=== PATIENT | male | born 1945 | race Caucasian/White ===

== ENCOUNTER 2016-06-23 | Outpatient (CLI) | payer MEDICARE, BC | END 2016-06-23 03:12 | disposition critical access hospital (66) | CPT/HCPCS: A0425; A0429 ==

== ENCOUNTER 2016-06-23 03:22 | Emergency (ER) | payer MEDICARE, BC ==
[2016-06-23] MEDS ORDERED: DEXAMETHASONE 10 MG/ML VIAL PO STA (04:08)
[2016-06-23] MEDS ORDERED: HYDROmorphone 1 MG/ML SYRINGE IM STA ×2 (04:08→04:58)
[2016-06-23] MEDS ORDERED: KETOROLAC 60 MG/2 ML VIAL IM STA (04:08)
[2016-06-23] MEDS ORDERED: ACYCLOVIR 200 MG CAPSULE PO STA (04:08)
[2016-06-23] MEDS ORDERED: ONDANSETRON ODT 4 MG TABLET TL STA (04:09)
[2016-06-23] MEDS ORDERED: ONDANSETRON ODT 4 MG TABLET ONE (04:17)
[2016-06-23] MEDS ORDERED: KETOROLAC 60 MG/2 ML VIAL ONE (04:17)
[2016-06-23] MEDS ORDERED: CHERRY SYRUP 10 ML UDC PO ONE (04:17)
[2016-06-23] MEDS ORDERED: ACYCLOVIR 200 MG CAPSULE PO ONE (04:17)
[2016-06-23] MEDS ORDERED: DEXAMETHASONE 10 MG/ML VIAL ONE (04:17)
[2016-06-23] MEDS ORDERED: HYDROmorphone 1 MG/ML SYRINGE ONE ×2 (04:17→05:01)
== END 2016-06-23 05:23 | disposition home or self-care (01) ==
DX: B02.9 Zoster without complications (principal); M54.5 Low back pain; R21 Rash and other nonspecific skin eruption; I10 Essential (primary) hypertension; E11.9 Type 2 diabetes mellitus without complications; Z79.84 Long term (current) use of oral hypoglycemic drugs
CPT/HCPCS: 96372; 99283; 99284; A9270; J1170; Q0162

== ENCOUNTER 2016-07-05 09:35 | Outpatient (CLI) | payer MEDICARE, BC | END 2016-07-05 09:36 | disposition home or self-care (01) | DX: E11.9 Type 2 diabetes mellitus without complications (principal); I10 Essential (primary) hypertension ==

== ENCOUNTER 2017-04-20 10:20 | Outpatient (CLI) | payer MEDICARE, BC ==
[2017-04-20 16:11] LABS: BASOPHILS # (AUTO) 0.1 10^3/uL (0.0-0.1); BASOPHILS % (AUTO) 0.9 %; EOSINOPHILS # (AUTO) 0.1 10^3/uL (0.0-0.7); HCT - HEMATOCRIT 46.9 % (42.0-52.0); HGB - HEMOGLOBIN 15.9 g/dL (14.0-18.0); LYMPHOCYTES # (AUTO) 1.6 10^3/uL (1.5-3.5); LYMPHOCYTES % (AUTO) 22.8 %; MEAN CORPUSCULAR HEMOGLOBIN 29.9 pg (27.0-31.0); MEAN CORPUSCULAR VOLUME 87.9 fL (80.0-94.0); MEAN PLATELET VOLUME 8.6 fL (7.4-11.4); MONOCYTES # (AUTO) 0.6 10^3/uL (0.0-1.0); MONOCYTES % (AUTO) 7.9 %; NEUTROPHILS # (AUTO) 4.7 10^3/uL (1.5-6.6); NEUTROPHILS % (AUTO) 66.4 %; NUCLEATED RED BLOOD CELLS AUTO 0.1 /100WBC; RED BLOOD COUNT 5.33 10^6/uL (4.70-6.10); RED CELL DISTRIBUTION WIDTH 13.3 % (12.0-15.0); UNCORRECTED WHITE BLOOD COUNT 7.1 x10^3/uL; WHITE BLOOD COUNT 7.1 x10^3/uL (4.8-10.8)
[2017-04-20 16:58] LABS: PSA FREE 0.352 ng/mL (0.16-2.81)
[2017-04-20 16:59] LABS: ALBUMIN/GLOBULIN RATIO 1.3 (1.0-2.2); BILIRUBIN,TOTAL 0.7 mg/dL (0.2-1.0); BUN - BLOOD UREA NITROGEN 17 mg/dL (6-20); CARBON DIOXIDE - CO2 25 mmol/L (21-32); CHLORIDE 104 mmol/L (101-111); CHOL/HDL RATIO 4.5 (<5.0); CHOLESTEROL 189 mg/dL; CREATININE 0.8 mg/dL (0.6-1.2); GFR - MDRD 95 (>89); GLUCOSE 283 mg/dL (70-100); HDL CHOLESTEROL 42 mg/dL; LDL/HDL RATIO 2.9 (<3.6); POTASSIUM 4.4 mmol/L (3.5-5.0); PSA TOTAL 1.164 ng/mL (0.000-2.000); SODIUM 137 mmol/L (135-145); TOTAL PROTEIN 7.2 g/dL (6.7-8.2); TRIGLYCERIDES 131 mg/dL; VLDL CHOLESTEROL 26 mg/dL
[2017-04-20 18:04] LABS: HEMOGLOBIN A1C 1.38 g/dL
== END 2017-04-20 10:21 | disposition home or self-care (01) ==
LOC: LAB.WCP 10:20
PROVIDERS: ATTEND Family Medicine
DX: I10 Essential (primary) hypertension (principal); E11.9 Type 2 diabetes mellitus without complications; Z12.5 Encounter for screening for malignant neoplasm of prostate
CPT/HCPCS: 36415; 80053; 80061; 83036; 84154; 85025

== ENCOUNTER 2017-07-31 08:00 | Outpatient (CLI) | payer MEDICARE, BC ==
[2017-07-31 20:01] LABS: HEMOGLOBIN A1C 1.11 g/dL; HEMOGLOBIN A1C % 8.5 % (4.6-6.2)
== END 2017-07-31 08:01 | disposition home or self-care (01) ==
LOC: LAB.WCP 08:00
PROVIDERS: ATTEND Family Medicine
DX: E11.9 Type 2 diabetes mellitus without complications (principal)
CPT/HCPCS: 36415; 83036

== ENCOUNTER 2017-09-03 07:49 | Observation (INO) | payer MEDICARE, BC ==
[2017-09-03] MEDS ORDERED: ONDANSETRON 4 MG/2 ML VIAL IVP STA (08:37)
[2017-09-03] MEDS ORDERED: KETOROLAC 60 MG/2 ML VIAL IVP STA (08:37)
--- NOTE | 2017-09-03 08:40 | ED Physician Documentation ---
PD HPI ABD PAIN - Stated complaint Stated Complaint: MALE /ABD PX VOMITING - Chief complaint Chief Complaint: Abd Pain - History obtained from History obtained from: Patient, Family - History of Present Illness Timing - onset: Enter time (629), Today Timing - duration: Hours Timing - details: Abrupt onset, Still present Quality: Sharp, Pain Location: All over / everywhere, RLQ Radiation: Chest Improved by: Laying still Worsened by: Moving, Position, Palpation Associated symptoms: Nausea, Vomiting, Loss of appetite. No: Fever Similar symptoms before: Has not had sx before Recently seen: Not recently seen - Additional information Additional information: 71-year-old male still employed as a [employer] as developed acute abdominal pain this morning. He indicates that he did not feel well last night after eating dinner but did not have pain at the time. When he awoke this morning he noted pain generally in his abdomen he does have some pain with tenderness in the right lower quadrant and his pain is worse with moving around. He is somewhat more comfortable laying still. Review of Systems Constitutional: denies: Fever Eyes: denies: Decreased vision Ears: denies: Ear pain Nose: denies: Congestion Throat: denies: Sore throat Cardiac: denies: Chest pain / pressure, Palpitations Respiratory: denies: Dyspnea, Cough GI: reports: Abdominal Pain, Nausea, Vomiting, Diarrhea : denies: Dysuria, Frequency Skin: denies: Rash Musculoskeletal: denies: Neck pain, Back pain, Extremity pain Neurologic: denies: Generalized weakness, Focal weakness, Numbness Psychiatric: denies: Depressed PD PAST MEDICAL HISTORY - Past Medical History Past Medical History: Yes Cardiovascular: Hypertension Endocrine/Autoimmune: Type 2 diabetes - Past Surgical History Past Surgical History: Yes - Present Medications Home Medications: Ambulatory Orders Medication Instructions Recorded Confirmed Losartan Potassium [Cozaar] 100 mg PO DAILY 09/03/17 09/03/17 Metoprolol Tartrate [Lopressor] 50 mg PO BID 09/03/17 09/03/17 Sertraline HCl [Zoloft] 100 mg PO DAILY 09/03/17 09/03/17 Tamsulosin [Flomax] 0.4 mg PO QPM 09/03/17 09/03/17 hydroCHLOROthiazide [Hydrodiuril] 25 mg PO DAILY 09/03/17 09/03/17 metFORMIN [Glucophage] 1,000 mg PO BIDWM 09/03/17 09/03/17 - Allergies Allergies/Adverse Reactions: Allergies Allergy/AdvReac Type Severity Reaction Status Date / Time oxycodone AdvReac Mild Hallucinati Verified 09/03/17 07:57 ons - Social History Does the pt smoke?: No Smoking Status: Never smoker Does the pt drink ETOH?: Yes Does the pt have substance abuse?: No - Immunizations Immunizations are current?: Yes - POLST Patient has POLST: No PD ED PE NORMAL - Vitals Vital signs reviewed: Yes (hypertensive) - General General: Alert and oriented X 3, Well developed/nourished, Other (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 ) - HEENT HEENT: Atraumatic, PERRL, EOMI - Neck Neck: Supple, no meningeal sign, No bony TTP - Cardiac Cardiac: RRR, No murmur - Respiratory Respiratory: No respiratory distress, Clear bilaterally - Abdomen Abdomen: Soft, Other (RLQ tenderness is reproducible and there is guarding. There is rebound tenderness referred to the RLQ) - Back Back: No CVA TTP, No spinal TTP - Derm Derm: Normal color, Warm and dry, No rash - Extremities Extremities: No deformity, No edema - Neuro Neuro: Alert and oriented X 3, No motor deficit, No sensory deficit, Normal speech Eye Opening: Spontaneous Motor: Obeys Commands Verbal: Oriented GCS Score: 15 - Psych Psych: Normal mood, Other (flat affect) Results - Vitals Vitals: Vital Signs - 24 hr 09/03/17 09/03/17 09/03/17 07:57 12:35 12:40 Temperature 36.5 C Heart Rate 84 Respiratory 20 Rate Blood Pressure 174/92 H O2 Saturation 99 98 99 09/03/17 09/03/17 09/03/17 12:50 12:56 13:00 Temperature Heart Rate Respiratory Rate Blood Pressure O2 Saturation 97 99 99 09/03/17 09/03/17 09/03/17 13:05 13:11 13:15 Temperature Heart Rate Respiratory Rate Blood Pressure O2 Saturation 92 93 92 09/03/17 09/03/17 09/03/17 13:20 13:25 13:30 Temperature Heart Rate Respiratory Rate Blood Pressure O2 Saturation 92 92 92 09/03/17 09/03/17 13:35 13:40 Temperature Heart Rate Respiratory Rate Blood Pressure O2 Saturation 93 95 Oxygen O2 Source Room air - Labs Labs: Laboratory Tests 09/03/17 09/03/17 09/03/17 08:15 08:45 08:45 WBC 13.9 H RBC 5.22 Hgb 15.4 Hct 44.9 MCV 86.1 MCH 29.6 MCHC 34.3 RDW 13.7 Plt Count 167 MPV 8.5 Neut # 11.8 H Lymph # 1.0 L [place] # 1.0 Eos # 0.1 Baso # 0.1 Absolute Nucleated RBC 0.00 Nucleated RBC % 0.0 Sodium 133 L Potassium 3.8 Chloride 100 L Carbon Dioxide 26 Anion Gap 7.0 BUN 18 Creatinine 0.8 Estimated GFR (MDRD) 95 Glucose 238 H POC Whole Bld Glucose Calcium 8.8 Total Bilirubin 0.8 AST 15 ALT 14 Alkaline Phosphatase 80 Troponin I Total Protein 7.3 Albumin 4.1 Globulin 3.2 Albumin/Globulin Ratio 1.3 Lipase 16 L Urine Color YELLOW Urine Clarity CLEAR Urine pH 5.5 Ur Specific [place] 1.025 Urine Protein NEGATIVE Urine Glucose (UA) 500 H Urine Ketones NEGATIVE Urine Occult Blood NEGATIVE Urine Nitrite NEGATIVE Urine Bilirubin NEGATIVE Urine Urobilinogen 0.2 (NORMAL) Ur Leukocyte Esterase NEGATIVE Ur Microscopic Review NOT INDICATED Urine Culture Comments NOT INDICATED 09/03/17 09/03/17 09/03/17 08:45 11:38 13:14 WBC RBC Hgb Hct MCV MCH MCHC RDW Plt Count MPV Neut # Lymph # [place] # Eos # Baso # Absolute Nucleated RBC Nucleated RBC % Sodium Potassium Chloride Carbon Dioxide Anion Gap BUN Creatinine Estimated GFR (MDRD) Glucose POC Whole Bld Glucose 189 H 203 H Calcium Total Bilirubin AST ALT Alkaline Phosphatase Troponin I < 0.04 Total Protein Albumin Globulin Albumin/Globulin Ratio Lipase Urine Color Urine Clarity Urine pH Ur Specific [place] Urine Protein Urine Glucose (UA) Urine Ketones Urine Occult Blood Urine Nitrite Urine Bilirubin Urine Urobilinogen Ur Leukocyte Esterase Ur Microscopic Review Urine Culture Comments Procedures - Bedside sono Bedside sono by EMP: With use of bedside ultrasound the kidneys are imaged there is renal cyst present bilaterally a larger one on the left than the right both kidneys are sonographically nontender and without evidence of hydronephrosis. The bladder appears to have an average amount of urine in it and is not specifically tender. - IVC sono (time) o830 Bedside IVC sono: IVC measures (cm) (1.57), Euvolemia PD MEDICAL DECISION MAKING - ED course Complexity details: reviewed old records, reviewed results, re-evaluated patient , considered differential, d/w patient, d/w family ED course: 71-year-old male with acute onset of abdominal pain has right lower quadrant tenderness on exam concern is for appendicitis and CT of the abdomen pelvis with IV contrast is obtained.The CT confirms appendicitis and Dr. Mansoor Marie is consulted in the case and takes the patient to the operating room. Departure - Departure Disposition: ED Transfer to [facility] Clinical Impression: Appendicitis Qualifiers: Appendicitis type: acute appendicitis Acute appendicitis type: with localized peritonitis Qualified Code(s): K35.3 - Acute appendicitis with localized peritonitis Condition: Stable Discharge Date/Time: 09/03/17 11:21
[2017-09-03 08:57] LABS: BILIRUBIN,URINE NEGATIVE (NEGATIVE); GLUCOSE, URINE (UA) 500 mg/dL (NEGATIVE); KETONES,URINE (UA) NEGATIVE (NEGATIVE); LEUKOCYTE ESTERASE, URINE NEGATIVE (NEGATIVE); NITRITE,URINE NEGATIVE (NEGATIVE); OCCULT BLOOD,URINE NEGATIVE (NEGATIVE); PH,URINE 5.5 PH (5.0-7.5); PROTEIN,URINE NEGATIVE (NEGATIVE); UROBILINOGEN,URINE 0.2 (NORMAL) E.U./dL (NORMAL)
[2017-09-03 08:57] LABS: BASOPHILS # (AUTO) 0.1 10^3/uL (0.0-0.1); BASOPHILS % (AUTO) 0.5 %; EOSINOPHILS # (AUTO) 0.1 10^3/uL (0.0-0.7); EOSINOPHILS % (AUTO) 0.6 %; HGB - HEMOGLOBIN 15.4 g/dL (14.0-18.0); LYMPHOCYTES % (AUTO) 7.1 %; MEAN CORPUSCULAR HEMOGLOBIN 29.6 pg (27.0-31.0); MEAN CORPUSCULAR HGB CONC 34.3 g/dL (32.0-36.0); MEAN CORPUSCULAR VOLUME 86.1 fL (80.0-94.0); MEAN PLATELET VOLUME 8.5 fL (7.4-11.4); MONOCYTES % (AUTO) 7.2 %; NEUTROPHILS # (AUTO) 11.8 10^3/uL (1.5-6.6); NEUTROPHILS % (AUTO) 84.6 %; PLT - PLATELET COUNT 167 10^3/uL (130-450); RED BLOOD COUNT 5.22 10^6/uL (4.70-6.10); RED CELL DISTRIBUTION WIDTH 13.7 % (12.0-15.0); WHITE BLOOD COUNT 13.9 x10^3/uL (4.8-10.8)
[2017-09-03 08:59] LABS: CLARITY,URINE CLEAR (CLEAR)
[2017-09-03 09:09] LABS: ALBUMIN 4.1 g/dL (3.2-5.5); ALBUMIN/GLOBULIN RATIO 1.3 (1.0-2.2); BILIRUBIN,TOTAL 0.8 mg/dL (0.2-1.0); CALCIUM 8.8 mg/dL (8.5-10.3); CREATININE 0.8 mg/dL (0.6-1.2); TOTAL PROTEIN 7.3 g/dL (6.7-8.2)
[2017-09-03] MEDS ORDERED: IOPAMIDOL-300 100 ML VIAL ONE (09:20)
--- NOTE | 2017-09-03 09:51 | CT Report ---
EXAM: CT ABDOMEN AND PELVIS EXAM DATE: 09/03/2017 09:28 AM. CLINICAL HISTORY: RLQ and general abdominal pain. COMPARISONS: CT KUB 03/21/2016. TECHNIQUE: Routine helical CT imaging was performed through the abdomen and pelvis. IV contrast: ISOV UE 300 100mL. Enteric contrast: No. Reconstructions: Coronal and sagittal. In accordance with CT protocol optimization, one or more of the following dose reduction techniques w ere utilized for this exam: automated exposure control, adjustment of mA and/or KV based on patient s ize, or use of iterative reconstructive technique. FINDINGS: Lung Bases: Moderate esophageal hiatal hernia. Liver: Tiny discrete hypodensities in segment 4 and 2/3, nonspecific but possibly cysts. Gallbladder/bile Ducts: Unremarkable. Spleen: Normal. Pancreas: Normal. Adrenal Glands: Normal. Kidneys: No hydronephrosis. Similar large right lower pole nonobstructing calculus measuring up to ap proximately 22 x 10 mm with staghorn configuration. Grossly similar multiple bilateral renal cortical hypodensities, suggestive of cysts. Peritoneal Cavity/Bowel: Diverticulosis. Appendix is enlarged measuring up to 16 mm with mild periapp endiceal stranding. No organized fluid collection. No free air or free fluid. Pelvic Organs: Normal. The bladder and visualized pelvic organs are within normal limits. Vasculature: No aneurysms or other significant abnormality. Bones: Multilevel lumbar degeneration. No acute fracture or suspicious bony lesion. Other: None. IMPRESSION: 1. Findings are consistent with acute appendicitis. 2. Other findings as noted above. [facility] Referring Provider Line: [phone] SITE ID: [id number]
--- NOTE | 2017-09-03 09:51 | CT Preliminary Report ---
Exam: CT ABDOMEN/PELVIS W/ IMPRESSION: 1. Findings are consistent with acute appendicitis. 2. Other findings as noted above. [facility] SITE ID: [id number]
[2017-09-03] MEDS ORDERED: SODIUM CHLORIDE 0.9% 1,000 ML IV ONE (10:12)
[2017-09-03] MEDS ORDERED: PIPERACILLIN/TAZOBACTAM 3.375 GM in SODIUM CHLORIDE 0.9% MINIBAG 100 ML IV STA (10:13)
[2017-09-03] MEDS ORDERED: BUPIVACAINE 0.5%-EPI 1:200000 PF 10 ML VIAL ONE (10:40)
--- NOTE | 2017-09-03 11:11 | CONSULTATION NOTE ---
Referring Provider Name of Referring Provider:: Dr. Petit Consult Date: 09/03/17 Chief Complaint - Chief Complaint Chief Complaint: Abd Pain History of Present Illness - Admitted From Admitted From:: ED - History Obtained From Records Reviewed: yes History obtained from: pt Exam Limitations: none - History of Present Illness HPI Comment/Other: 71 yo male with 24 hour hx of RLQ pain associated with nausea and retching, which suddenly worsened at 0600 today prompting him to come to the ER for evaluation. Pain is constant steady, 7/10 severity, worse with movement, better with rest; no prior similar; no change in bowel habits which are chronically irregular per pt. Pt has hx ulcerative colitis with recent colonoscopy 2 yrs ago per pt. No melena, hematochezia; 20# wt loss/year, intentional per pt. Neg FH CRC. No fever/chills, others in household with similar sx or unusual oral intake. No acute urinary or respiratory sx. History - Past Medical History Cardiovascular: reports: Hypertension Endocrine/Autoimmune: reports: Type 2 diabetes GI: reports: Colon polyps, Ulcerative colitis : reports: Nocturia Psych: reports: Depression MRSA Hx?: No - Past Surgical History Ortho: reports: Other (right shoulder and left ankle surgery) - Family & Social History Family History Comment/Other: neg for CRC Living arrangement: At home Living Situation: With spouse/s.o. - Substance History Use: Uses substance without health or social issues: NONE Abuse: Recurrent use of substance despite neg consequences: NONE Dependence: Experiences withdrawal or developed tolerances: NONE - POLST Patient has POLST: No POLST Status: Full Code Meds/Allgy - Home Medications Home Medications: Ambulatory Orders Medication Instructions Recorded Confirmed "For Blood Pressure" 01/23/16 "For Urination" 01/23/16 Metformin HCl DAILY 03/21/16 Acyclovir 800 mg PO 5XD #35 tablet 06/23/16 Dexamethasone [Decadron] 4 mg PO DAILY #5 tablet 06/23/16 HYDROmorphone [Dilaudid] 2 mg PO Q4H PRN #20 tablet 06/23/16 Naproxen 375 mg PO BID #20 tablet 06/23/16 - Allergies Allergies/Adverse Reactions: Allergies Allergy/AdvReac Type Severity Reaction Status Date / Time oxycodone AdvReac Mild Hallucinati Verified 09/03/17 07:57 ons Review of Systems - Constitutional Constitutional: reports: Poor appetite, Weight loss (intentional with diet) - Cardiovascular Cariovascular: denies: Irregular heart rate, Palpitations, Chest pain - Respiratory Respiratory: denies: Cough, Sputum production, Wheezing, SOB at rest, SOB with exertion - Gastrointestinal Gastrointestinal: reports: Abdominal pain, Nausea, Poor appetite. denies: Change in bowel habits, Rectal bleeding, Black stools, Bloody stools, Vomiting, Coffee grounds emesis - Genitourinary Genitourinary: reports: Frequency, Nocturia - Musculoskeletal Musculoskeletal: reports: Back pain, Muscle aches - Neurological Neurological: reports: Dizziness - Psychiatric Psychiatric: reports: Depression - Hematologic/Lymphatic Hematologic/Lymphatic: denies: Blood clots, Bleeding tendencies, Recurrent infections - All Other Systems All Other Systems: reports: Reviewed and negative Exam - Vital Signs Vital Signs: Vital Signs x48h Temp Pulse Resp BP Pulse Ox 09/03/17 07:57 36.5 C 84 20 174/92 H 99 - Physical Exam General Appearance: positive: Moderate distress Eyes Bilateral: positive: Normal inspection, EOMI, Conjunctivae nml, No scleral icterus ENT: positive: Pharynx nml, Dry mucous membranes Neck: positive: Nml inspection Respiratory: positive: No respiratory distress, Breath sounds nml. negative: Wheezes, Rales, Rhonchi Cardiovascular: positive: Regular rate & rhythm, No murmur, No gallop. negative : Irregularly irregular, Extrasystoles, Tachycardia, Systolic murmur, Diastolic murmur, Gallop/S3, Gallop/S4 Abdomen: positive: No organomegaly, Nml bowel sounds, Tenderness (RLQ with peritoneal signs and +Rovsing's sign), Guarding, Rebound. negative: Hepatomegaly, Splenomegaly, Mass Back: positive: Nml inspection. negative: CVA tenderness (R), CVA tenderness (L ) Skin: positive: Color nml, No rash, Warm, Dry. negative: Cyanosis, Diaphoresis Extremities: positive: Non-tender, Full ROM, No pedal edema. negative: Calf tenderness Neurologic/Psychiatric: positive: Oriented x3, Mood/affect nml Conclusion/Plan - Diagnosis Diagnosis: Acute appendicitis - Plan Plan: Lap appy. PAR conf with pt and consent obtained. Will schedule for later today. - Lab Results Fish Bones: 09/03/17 08:45 09/03/17 08:45 - Diagnostic Imaging Results Diagnostic Imaging Results: positive: Prelim report reviewed, Final report reviewed, Read independently Diagnostic Imaging Results Comments: thickened appendix with periappendiceal fat stranding c/w acute uncomplicated appendicitis. - EKG Results EKG Interpreted Independently: No
[2017-09-03] MEDS ORDERED: LACTATED RINGERS 1,000 ML IV ONE (11:21)
[2017-09-03] MEDS ORDERED: DEXAMETHASONE 4 MG/ML VIAL IVP ONE (11:30)
[2017-09-03] MEDS ORDERED: fentaNYL 100 MCG/2 ML VIAL IVP ONE (11:30)
[2017-09-03] MEDS ORDERED: MIDAZOLAM 2 MG/2 ML VIAL IVP ONE (11:30)
[2017-09-03] MEDS ORDERED: SUCCINYLCHOLINE 200 MG/10 ML VIAL IVP ONE (11:30)
[2017-09-03] MEDS ORDERED: LIDOCAINE-MPF 2% 5 ML VIAL IM ONE (11:30)
[2017-09-03] MEDS ORDERED: ACETAMINOPHEN 1,000 MG/100 ML 100 ML IV ONE ×2 (11:30→12:50)
[2017-09-03] MEDS ORDERED: NEOSTIGMINE 1 MG/1 ML 10 ML MDV IVP ONE (11:30)
[2017-09-03] MEDS ORDERED: GLYCOPYRROLATE 1 MG/5 ML VIAL IVP ONE (11:30)
[2017-09-03] MEDS ORDERED: PROPOFOL 200 MG/20 ML VIAL IVP ONE (11:30)
[2017-09-03] MEDS ORDERED: PHENYLEPHRINE 50 MG/5 ML VIAL IV ONE (11:30)
[2017-09-03] MEDS ORDERED: ePHEDrine 50 MG/ML VIAL IVP ONE (11:30)
[2017-09-03] MEDS ORDERED: ROCURONIUM 50 MG/5 ML VIAL IVP ONE (11:30)
[2017-09-03] MEDS ORDERED: BUPIVACAINE 0.5%-EPI 1:200000 PF 30 ML VIAL SUBQ ONE (11:48)
--- NOTE | 2017-09-03 13:12 | OPERATIVE REPORT ---
DATE OF SERVICE: 09/03/2017 Physician: Shawn Marie MD DATE OF PROCEDURE: 09/03/2017 PREOPERATIVE DIAGNOSIS: Acute appendicitis. POSTOPERATIVE DIAGNOSIS: Acute appendicitis. PROCEDURE PERFORMED: Laparoscopic appendectomy. ANESTHESIA: General endotracheal. SURGEON: Shawn Marie MD ESTIMATED BLOOD LOSS: Minimal. DRAINS: None. COMPLICATIONS: None. FINDINGS: Laparoscopy revealed a markedly inflamed appendix with periappendiceal inflammation and exudate, but no gross gangrenous change or signs of perforation. There was no significant free fluid. The cecal base appeared to be uninflamed. The visualized portions of the terminal ileum, colon, and pelvis were otherwise within normal limits. INDICATIONS: The patient is a 71-year-old gentleman with a 24-hour history of right lower quadrant pain associated with localized peritoneal signs and elevated white count, and a CT scan showing findings consistent with acute nonperforated appendicitis. We saw him from acute appendicitis and advised him to undergo laparoscopic appendectomy for definitive treatment. TECHNIQUE: After informed consent, the patient was taken to the operating room and was placed under general endotracheal anesthesia. Preoperative preparation including administration of 3.375 grams of Zosyn intravenously immediately prior to the incision as well as application of sequential calf compression boots. His abdomen was clipped and prepared with ChloraPrep solution, draped in the usual sterile fashion. A transverse incision made along the inferior edge of the umbilicus and carried down through the layers of the abdominal wall until the peritoneum was identified and entered sharply. A 10 mm Coty cannula was inserted. Pneumoperitoneum was achieved with carbon dioxide. A 10 mm 30-degree [place] telescope was inserted. Laparoscopy was carried out. Findings noted above. Two additional 5 mm ports were placed in the lower midline and left lower quadrant. Instruments were passed. The appendix was mobilized. The mesoappendix was ligated and divided with the LigaSure device after the appendix had been fully mobilized. The Ethicon 45 mm linear stapling and cutting device with a vascular load was used to ligate and divide the appendix at its junction with the cecal base. This provided hemostasis as well as secure closure. The appendix was placed in organ retrieval bag, extracted and sent for pathologic evaluation. After hemostasis was assured , the right lower quadrant was irrigated with saline solution following which the instruments and cannulas were removed under direct vision. Pneumoperitoneum was allowed to escape and the incisions were closed in layers using continuous 0 Vicryl. We approximated the midline fascia at the umbilicus, followed by 4-0 Monocryl subcuticular skin closure at all the port sites. Approximately 20 mL of 0.5% Marcaine with epinephrine was infiltrated into the incisions to assist in postoperative analgesia. Dermabond was applied to the incisions. Anesthesia was terminated and the patient transferred to the recovery room in satisfactory condition. Sponge and needle counts were correct x2. No drains were used. cc: Danilo Muhammad M.D. TD: 09/03/2017 13:10 MTDD
[2017-09-03] MEDS ORDERED: ACETAMINOPHEN 1,000 MG/100 ML 100 ML IV PRN ×2 (14:39→18:00)
[2017-09-03] MEDS: LACTATED RINGERS 1,000 ML IV SCH (15:03)
[2017-09-03] MEDS ORDERED: IOPAMIDOL-300 100 ML VIAL IVP ONE (15:17)
[2017-09-03] MEDS ORDERED: SODIUM CHLORIDE FLUSH 0.9% 10 ML SYRINGE ONE (16:17)
[2017-09-03] MEDS: PIPERACILLIN/TAZOBACTAM 3.375 GM in SODIUM CHLORIDE 0.9% MINIBAG 100 ML IV SCH ×2 (16:24→23:04)
[2017-09-03] MEDS: KETOROLAC 15 MG/ML VIAL IVP PRN (16:25)
[2017-09-03] MEDS: SODIUM CHLORIDE FLUSH 0.9% 10 ML SYRINGE IVP SCH (16:41)
[2017-09-03] MEDS ORDERED: ONDANSETRON 4 MG/2 ML VIAL IVP PRN (17:00)
[2017-09-03] MEDS ORDERED: ENOXAPARIN 40 MG/0.4 ML SYRINGE SUBQ SCH (21:00)
[2017-09-03] MEDS ORDERED: metFORMIN 500 MG TABLET PO SCH (22:30)
[2017-09-04] MEDS: KETOROLAC 15 MG/ML VIAL IVP PRN (00:22)
[2017-09-04] MEDS: SODIUM CHLORIDE FLUSH 0.9% 10 ML SYRINGE IVP SCH ×2 (00:22→09:16)
[2017-09-04] MEDS: SODIUM CHLORIDE FLUSH 0.9% 10 ML SYRINGE IVP PRN ×2 (02:56→05:10)
[2017-09-04] MEDS: PIPERACILLIN/TAZOBACTAM 3.375 GM in SODIUM CHLORIDE 0.9% MINIBAG 100 ML IV SCH (05:10)
[2017-09-04 05:12] LABS: BASOPHILS % (AUTO) 0.5 %; EOSINOPHILS % (AUTO) 0.3 %; HGB - HEMOGLOBIN 12.6 g/dL (14.0-18.0); LYMPHOCYTES # (AUTO) 1.3 10^3/uL (1.5-3.5); LYMPHOCYTES % (AUTO) 15.4 %; MEAN CORPUSCULAR HEMOGLOBIN 29.5 pg (27.0-31.0); MEAN CORPUSCULAR HGB CONC 34.1 g/dL (32.0-36.0); MEAN CORPUSCULAR VOLUME 86.6 fL (80.0-94.0); MEAN PLATELET VOLUME 8.4 fL (7.4-11.4); MONOCYTES # (AUTO) 0.7 10^3/uL (0.0-1.0); MONOCYTES % (AUTO) 8.5 %; NEUTROPHILS # (AUTO) 6.6 10^3/uL (1.5-6.6); NEUTROPHILS % (AUTO) 75.3 %; PLT - PLATELET COUNT 149 10^3/uL (130-450); RED BLOOD COUNT 4.25 10^6/uL (4.70-6.10); RED CELL DISTRIBUTION WIDTH 14.1 % (12.0-15.0); WHITE BLOOD COUNT 8.7 x10^3/uL (4.8-10.8)
[2017-09-04 05:24] LABS: CALCIUM 7.9 mg/dL (8.5-10.3); CREATININE 0.9 mg/dL (0.6-1.2)
[2017-09-04] MEDS: LACTATED RINGERS 1,000 ML IV SCH (06:30)
[2017-09-04] MEDS ORDERED: metFORMIN 500 MG TABLET PO SCH (08:00)
--- NOTE | 2017-09-04 08:46 | PROVIDER PROGRESS NOTE ---
Subjective - General Admit Date: 09/03/17 Procedure Date: 09/03/17 Post Op Days: 1 Procedure Performed: Lap Appy - Review of Systems Wound/Incisions: positive: Healing well, No drainage General: positive: No symptoms HEENT: positive: No symptoms Pulmonary: positive: No symptoms Cardiovascular: positive: No symptoms Gastrointestinal: positive: Abdominal pain (expected incisional discomfort), Flatus. negative: Nausea, Vomiting, Difficulty swallowing Genitourinary: positive: Other (slight increase in usual hesitancy, but able to void well.) Musculoskeletal: positive: No symptoms Skin: positive: No symptoms Psychiatric: positive: No symptoms Objective - Patient Data Vital Signs: Vital Signs x48h Temp Pulse Resp BP Pulse Ox 09/04/17 08:16 37.0 C 66 18 133/68 H 93 09/04/17 05:05 36.6 C 67 18 129/68 93 Intake & Output: Intake and Output Totals x24h 09/02/17 09/03/17 09/04/17 23:59 23:59 23:59 Intake Total 900 2160 Balance 900 2160 - Lab Results Lab Results: 09/04/17 04:37 09/04/17 04:37 Other Lab Results: Lab Results x24hrs 09/04/17 09/04/17 09/04/17 Range/Units 07:28 04:37 04:37 WBC 8.7 (4.8-10.8) x10^3/uL RBC 4.25 L (4.70-6.10) 10^6/uL Hgb 12.6 L (14.0-18.0) g/dL Hct 36.9 L (42.0-52.0) % MCV 86.6 (80.0-94.0) fL MCH 29.5 (27.0-31.0) pg MCHC 34.1 (32.0-36.0) g/dL RDW 14.1 (12.0-15.0) % Plt Count 149 (130-450) 10^3/uL MPV 8.4 (7.4-11.4) fL Neut # 6.6 (1.5-6.6) 10^3/uL Lymph # 1.3 L (1.5-3.5) 10^3/uL [place] # 0.7 (0.0-1.0) 10^3/uL Eos # 0.0 (0.0-0.7) 10^3/uL Baso # 0.0 (0.0-0.1) 10^3/uL Absolute Nucleated RBC 0.01 x10^3/uL Nucleated RBC % 0.1 /100WBC Sodium 132 L (135-145) mmol/L Potassium 3.6 (3.5-5.0) mmol/L Chloride 100 L (101-111) mmol/L Carbon Dioxide 25 (21-32) mmol/L Anion Gap 7.0 (6-13) BUN 19 (6-20) mg/dL Creatinine 0.9 (0.6-1.2) mg/dL Estimated GFR (MDRD) 83 L (>89) Glucose 200 H (70-100) mg/dL POC Whole Bld Glucose 180 H (70 - 100) mg/dL Calcium 7.9 L (8.5-10.3) mg/dL 09/03/17 Range/Units 21:22 WBC (4.8-10.8) x10^3/uL RBC (4.70-6.10) 10^6/uL Hgb (14.0-18.0) g/dL Hct (42.0-52.0) % MCV (80.0-94.0) fL MCH (27.0-31.0) pg MCHC (32.0-36.0) g/dL RDW (12.0-15.0) % Plt Count (130-450) 10^3/uL MPV (7.4-11.4) fL Neut # (1.5-6.6) 10^3/uL Lymph # (1.5-3.5) 10^3/uL [place] # (0.0-1.0) 10^3/uL Eos # (0.0-0.7) 10^3/uL Baso # (0.0-0.1) 10^3/uL Absolute Nucleated RBC x10^3/uL Nucleated RBC % /100WBC Sodium (135-145) mmol/L Potassium (3.5-5.0) mmol/L Chloride (101-111) mmol/L Carbon Dioxide (21-32) mmol/L Anion Gap (6-13) BUN (6-20) mg/dL Creatinine (0.6-1.2) mg/dL Estimated GFR (MDRD) (>89) Glucose (70-100) mg/dL POC Whole Bld Glucose 303 H (70 - 100) mg/dL Calcium (8.5-10.3) mg/dL - Current Medications Current Medications: Current Medications Generic Name Dose Route Start Last Admin Trade Name Freq PRN Reason Stop Dose Admin Enoxaparin Sodium 40 mg 09/03/17 21:00 09/04/17 05:03 Lovenox SUBQ Not Given Q24H IRMA Lactated Ringer's 1,000 mls @ 100 mls/hr 09/03/17 15:00 09/04/17 07:34 Lr IV Infused .Q10H IRMA Infusion Piperacillin Sod/Tazobactam 100 mls @ 200 mls/hr 09/03/17 17:00 09/04/17 07: 34 Sod 3.375 gm/ Sodium Chloride IV Infused Q6H IRMA Infusion Acetaminophen 100 mls @ 400 mls/hr 09/03/17 18:00 09/04/17 03:30 Ofirmev IV Infused Q6HR PRN Infusion PAIN Ketorolac Tromethamine 15 mg 09/03/17 16:00 09/04/17 00:22 Toradol Inj IVP 09/08/17 15:59 15 mg Q6HR PRN Administration PAIN Sodium Chloride 10 ml 09/03/17 17:00 09/04/17 00:22 Normal Saline Flush 0.9% IVP 10 ml 0100,0900,1700 IRMA Administration Sodium Chloride 10 ml 09/03/17 16:19 09/04/17 05:10 Normal Saline Flush 0.9% IVP 10 ml PRN PRN Administration NEEDED PER PROVIDER ORDERS - Physical Exam Wound/Incisions: positive: Healing well General Appearance: positive: No acute distress Eyes Bilateral: positive: Normal inspection, Conjunctivae nml, No scleral icterus ENT: positive: Pharynx nml, No signs of dehydration Neck: positive: Nml inspection, No JVD Respiratory: positive: Breath sounds nml Cardiovascular: positive: Regular rate & rhythm, No murmur, No gallop Abdomen: positive: Nml bowel sounds, Tenderness (expected incisional and rlq tenderness, improved compared to preop). negative: Guarding, Rebound Skin: positive: Color nml, No rash, Warm, Dry. negative: Diaphoresis Extremities: positive: Non-tender, No pedal edema. negative: Calf tenderness Neurologic/Psychiatric: positive: Oriented x3 Impression/Plan - Problem List Problem List: Acute appendicitis- doing well POD 1. No evidence of sepsis; Plan d/c home; RTO 1 week; non narcotic analgesics. NIDDM- satisfactory blood glucose in periop period; will resume his usual meds and f/u with his PCP HTN- satisf B/P at present; will resume usual meds at d/c.
--- NOTE | 2017-09-04 08:57 | Discharge Plan ---
Discharge Plan Disposition: Home, Self Care Condition: Good Prescriptions: Acetaminophen 500 mg PO Q6HR PRN #30 tablet PRN Reason: Abdominal Pain Diet: Diabetic (resume your usual diabetic diet) Activity Restrictions: no work, or lifting more than 10 lbs for 1 week; ambulate daily as tolerated Shower Restrictions: No Driving Restrictions: Yes (no driving while using narcotics) Weight Bearing: Full Weight Instruction Topics: Appendectomy After, Appendectomy Laparoscopic Dc Additional Instructions or Follow Up instructions: You had your appendix removed for acute appendicitis. Follow up with Dr. Marie in his office next week. No Smoking: If you smoke, Please STOP! Call for help. Follow-up with: Anmol Muhammad MD [Primary Care Provider] - 1 Week (needs reassessment of diabetes control and meds, s/p appendectomy.)
--- NOTE | 2017-09-04 09:10 | DISCHARGE SUMMARY ---
"Discharge Summary Admit Date: 09/03/17 Discharge Date: 09/04/17 Discharging Provider: Shawn Marie MD Primary Care Provider: Dr. Muhammad Code Status: Attempt Resuscitation Condition at Discharge: Good Discharge Disposition: 01 Home, Self Care - DIAGNOSES Admission Diagnoses: Acute appendicitis Discharge Diagnoses with Status of Each Condition: Same, resolved. - HPI History of Present Illness: See H & P - CONSULTS | PROCEDURES Procedures: Lap Appy 09/03/17 - HOSPITAL COURSE Hospital Course: Pt underwent lap appy on day of admission, and was kept overnight for observation given his age, diabetes, and concern about possible evolving sepsis. He did well and on PO Day 1 he was afebrile, with stable vs, tolerating oral intake well, ambulating and voiding well, with nl WBC count and no evidence of sepsis His pain was well controlled with non narcotic analgesics His FBS was 200. Arrangements will be made for him to follow up with his PCP regarding his diabetes. - ALLERGIES Allergies/Adverse Reactions: Allergies Allergy/AdvReac Type Severity Reaction Status Date / Time oxycodone AdvReac Mild Hallucinati Verified 09/03/17 07:57 ons - MEDICATIONS Home Medications: Ambulatory Orders Medication Instructions Recorded Confirmed Losartan Potassium [Cozaar] 100 mg PO DAILY 09/03/17 09/03/17 Metoprolol Tartrate [Lopressor] 50 mg PO BID 09/03/17 09/03/17 Sertraline HCl [Zoloft] 100 mg PO DAILY 09/03/17 09/03/17 Tamsulosin [Flomax] 0.4 mg PO QPM 09/03/17 09/03/17 hydroCHLOROthiazide [Hydrodiuril] 25 mg PO DAILY 09/03/17 09/03/17 metFORMIN [Glucophage] 1,000 mg PO BIDWM 09/03/17 09/03/17 Acetaminophen 500 mg PO Q6HR PRN #30 tablet 09/04/17 - PHYSICAL EXAM AT DISCHARGE General Appearance: positive: No acute distress, Alert Eyes Bilateral: positive: Conjunctivae nml, No scleral icterus ENT: positive: Pharynx nml, No signs of dehydration Neck: positive: Nml inspection, No JVD Respiratory: positive: No respiratory distress, Breath sounds nml Cardiovascular: positive: Regular rate & rhythm, No murmur, No gallop Abdomen: positive: Tenderness (expected postop tenderness) Skin: positive: Color nml, No rash, Warm, Dry Extremities: positive: Nml appearance, No pedal edema. negative: Calf tenderness Neurologic/Psychiatric: positive: Oriented x3 - LABS Result Diagrams: 09/04/17 04:37 09/04/17 04:37 - DIAGNOSTIC IMAGING Diagnostic Imaging Results: Final report reviewed - FOLLOW UP Follow Up: [address] Marie 1-[address] Muhammad - TIME SPENT Time Spent in Discharge (Minutes): 30"
[2017-09-04 09:12] VITALS: BP 132/69
[2017-09-05] MEDS ORDERED: metFORMIN 500 MG TABLET PO SCH (17:00)
== END 2017-09-04 09:35 | disposition home or self-care (01) ==
LOC: ED 07:49 → SDS 10:30 → ED 11:21 → SDS 12:29 → OBS 14:20
PROVIDERS: ADMIT Internal Medicine Gastroenterology; ATTEND Internal Medicine Gastroenterology
PROC: 0DTJ4ZZ Resection of Appendix, Percutaneous Endoscopic Approach (ICD-10-PCS; principal; 2017-09-03 11:21)
DX: K35.80 Unspecified acute appendicitis (principal); E11.9 Type 2 diabetes mellitus without complications; I10 Essential (primary) hypertension; R35.1 Nocturia; F32.9 Major depressive disorder, single episode, unspecified; Z79.84 Long term (current) use of oral hypoglycemic drugs; Z79.899 Other long term (current) drug therapy; Z87.19 Personal history of other diseases of the digestive system; Z86.010 Personal history of colon polyps
CPT/HCPCS: 36415; 44970; 74177; 80048; 80053; 81003; 83690; 84484; 85025; 96365; 96375; 99283; 99284; A9270; G0378; J0131; J0330; J7120; Q9967; 81001; 87086; 88304

== ENCOUNTER 2017-11-07 17:28 | Observation (INO) | payer MEDICARE, BC ==
--- NOTE | 2017-11-07 18:10 | ED Physician Documentation ---
PD HPI FOCAL NEURO - Stated complaint Stated Complaint: CONFUSION/LT SIDE FACE PX - Chief complaint Chief Complaint: Neuro - History obtained from History obtained from: Patient, Family ( mostly) - History of Present Illness Timing - onset: Today (72-year-old gentleman with history of diabetes on oral medications, otherwise healthy without neurologic problems in the past. His left early this morning, he was last seen normal last night. She got home around 330 and found him sitting in his chair having trouble operating the remote control and very confused. He did not have any trouble walking. He was complaining of a left-sided headache which is new. Patient is a poor historian with obvious memory difficulties today.) Review of Systems Unable to obtain: Confused PD PAST MEDICAL HISTORY - Past Medical History Cardiovascular: Hypertension Endocrine/Autoimmune: Type 2 diabetes GI: Colon polyps, Ulcerative colitis : Nocturia Psych: Depression - Past Surgical History Past Surgical History: Yes Ortho: Other (right shoulder and left ankle surgery) - Present Medications Home Medications: Ambulatory Orders Medication Instructions Recorded Confirmed Losartan Potassium [Cozaar] 100 mg PO DAILY 09/03/17 09/03/17 Metoprolol Tartrate [Lopressor] 50 mg PO BID 09/03/17 11/07/17 Sertraline HCl [Zoloft] 100 mg PO DAILY 09/03/17 11/07/17 Tamsulosin [Flomax] 0.4 mg PO QPM 09/03/17 11/07/17 hydroCHLOROthiazide [Hydrodiuril] 25 mg PO DAILY 09/03/17 11/07/17 metFORMIN [Glucophage] 1,000 mg PO BIDWM 09/03/17 11/07/17 Acetaminophen 500 mg PO Q6HR PRN #30 tablet 09/04/17 11/07/17 - Allergies Allergies/Adverse Reactions: Allergies Allergy/AdvReac Type Severity Reaction Status Date / Time oxycodone AdvReac Mild Hallucinati Verified 09/03/17 07:57 ons - Social History Does the pt smoke?: No Smoking Status: Never smoker Does the pt drink ETOH?: Yes Does the pt have substance abuse?: No - Immunizations Immunizations are current?: Yes - POLST Patient has POLST: No POLST Status: Full Code PD ED PE NORMAL - Vitals Vital signs reviewed: Yes - General General: Other (He is alert, able to name the year but not the month or date. 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 Eye Opening: Spontaneous Motor: Obeys Commands Verbal: Confused (Oriented to person and place but not time) GCS Score: 14 NIHSS - Time Time: 18:00 - Level of Consciousness Level of consciousness: (0) Alert, Keenly responsive LOC Questions: (1) Answers one Q correctly LOC Commands: (0) Performs both correctly - Gaze Best Gaze: (0) Normal - Visual Visual: (0) No loss - Facial Palsy Facial Palsy: (0) Normal, symmetrical movement - Motor Arms (both separate) Motor Arm (right): (0) No drift Motor Arm (left): (0) No drift - Motor Legs (both separate) Motor Leg (right): (0) No drift Motor Leg (left): (0) No drift - Limb Ataxia Limb Ataxia: (2) Present in 2 limbs (Mild in both upper extremities) - Sensory Sensory: (0) Normal - Best Language Best Language: (0) No aphasia - Dysarthria Dysarthria: (0) Normal - Extinction and Inattention (formally neg Extinction and inattention: (0) No abnormality - Total Score/Results Total Score/Result: 3 Results - Vitals Vitals: Vital Signs - 24 hr 11/07/17 11/07/17 11/07/17 17:30 18:30 19:30 Temperature 36.5 C Heart Rate 86 68 66 Respiratory 18 18 18 Rate Blood Pressure 193/78 H 158/74 H 156/72 H O2 Saturation 99 98 98 Oxygen O2 Source Room air - Labs Labs: Laboratory Tests 11/07/17 11/07/17 11/07/17 18:16 18:16 18:16 WBC 6.8 RBC 5.34 Hgb 15.8 Hct 46.9 MCV 87.8 MCH 29.6 MCHC 33.8 RDW 14.0 Plt Count 206 MPV 8.1 Neut # (Auto) 4.8 Lymph # (Auto) 1.3 L Elliott # (Auto) 0.5 Eos # (Auto) 0.1 Baso # (Auto) 0.1 Absolute Nucleated RBC 0.00 Nucleated RBC % 0.1 Sodium 133 L Potassium 4.2 Chloride 99 L Carbon Dioxide 26 Anion Gap 8.0 BUN 22 H Creatinine 0.8 Estimated GFR (MDRD) 95 Glucose 250 H POC Whole Bld Glucose 263 H Calcium 9.4 Total Bilirubin 0.5 AST 19 ALT 14 Alkaline Phosphatase 91 Total Protein 7.5 Albumin 4.1 Globulin 3.4 Albumin/Globulin Ratio 1.2 Lipase 30 Ethyl Alcohol < 5.0 - Rads (name of study) CT Head Radiology: EMP read contemporaneously (Atrophy, old lacune, NAD) PD MEDICAL DECISION MAKING - ED course ED course: This is a 72-year-old gentleman who presents with an acute confusion with some nystagmus and other strokelike symptoms. Initial head CT is negative for acute stroke, he does have an evidence of an old lacunar which was discussed with the patient and the family. Given his ongoing neurologic symptoms I think he should be placed in observation for potential MRI and neuro checks and I will call the hospitalist after shift change. Spoke with Dr. Borges for observation at 7:55 PM. - Sepsis Event Vital Signs: Vital Signs - 24 hr 11/07/17 11/07/17 11/07/17 17:30 18:30 19:30 Temperature 36.5 C Heart Rate 86 68 66 Respiratory 18 18 18 Rate Blood Pressure 193/78 H 158/74 H 156/72 H O2 Saturation 99 98 98 Oxygen O2 Source Room air Departure - Departure Disposition: ED Place in Observation Clinical Impression: Stroke-like symptoms Condition: Stable
[2017-11-07 18:23] LABS: BASOPHILS # (AUTO) 0.1 10^3/uL (0.0-0.1); BASOPHILS % (AUTO) 1.1 %; EOSINOPHILS # (AUTO) 0.1 10^3/uL (0.0-0.7); EOSINOPHILS % (AUTO) 1.7 %; HGB - HEMOGLOBIN 15.8 g/dL (14.0-18.0); LYMPHOCYTES # (AUTO) 1.3 10^3/uL (1.5-3.5); LYMPHOCYTES % (AUTO) 18.5 %; MEAN CORPUSCULAR HEMOGLOBIN 29.6 pg (27.0-31.0); MEAN CORPUSCULAR HGB CONC 33.8 g/dL (32.0-36.0); MEAN CORPUSCULAR VOLUME 87.8 fL (80.0-94.0); MEAN PLATELET VOLUME 8.1 fL (7.4-11.4); MONOCYTES # (AUTO) 0.5 10^3/uL (0.0-1.0); MONOCYTES % (AUTO) 7.4 %; NEUTROPHILS # (AUTO) 4.8 10^3/uL (1.5-6.6); NEUTROPHILS % (AUTO) 71.3 %; PLT - PLATELET COUNT 206 10^3/uL (130-450); RED BLOOD COUNT 5.34 10^6/uL (4.70-6.10); WHITE BLOOD COUNT 6.8 x10^3/uL (4.8-10.8)
--- NOTE | 2017-11-07 18:24 | CT Report ---
Procedure Date: 11/07/2017 Accession Number: [id number] / [id number] Procedure: CT - Head W/O CPT Code: FULL RESULT: EXAM: CT HEAD EXAM DATE: 11/07/2017 05:51 PM. CLINICAL HISTORY: Headache. Nausea and vomiting. Hypertension. COMPARISON: None. TECHNIQUE: Multiaxial CT images were obtained from the foramen magnum to the vertex. Reformats: Coronal. IV contrast: None. In accordance with CT protocol optimization, one or more of the following dose reduction techniques were utilized for this exam: automated exposure control, adjustment of mA and/or KV based on patient size, or use of iterative reconstructive technique. FINDINGS: Parenchyma: No intraparenchymal hemorrhage. 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 No evidence of mass, midline shift, or CT findings of acute infarction. Mcneil-white differentiation is distinct. Mild chronic microangiopathic white matter changes are evident. Extraaxial Spaces: Normal for age. No subdural or epidural collections identified. Ventricles: The ventricles and cortical sulci are prominent, consistent with age-related tissue loss. Sinuses and orbits: Imaged paranasal sinuses, orbits, and mastoids show no significant abnormality. Bones: No evidence of fracture or calvarial defect. Other: None. IMPRESSION: Generalized age-related cortical atrophic changes and old deep right white matter lacunar infarct, without evidence of acute intracranial abnormality. RADIA
[2017-11-07 18:35] LABS: ALBUMIN 4.1 g/dL (3.2-5.5); ALBUMIN/GLOBULIN RATIO 1.2 (1.0-2.2); ALKALINE PHOSPHATASE 91 IU/L (42-121); ALT ALANINE AMINOTRANSFERASE 14 IU/L (10-60); AST ASPARTATE AMINOTRANSFERASE 19 IU/L (10-42); BILIRUBIN,TOTAL 0.5 mg/dL (0.2-1.0); BUN - BLOOD UREA NITROGEN 22 mg/dL (6-20); CALCIUM 9.4 mg/dL (8.5-10.3); CARBON DIOXIDE - CO2 26 mmol/L (21-32); CHLORIDE 99 mmol/L (101-111); CREATININE 0.8 mg/dL (0.6-1.2); GFR - MDRD 95 (>89); GLUCOSE 250 mg/dL (70-100); LIPASE 30 U/L (22-51); SODIUM 133 mmol/L (135-145); TOTAL PROTEIN 7.5 g/dL (6.7-8.2)
[2017-11-07] MEDS ORDERED: ONDANSETRON 4 MG/2 ML VIAL IVP PRN (20:00)
[2017-11-07] MEDS ORDERED: HYDROcod/ACETAM 5/325 MG TABLET PO PRN (20:00)
[2017-11-07] MEDS ORDERED: ONDANSETRON ODT 4 MG TABLET TL PRN (20:00)
[2017-11-07] MEDS ORDERED: ACETAMINOPHEN 325 MG TABLET PO PRN (20:00)
[2017-11-07] MEDS ORDERED: SODIUM CHLORIDE FLUSH 0.9% 10 ML SYRINGE IVP PRN (20:00)
--- NOTE | 2017-11-07 20:48 | HISTORY & PHYSICAL EXAMINATION ---
Chief Complaint - Chief Complaint Chief Complaint: confusion and disorientation History of Present Illness - Admitted From Admitted From:: ER/Home - History Obtained From Records Reviewed: [facility] and Cent[facility] History obtained from: Dr. Solano Exam Limitations: patient can't reember - History of Present Illness HPI Comment/Other: In reviewing his centricity chart, he has vague affect and is a poor historian with previous episodes of confusion, falls, leg pain, leg weakness and back pain. 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 This has been an ongoing prob since at least 2005 notes. This time, his came home today and he was watching TV. He didn't know what was going on, couldn't figure out how to use the remote, couldn't remember the events of the day. He tells me he has a headache, diffuse, and his eyes hurt, but they always hurt. No new blurrd vision but he can't focus. He feels his dizziness is the same as always. Couldn't remember if he ate or what he ate. No focal deficits. He denied fever, chills, sore throat. No neck stiffness. No one else is ill in his house. His colitis is stable. Seen in the ER and hypertensive, no focal exam findings x nystagmus. CT of head with old stroke but no new acute stroke. History - Past Medical History Cardiovascular: reports: Hypertension Respiratory: reports: Sleep apnea (witnessed during scopes with low sats) Neuro: reports: Peripheral neuropathy, Other (weak legs and loss of balance, carpal tunnel syndrome On NCV 09/18/07) Endocrine/Autoimmune: reports: Type 2 diabetes GI: reports: GERD, Colon polyps, Ulcerative colitis : reports: Benign prostate hypertrophy (with LUTS), Nocturia, Kidney stones Psych: reports: Depression (always a "depressant" since his teens and it comes and goes. Bad lately bc of age and lack of energy and hurts so much all over. ) , Anxiety Musculoskeletal: reports: Osteoarthritis Derm: reports: None MRSA Hx?: No Other Past Medical History: Low testosterone level. low Vitamin D - Past Surgical History General: reports: Colonoscopy (03/06/07, 08/07/08, 12/09/09, 07/31/14, 12/03/15 [facility] with Lanre De La Rosa MD, right and left colon bx w increased cellularity in lamina propria. Few crypt abscess seen.) Ortho: reports: Other (right shoulder and left ankle surgery) - Family & Social History Family History: Other family: Mental Illness Family History Comment/Other: Biological mother in her 70's unknown cause. Biological dad in his 70's, unknown cause. 2 siblings. neg for CRC Living arrangement: At home Living Situation: With spouse/s.o. Social History Notes: Works as [employer]. Economy down so hard finances right now. 2 adopted sons and one is schizophrenic. to first for 56 years.Hx of alcohol use in his teens and 20's where he drank a lot of whiskey but then he just petered out. Rare tobacco use in teens and then stopped. No recreational substance abuse. Born and raised in [place]. Came to the [place] to work 24 years ago but didn't move here until 14 years ago. Getting harder and harder to work bc of body and fatigue. worried. - Substance History Use: Uses substance without health or social issues: NONE Abuse: Recurrent use of substance despite neg consequences: NONE Dependence: Experiences withdrawal or developed tolerances: NONE - POLST Patient has POLST: No POLST Status: Limited Interventions (he's willing to have surgeries, abx, or blood transfusions but if has arrhythmia with or severe stoke with plegia , let him go) Meds/Allgy - Home Medications Home Medications: Ambulatory Orders Medication Instructions Recorded Confirmed Losartan Potassium [Cozaar] 100 mg PO DAILY 09/03/17 09/03/17 Metoprolol Tartrate [Lopressor] 50 mg PO BID 09/03/17 11/07/17 Sertraline HCl [Zoloft] 100 mg PO DAILY 09/03/17 11/07/17 Tamsulosin [Flomax] 0.4 mg PO QPM 09/03/17 11/07/17 hydroCHLOROthiazide [Hydrodiuril] 25 mg PO DAILY 09/03/17 11/07/17 metFORMIN [Glucophage] 1,000 mg PO BIDWM 09/03/17 11/07/17 Acetaminophen 500 mg PO Q6HR PRN #30 tablet 09/04/17 11/07/17 - Allergies Allergies/Adverse Reactions: Allergies Allergy/AdvReac Type Severity Reaction Status Date / Time oxycodone AdvReac Mild Hallucinati Verified 09/03/17 07:57 ons Review of Systems - Constitutional Constitutional: reports: Fatigue, Malaise, Weakness. denies: Fever, Chills, Poor appetite, Diaphoresis, Night sweats - Eyes Eyes: reports: Pain, Irritation, Blurred vision, Vision loss. denies: Amaurosis , Spots in vision, Field loss, Dipolpia - Ears, Nose & Throat Ears, Nose & Throat: reports: Hearing loss, Tinnitus, Vertigo, Dental decay. denies: Ear pain, Hearing aids, Nasal pain, Nasal discharge, Nasal obstruction, Nasal congestion, Postnasal drainage, Sore throat - Cardiovascular Cariovascular: reports: Palpitations (and shortness of breath resulted in Arias protocol stress test 03/02 and negative for ischemia but had exagerated hypertensive response to 200 systolic, ventricular bigeminy.), Lightheadedness, Syncope - Respiratory Respiratory: reports: Snoring, Apnea. denies: Cough, Sputum production, Wheezing, Stridor, Pleuritic pain - Gastrointestinal Gastrointestinal: reports: Abdominal pain (sometmes w a bad cramp), Diarrhea ( rarely and occasionally), Bloody stools (rarely and occasionally), Reflux/ heartburn. denies: Nausea, Vomiting, Coffee grounds emesis, Bloating, Poor appetite - Genitourinary Genitourinary: reports: Frequency, Urgency, Incontinence, Nocturia (3-5 times a night). denies: Flank pain - Musculoskeletal Musculoskeletal: reports: Back pain, Muscle aches, Stiffness, Limited range of motion - Integumentary Integumentary: reports: Rash (on scalp, has tried everything and it doesn'e help , red, scaling, flaking and sometimes in his garcia) - Neurological Neurological: reports: Dizziness (gets spells where he is going to pass out or vomit, worse with rolling over in bed. worsening w weak legs and sometimes when he bends over he keeps on going and falls bc of lack of balance since 03/2017), Memory problems (at times has been confused in PCP office, not remembering visits, calls. will be noncompliatn bc he can't remember his meds or start new Rx when asked.) - Psychiatric Psychiatric: reports: Anxiety (overewhelmed and can't sleep at times.) - Endocrine Endocrine: denies: Polyuria, Polydypsia, Polyphagia - Hematologic/Lymphatic Hematologic/Lymphatic: denies: Anemia, Bruising Exam - Vital Signs Reviewed Vital Signs: Yes - Physical Exam General Appearance: positive: No acute distress, Alert, Other (watching TV and fumbling w the remote, moderately overweight elderly white male with frowning fascies ( I always frown and look worried).) Eyes Bilateral: positive: PERRL ENT: positive: Pharynx nml, Other (most of his teetch are gone and no dentures) Neck: positive: No JVD, Other. negative: Stiff neck, Carotid bruit Respiratory: positive: Chest non-tender. negative: Wheezes, Rales, Rhonchi Cardiovascular: positive: Regular rate & rhythm. negative: Systolic murmur, Gallop/S4, Friction rub Peripheral Pulses: positive: 1+ Abdomen: positive: Non-tender, No organomegaly, Nml bowel sounds, No distention , Other (obese) Skin: positive: Warm, Dry, Skin rash (on scalp:flat red patches in hair line and scalp, nonflaking, nonblanching. some in garcia and nasolabial fold.) Extremities: positive: Non-tender, Full ROM, Nml appearance, No pedal edema, Other (under nails he has dirt) Neurologic/Psychiatric: positive: Oriented x3, Sensory loss (hands and feet numb ), Depressed mood/affect, Other (very vague historian which leads me to suspect memory is affected somewhat or apathy from depression). negative: CN's nml (2- 12) (he's deaf, no facial asymmetry, speech nml), Motor nml (finger to nose off , does have lateral and medial gaze nystagmus. plantar and dorseflexion intact) , Weakness Reflexes: Bicep (R): 1+, Bicep (L): 1+, Knee (R): 1+ (really minimal response), Knee (L): 1+ (minimal response), Ankle (R): 0, Ankle (L): 0 Conclusion/Plan - Problem List (1) Stroke-like symptoms Conclusion/Plan: acute confusion, nystagmus, superimposed on a hx of gait ataxia, falls, memory loss confusion has appeared and disappeared in the past as well. CT of head with old infarct. He does have increased risk from his uncontrolled DM, HTN Plan: OBV stay Atorvastatin tonight ASA tonight MRI head in am Angiogram head and neck in am ECHO in am. (2) Type 2 diabetes mellitus, uncontrolled, with neuropathy Conclusion/Plan: he's on metformin at home not adequate control for his risks. but his lack of motivation and vague affect would make it difficult to rx insulin with eulalia he would take it or he that he wouldn't accidentally He has also proven to lack ability to get himself to appts in that many missed ones in PCP office and he's has not followed thru to sleep study referral since 2009. Plan: amaryl to start check A1c. (3) Essential hypertension Conclusion/Plan: hypertensive in ER. he's either uncontrolled from noncomplaince or a side effect of possbile CVA. already on MAK. continue same. Aim for goal <130/80. Add Norvasc if necessary. 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 would benefit from MRI spine in the outpt setting - Lab Results Lab results reviewed: Yes Fish Bones: 11/07/17 18:16 11/07/17 18:16 - Diagnostic Imaging Results Diagnostic Imaging Results: positive: Final report reviewed Core Measures - Anticipated LOS I expect patient to be DC'd or transferred within 96 hours.: Yes - DVT/VTE - Prophylaxis VTE/DVT Device ordered at admit?: Yes
[2017-11-07] MEDS ORDERED: TAMSULOSIN 0.4 MG CAPSULE PO SCH (21:00)
[2017-11-07] MEDS ORDERED: ATORVASTATIN 40 MG TABLET PO SCH (21:00)
[2017-11-07] MEDS: METOPROLOL TARTRATE 50 MG TABLET PO SCH (21:11)
[2017-11-07] MEDS: ASPIRIN 325 MG TABLET PO SCH (21:11)
[2017-11-07 22:43] LABS: HB2 TOTAL 17.7 g/dL; HEMOGLOBIN A1C 1.45 g/dL; HEMOGLOBIN A1C % 9.6 % (4.6-6.2)
[2017-11-07] MEDS: SODIUM CHLORIDE FLUSH 0.9% 10 ML SYRINGE IVP SCH (23:53)
[2017-11-07] MEDS: GLIMEPIRIDE 2 MG TABLET PO SCH (23:53)
[2017-11-08] MEDS ORDERED: GADOBUTROL 10 MMOL/10 ML VIAL ONE (07:40)
[2017-11-08] MEDS: INSULIN ASPART 300 UNIT/3 ML PEN SUBQ SCH ×2 (07:53→12:37)
[2017-11-08] MEDS ORDERED: SERTRALINE 50 MG TABLET PO SCH (09:00)
[2017-11-08] MEDS ORDERED: POLYETHYLENE GLYCOL 3350 17 GM PACKET PO SCH (09:00)
[2017-11-08] MEDS: METOPROLOL TARTRATE 50 MG TABLET PO SCH (09:28)
[2017-11-08] MEDS: GLIMEPIRIDE 2 MG TABLET PO SCH (09:28)
[2017-11-08] MEDS: ASPIRIN 325 MG TABLET PO SCH (09:28)
[2017-11-08] MEDS: SODIUM CHLORIDE FLUSH 0.9% 10 ML SYRINGE IVP SCH (09:33)
--- NOTE | 2017-11-08 15:27 | Discharge Plan ---
Discharge Plan Disposition: 01 Home, Self Care Condition: Poor Diet: Diabetic Activity Restrictions: Activity as Tolerated Shower Restrictions: No (fall precaution) Weight Bearing: Full Weight Instruction Topics: Diabetes Healthy Meals, Diabetes Carbs Fats Protein, Diabetes Keep Feet Healthy, Blood Sugar Manage Exercise, Diabetes Type 2 Oral Meds, Diabetes Type 2 Coping, Diabetes Manager Books Complications Additional Instructions or Follow Up instructions: You may follow up your PCP in one week, may follow up neurologist as out-pt. We discussed with you for loss of your weight, exercise, reduce of your sugar input. Should your symptoms return or worsen, you may present ER or call 911 for help. [facility] Care: [facility] - Diabetes Ed No Smoking: If you smoke, Please STOP! Call for help. Follow-up with: Anmol Muhammad MD [Primary Care Provider] -
--- NOTE | 2017-11-08 15:38 | DISCHARGE SUMMARY ---
Discharge Summary Discharge Date: 11/08/17 Discharging Provider: POPE Primary Care Provider: Dr. Muhammad Condition at Discharge: Poor Discharge Disposition: 01 Home, Self Care Discharge Facility Name: home - DIAGNOSES Admission Diagnoses: (1) Stroke-like symptoms (2) Type 2 diabetes mellitus, uncontrolled, with neuropathy (3) Essential hypertension (4) Seborrhea capitis in adult (5) Leg weakness, bilateral Discharge Diagnoses with Status of Each Condition: (1) Stroke-like symptoms pt report when he bend anteriorly, he lost of her balance. it does not suggest pt has TIA. pt denies any focal neurological deficits. pt walked normally when I assessed pt. Radiologist called me pt did not have acute finding in his MRI and MRA of head. Pt refused and became phobia when scheduled to have MRA of neck. ECHO is unremarkable (2) Type 2 diabetes mellitus, uncontrolled, with neuropathy pt can not afford his insulin and asked alterative way to control his sugar level. I discussed with pt about his loss of weight, exercise, control his dietary sugar. Provide lots of DM2 education for pt. referral to dietitian and [facility] diabetes educations. continue to be managed by PCP (3) Essential hypertension stable, continue to be managed by PCP (4) Seborrhea capitis in adult stable. (5) Leg weakness, bilateral stable, provide education - HPI History of Present Illness: refer from DR. Borges's HPI for pt as the following: In reviewing his centricity chart, he has vague affect and is a poor historian with previous episodes of confusion, falls, leg pain, leg weakness and back pain. He is noncompliant with his meds at times and will forget what he is on or when to hand picker new Rx. This has been an ongoing prob since at least 2006 notes. This time, his came home today and he was watching TV. He didn't know what was going on, couldn't figure out how to use the remote, couldn't remember the events of the day. He tells me he has a headache, diffuse, and his eyes hurt, but they always hurt. No new blurrd vision but he can't focus. He feels his dizziness is the same as always. Couldn't remember if he ate or what he ate. No focal deficits. He denied fever, chills, sore throat. No neck stiffness. No one else is ill in his house. His colitis is stable. Seen in the ER and hypertensive, no focal exam findings x nystagmus. CT of head with old stroke but no new acute stroke. - ALLERGIES Allergies/Adverse Reactions: Allergies Allergy/AdvReac Type Severity Reaction Status Date / Time oxycodone AdvReac Mild Hallucinati Verified 09/03/17 07:57 ons - MEDICATIONS Home Medications: Ambulatory Orders Medication Instructions Recorded Confirmed Losartan Potassium [Cozaar] 100 mg PO DAILY 09/03/17 11/08/17 Metoprolol Tartrate [Lopressor] 50 mg PO BID 09/03/17 11/08/17 Sertraline HCl [Zoloft] 100 mg PO DAILY 09/03/17 11/08/17 Tamsulosin [Flomax] 0.4 mg PO QPM 09/03/17 11/08/17 hydroCHLOROthiazide [Hydrodiuril] 25 mg PO DAILY 09/03/17 11/08/17 metFORMIN [Glucophage] 1,000 mg PO BIDWM 09/03/17 11/08/17 Acetaminophen 500 mg PO Q6HR PRN #30 tablet 09/04/17 11/08/17 Balsalazide Disodium 1,500 mg PO DAILY 11/08/17 11/08/17 Cholecalciferol (Vitamin D3) 50,000 unit PO .QWEDSUN 11/08/17 11/08/17 [Vitamin D3] - PHYSICAL EXAM AT DISCHARGE General Appearance: positive: No acute distress, Alert. negative: Lethargic Eyes Bilateral: positive: Normal inspection, PERRL, No lid inflammation, Conjunctivae nml ENT: positive: ENT inspection nml, Pharynx nml, No signs of dehydration. negative: Purulent nasal drainage, Pharyngeal erythema, Oral lesions, Dry mucous membranes Neck: positive: Nml inspection, Thyroid nml, No JVD, Trachea midline. negative : Thyromegaly, Lymphadenopathy (R), Lymphadenopathy (L), Stiff neck, Carotid bruit, Swelling/bruising, Tracheal deviation Respiratory: positive: Chest non-tender, No respiratory distress, Breath sounds nml. negative: Wheezes, Rales, Rhonchi Cardiovascular: positive: Regular rate & rhythm, No murmur, No gallop. negative : Irregularly irregular, Extrasystoles, Tachycardia, Bradycardia, JVD present, Systolic murmur, Diastolic murmur Peripheral Pulses: positive: 2+ Abdomen: positive: Non-tender, No organomegaly, Nml bowel sounds, No distention. negative: Tenderness, Guarding, Rebound Back: positive: Nml inspection. negative: CVA tenderness (R), CVA tenderness (L ) Skin: positive: Color nml, No rash, Warm, Dry. negative: Cyanosis, Diaphoresis , Pallor Extremities: positive: Non-tender, Full ROM, Nml appearance. negative: Calf tenderness, Joint swelling, Malik's sign/cords Neurologic/Psychiatric: positive: Oriented x3, Motor nml, Sensation nml, Mood/ affect nml. negative: Weakness, Sensory loss, Facial droop, Slurred/abnml speech, Depressed mood/affect - LABS Result Diagrams: 11/07/17 18:16 11/07/17 18:16 - FOLLOW UP Follow Up: You may follow up your PCP in one week, may follow up neurologist as out-pt if you continue symptomatic. We discussed with you for loss of your weight, exercise, reduce of your sugar input. Should your symptoms return or worsen, you may present ER or call 911 for help. - TIME SPENT Time Spent in Discharge (Minutes): 45
[2017-11-08 16:36] VITALS: BP 137/74
--- NOTE | 2017-11-08 23:42 | MRI Report ---
Procedure Date: 11/08/2017 Accession Number: [id number] / [id number] Procedure: MRI - Brain W/O CPT Code: FULL RESULT: EXAMS: MRI BRAIN WITHOUT CONTRAST. MRA BRAIN WITHOUT CONTRAST. EXAM DATE: 11/08/2017 12:15 PM. CLINICAL HISTORY: 72-year-old male. Acute confusion and memory loss COMPARISON: CT head 11/07/2017. TECHNIQUE: MRI: Multiplanar, multisequence T1-weighted and fluid-sensitive MRI sequences of the brain were performed. Sequences optimized for routine evaluation. Other: None. Post-processing: None. IV Contrast: None. MRA: Multiplanar, multisequence T1-weighted and fluid-sensitive MRA sequences of the brain were performed. Other: None. Post-processing: Multiplanar 3D MIP reconstructions. IV Contrast: None. FINDINGS: The study is somewhat limited by patient motion. MRI: Brain Volume: Moderate diffuse cerebral volume loss with ex vacuo dilatation of the ventricles and sulci, likely slightly advanced for age. Parenchyma/Dura: Chronic lacunar infarct right basal ganglia. No parenchymal foci susceptibility artifact. No mass, acute infarct or hemorrhage. Extensive, semi-confluent T2/FLAIR hyperintense periventricular, deep, and subcortical white matter lesions within cerebral hemispheres bilaterally and within the reji centrally. Ventricles/Cisterns: No hydrocephalus. No abnormal extra-axial fluid collection or hemorrhage. Orbits: Symmetric and unremarkable. Sella Turcica: The pituitary gland, cavernous sinuses, suprasellar cistern and optic chiasm are unremarkable. IAC: Symmetric and unremarkable. Vasculature: Normal signal flow void is seen in the major arterial structures at the skull base. Sinuses: Moderate mucosal thickening right maxillary sinus. The remaining paranasal sinuses are clear. Bones: No focal pathologic appearing marrow signal changes. Other: None. MRA: RIGHT Internal Carotid (ICA): No aneurysm, stenosis or anomaly. Middle Cerebral (MCA): No aneurysm, stenosis or anomaly. Anterior Cerebral (MARGARITA): No aneurysm, stenosis or anomaly. Posterior Cerebral (LABOR EXPEDITER): No aneurysm, stenosis or anomaly. Posterior Communicating (P-COM): No aneurysm, stenosis or anomaly. Vertebral: No aneurysm, stenosis or anomaly in the visualized upper vertebral artery. LEFT Internal Carotid (ICA): No aneurysm, stenosis or anomaly. Middle Cerebral (MCA): No aneurysm, stenosis or anomaly. Anterior Cerebral (MARGARITA): No aneurysm, stenosis or anomaly. Posterior Cerebral (LABOR EXPEDITER): No aneurysm, stenosis or anomaly. Posterior Communicating (P-COM): No aneurysm, stenosis or anomaly. Vertebral: The left vertebral artery is not visualized except for the most distal V4 segment, which is nonspecific, may represent age indeterminate, including both chronic and acute, occlusion/dissection versus a diminutive artery and/or slow flow. MIDLINE Anterior Communicating (A-COM): No aneurysm, stenosis or anomaly. Basilar artery: No aneurysm, stenosis or anomaly. Other: None. IMPRESSION: 1. No MRI evidence of acute intracranial abnormality. Specifically, no evidence of acute or subacute infarct, acute intracranial hemorrhage, mass, midline shift, or hydrocephalus. 2. Moderate diffuse cerebral volume loss with ex vacuo dilatation of the ventricles and sulci, likely slightly advanced for age. 3. Chronic lacunar infarct right basal ganglia. 4. Extensive, semi-confluent T2/FLAIR hyperintense periventricular, deep, and subcortical white matter lesions within cerebral hemispheres bilaterally and within the reji centrally. While nonspecific, this is favored to represent sequela of chronic microangiopathy. 5. On the MRA, the left vertebral artery is not visualized except for the most distal V4 segment, which is nonspecific, may represent age indeterminate, including both chronic and acute, occlusion/dissection versus a diminutive artery and/or slow flow. As clinically indicated, further evaluated with ultrasound or CTA of the arteries of the neck may be of benefit. 6. Otherwise no MRA evidence of hemodynamically significant stenosis, dissection, occlusion, aneurysm, or vascular malformation within the intracranial arteries. The findings were discussed with Dr. Orozco at 1:54 PM on 11/08/2017. RADIA
== END 2017-11-08 16:05 | disposition home or self-care (01) ==
LOC: ED 17:28 → MS2 20:00
PROVIDERS: ADMIT Specialist; ATTEND Nurse Practitioner Gerontology
DX: R26.89 Other abnormalities of gait and mobility (principal); E11.40 Type 2 diabetes mellitus with diabetic neuropathy, unspecified; E11.65 Type 2 diabetes mellitus with hyperglycemia; I10 Essential (primary) hypertension; L21.0 Seborrhea capitis; R53.1 Weakness; F32.9 Major depressive disorder, single episode, unspecified; F41.9 Anxiety disorder, unspecified; E66.3 Overweight; Z68.33 Body mass index [BMI] 33.0-33.9, adult; R29.703 NIHSS score 3; R41.0 Disorientation, unspecified; H55.00 Unspecified nystagmus; R26.0 Ataxic gait; R41.3 Other amnesia; G47.30 Sleep apnea, unspecified; R35.1 Nocturia; M19.90 Unspecified osteoarthritis, unspecified site; N40.1 Benign prostatic hyperplasia with lower urinary tract symptoms; T38.3X6A Underdosing of insulin and oral hypoglycemic [antidiabetic] drugs, initial encounter; Z66 Do not resuscitate; Z91.19 Patient's noncompliance with other medical treatment and regimen; Z79.84 Long term (current) use of oral hypoglycemic drugs; Z86.73 Personal history of transient ischemic attack (TIA), and cerebral infarction without residual deficits; Z91.81 History of falling; Z87.891 Personal history of nicotine dependence
CPT/HCPCS: 36415; 70450; 70544; 70551; 80053; 83036; 83690; 85025; 93306; 99284; A9270; G0378; G0480; 80320

== ENCOUNTER 2018-02-05 08:00 | Outpatient (CLI) | payer MEDICARE, BC ==
[2018-02-05 19:04] LABS: HB2 TOTAL 17.3 g/dL; HEMOGLOBIN A1C 0.94 g/dL; HEMOGLOBIN A1C % 7.1 % (4.6-6.2)
[2018-02-05 19:32] LABS: BUN - BLOOD UREA NITROGEN 19 mg/dL (6-20); CALCIUM 9.4 mg/dL (8.5-10.3); CARBON DIOXIDE - CO2 26 mmol/L (21-32); CHLORIDE 105 mmol/L (101-111); CHOL/HDL RATIO 3.9 (<5.0); CHOLESTEROL 163 mg/dL; CREATININE 0.6 mg/dL (0.6-1.2); GFR - MDRD 132 (>89); GLUCOSE 196 mg/dL (70-100); HDL CHOLESTEROL 42 mg/dL; LDL CHOLESTEROL,CALCULATED 104 mg/dL; LDL/HDL RATIO 2.5 (<3.6); SODIUM 139 mmol/L (135-145); VLDL CHOLESTEROL 17 mg/dL
== END 2018-02-05 08:01 | disposition home or self-care (01) ==
LOC: LAB.WCP 08:00
PROVIDERS: ATTEND Family Medicine
DX: E11.9 Type 2 diabetes mellitus without complications (principal); I10 Essential (primary) hypertension; E55.9 Vitamin D deficiency, unspecified
CPT/HCPCS: 36415; 80048; 80061; 82043; 82306; 83036; 83721; 84443

== ENCOUNTER 2018-02-06 15:38 | Outpatient (CLI) | payer MEDICARE, BC ==
--- NOTE | 2018-02-07 11:06 | XRAY Report ---
Reason: HIP JOINT PAIN RIGHT Procedure Date: 02/06/2018 Accession Number: [id number] / [id number] Procedure: XR - Hip w/Pelvis 2-3V RT CPT Code: FULL RESULT: EXAM: RIGHT HIP AND PELVIS RADIOGRAPHY EXAM DATE: 02/06/2018 04:06 PM. HISTORY: HIP JOINT PAIN RIGHT. COMPARISONS: None. TECHNIQUE: 1 view of the pelvis and 1 view of the hip. Images filed under lumbar spine. FINDINGS: Bones: Thickening of the iliopectineal lines, raising possibility of Paget's disease. No fracture or bone lesion. Joints: Mild bilateral hip joint space narrowing with marginal lipping. Mild degenerative changes of the SI joints and pubic symphysis. More prominent degenerative changes in the lower lumbar spine, right worse than left. Soft Tissues: Unremarkable. IMPRESSION: 1. Mild lateral degenerative joint disease of the hips. 2. Possible Paget's disease. 3. Other degenerative changes as noted. RADIA
--- NOTE | 2018-02-07 14:41 | XRAY Report ---
Reason: LUMBAR RADICULOPATHY, HIP JOINT PAIN, RIGHT Procedure Date: 02/06/2018 Accession Number: [id number] / [id number] Procedure: XR - Lumbar Spine 2 View CPT Code: FULL RESULT: EXAM: LUMBOSACRAL SPINE RADIOGRAPHY EXAM DATE: 02/06/2018 04:06 PM. CLINICAL HISTORY: Lumbar radiculopathy. Hip joint pain, right. COMPARISONS: 05/03/2017. TECHNIQUE: 3 views. FINDINGS: Alignment: Stable dextroscoliosis. No spondylolisthesis. Bones: Five [id number] lumbar vertebral bodies are present. No fractures or bone lesions. Disks: Advanced multilevel degenerative disk disease and endplate spurring, worst along inner curve. Facets: Lower lumbar facet arthropathy. Sacroiliac Joints: Unremarkable. Soft Tissues: Normal. The visualized bowel gas pattern is normal. IMPRESSION: Persistent dextroscoliosis with multilevel degenerative disk disease. RADIA
== END 2018-02-06 15:39 | disposition home or self-care (01) ==
LOC: DI 15:38
PROVIDERS: ATTEND Family Medicine
DX: M51.37 Other intervertebral disc degeneration, lumbosacral region (principal); M41.87 Other forms of scoliosis, lumbosacral region; M16.0 Bilateral primary osteoarthritis of hip
CPT/HCPCS: 72100

== ENCOUNTER 2018-03-31 16:12 | Emergency (ER) | payer MEDICARE, BC ==
[2018-03-31 17:09] LABS: BASOPHILS # (AUTO) 0.1 10^3/uL (0.0-0.1); BASOPHILS % (AUTO) 0.5 %; EOSINOPHILS # (AUTO) 0.1 10^3/uL (0.0-0.7); HGB - HEMOGLOBIN 15.2 g/dL (14.0-18.0); LYMPHOCYTES # (AUTO) 1.5 10^3/uL (1.5-3.5); MEAN CORPUSCULAR HEMOGLOBIN 29.9 pg (27.0-31.0); MEAN CORPUSCULAR HGB CONC 34.3 g/dL (32.0-36.0); MEAN CORPUSCULAR VOLUME 87.2 fL (80.0-94.0); MEAN PLATELET VOLUME 7.8 fL (7.4-11.4); MONOCYTES # (AUTO) 1.2 10^3/uL (0.0-1.0); MONOCYTES % (AUTO) 11.8 %; NEUTROPHILS # (AUTO) 7.4 10^3/uL (1.5-6.6); NEUTROPHILS % (AUTO) 71.7 %; PLT - PLATELET COUNT 294 10^3/uL (130-450); RED BLOOD COUNT 5.06 10^6/uL (4.70-6.10); RED CELL DISTRIBUTION WIDTH 12.8 % (12.0-15.0); WHITE BLOOD COUNT 10.3 x10^3/uL (4.8-10.8)
[2018-03-31 17:25] LABS: BILIRUBIN,TOTAL 0.6 mg/dL (0.2-1.0); CREATININE 1.4 mg/dL (0.6-1.2); TOTAL PROTEIN 8.1 g/dL (6.7-8.2)
[2018-03-31 17:52] LABS: BILIRUBIN,URINE NEGATIVE (NEGATIVE); GLUCOSE, URINE (UA) 500 mg/dL (NEGATIVE); KETONES,URINE (UA) NEGATIVE (NEGATIVE); LEUKOCYTE ESTERASE, URINE NEGATIVE (NEGATIVE); NITRITE,URINE NEGATIVE (NEGATIVE); OCCULT BLOOD,URINE SMALL (NEGATIVE); PH,URINE 5.5 PH (5.0-7.5); PROTEIN,URINE NEGATIVE (NEGATIVE); UROBILINOGEN,URINE 0.2 (NORMAL) E.U./dL (NORMAL)
[2018-03-31 17:53] LABS: CLARITY,URINE CLEAR (CLEAR)
[2018-03-31] MEDS ORDERED: SODIUM CHLORIDE 0.9% 1,000 ML IV ONE (17:57)
--- NOTE | 2018-03-31 17:59 | ED Physician Documentation ---
PD HPI ABD PAIN - Stated complaint Stated Complaint: STOMACH PX/VOMITING - Chief complaint Chief Complaint: Abd Pain - History obtained from History obtained from: Patient, Family - History of Present Illness Timing - onset: Other (72-year-old gentleman with history of hypertension who had strokelike symptoms in October and MRI was done at the time and reviewed. He presents tonight with multiple complaints. 8 days ago he had an episode of altered mental status while driving. He was taken to [facility] and workup was negative. Since then he has had lower abdominal pain with severe constipation and decreased flatus, left ear ringing and pain in the left heel.) Review of Systems Ten Systems: 10 systems reviewed and negative Constitutional: denies: Fever, Chills Throat: denies: Dental pain / toothache, Sore throat Cardiac: denies: Chest pain / pressure, Palpitations Respiratory: denies: Dyspnea, Cough PD PAST MEDICAL HISTORY - Past Medical History Cardiovascular: Hypertension Respiratory: Sleep apnea (witnessed during scopes with low sats) Neuro: Peripheral neuropathy, Other (weak legs and loss of balance, carpal tunnel syndrome On NCV 09/18/07) Endocrine/Autoimmune: Type 2 diabetes GI: GERD, Colon polyps, Ulcerative colitis : Benign prostate hypertrophy (with LUTS), Nocturia, Kidney stones Psych: Depression (always a "depressant" since his teens and it comes and goes. Bad lately bc of age and lack of energy and hurts so much all over. ), Anxiety Musculoskeletal: Osteoarthritis Derm: None - Past Surgical History Past Surgical History: Yes General: Colonoscopy (03/06/07, 08/07/08, 12/09/09, 07/31/14, 12/03/15 [facility] with Lanre De La Rosa MD, right and left colon bx w increased cellularity in lamina propria. Few crypt abscess seen.) Ortho: Other (right shoulder and left ankle surgery) - Present Medications Home Medications: Ambulatory Orders Medication Instructions Recorded Confirmed RX: Losartan Potassium [Cozaar] 100 mg PO DAILY 09/03/17 11/08/17 RX: Metoprolol Tartrate [Lopressor] 50 mg PO BID 09/03/17 11/08/17 RX: Sertraline HCl [Zoloft] 100 mg PO DAILY 09/03/17 11/08/17 RX: Tamsulosin [Flomax] 0.4 mg PO QPM 09/03/17 11/08/17 RX: hydroCHLOROthiazide 25 mg PO DAILY 09/03/17 11/08/17 [Hydrodiuril] RX: metFORMIN [Glucophage] 1,000 mg PO BIDWM 09/03/17 11/08/17 RX: Acetaminophen 500 mg PO Q6HR PRN #30 tablet 09/04/17 11/08/17 RX: Balsalazide Disodium 1,500 mg PO DAILY 11/08/17 11/08/17 RX: Cholecalciferol (Vitamin D3) 50,000 unit PO .QWEDSUN 11/08/17 11/08/17 [Vitamin D3] Hydrocodone/Acetaminophen 1 - 2 each PO Q6H PRN #14 tablet 03/31/18 [Hydrocodon-Acetaminophen 5-325] RX: Amoxicillin 500 mg PO TID #30 capsule 03/31/18 - Allergies Allergies/Adverse Reactions: Allergies Allergy/AdvReac Type Severity Reaction Status Date / Time oxycodone AdvReac Mild Hallucinati Verified 09/03/17 07:57 ons - Social History Does the pt smoke?: No Smoking Status: Unknown if ever smoked Does the pt drink ETOH?: Yes Does the pt have substance abuse?: No - Immunizations Immunizations are current?: Yes - POLST Patient has POLST: No POLST Status: Limited Interventions (he's willing to have surgeries, abx, or blood transfusions but if has arrhythmia with or severe stoke with plegia, let him go) PD ED PE NORMAL - Vitals Vital signs reviewed: Yes - General General: Alert and oriented X 3, No acute distress - HEENT HEENT: PERRL, EOMI - Neck Neck: Supple, no meningeal sign, No bony TTP - Cardiac Cardiac: RRR, No murmur - Respiratory Respiratory: No respiratory distress, Clear bilaterally - Abdomen Abdomen: Other (Diminished and high-pitched bowel tones without significant tenderness.) - Back Back: No CVA TTP, No spinal TTP - Derm Derm: Normal color, Warm and dry, No rash - Extremities Extremities: No edema, No calf tenderness / cord, Other (Tenderness just to the left plantar fascia consistent with plantar fasciitis) - Neuro Neuro: Alert and oriented X 3, Normal speech, Other (NIHSS zero) Eye Opening: Spontaneous Motor: Obeys Commands Verbal: Oriented GCS Score: 15 - Psych Psych: Normal mood, Normal affect Results - Vitals Vitals: Vital Signs - 24 hr 03/31/18 03/31/18 03/31/18 16:25 18:16 20:17 Temperature 36.0 C L 36.6 C Heart Rate 80 82 78 Respiratory 16 18 15 Rate Blood Pressure 148/86 H 159/90 H 193/86 H O2 Saturation 99 99 95 03/31/18 21:31 Temperature Heart Rate 91 Respiratory 16 Rate Blood Pressure 170/102 H O2 Saturation 98 Oxygen O2 Source Room air - Labs Labs: Laboratory Tests 03/31/18 03/31/18 03/31/18 16:56 16:56 17:00 WBC 10.3 RBC 5.06 Hgb 15.2 Hct 44.1 MCV 87.2 MCH 29.9 MCHC 34.3 RDW 12.8 Plt Count 294 MPV 7.8 Neut # (Auto) 7.4 H Lymph # (Auto) 1.5 Mckean # (Auto) 1.2 H Eos # (Auto) 0.1 Baso # (Auto) 0.1 Absolute Nucleated RBC 0.02 Nucleated RBC % 0.2 Sodium 133 L Potassium 4.3 Chloride 95 L Carbon Dioxide 28 Anion Gap 10.0 BUN 23 H Creatinine 1.4 H Estimated GFR (MDRD) 50 L Glucose 192 H Calcium 9.0 Total Bilirubin 0.6 AST 13 ALT 10 Alkaline Phosphatase 68 Total Protein 8.1 Albumin 4.0 Globulin 4.1 Albumin/Globulin Ratio 1.0 Lipase 23 Urine Color YELLOW Urine Clarity CLEAR Urine pH 5.5 Ur Specific [place] 1.025 Urine Protein NEGATIVE Urine Glucose (UA) 500 H Urine Ketones NEGATIVE Urine Occult Blood SMALL H Urine Nitrite NEGATIVE Urine Bilirubin NEGATIVE Urine Urobilinogen 0.2 (NORMAL) Ur Leukocyte Esterase NEGATIVE Urine RBC 0-5 Urine WBC 0-3 Ur Squamous Epith Cells RARE Squamous Urine Crystals 26-50 Uric Acid Urine Bacteria None Seen Ur Microscopic Review INDICATED Urine Culture Comments NOT INDICATED PD MEDICAL DECISION MAKING - ED course ED course: 72-year-old gentleman presents with multiple complaints which I am not sure if they are connected or not initially. He has left ear pain and ringing with odd sounds there. Initially the canal was clogged with cerumen but after was flushed he had a clear otitis media there. Secondly he has been having bouts of confusion and what not lately but it is not a current problem I recommended neurology follow-up. His stroke scale and CT here are normal. He has left pelvic pain and found to have a large left ureteral stone on CT, given the size will need to follow-up with urology for definitive removal. Finally he seems to have plantar fasciitis on the left and advised on conservative care for that. Departure - Departure Disposition: 01 Home, Self Care Clinical Impression: Renal colic on left side, Stroke-like symptoms, Plantar fasciitis of left foot, Left otitis media Condition: Good Record reviewed to determine appropriate education?: Yes Instructions: Plantar Fasciitis Tx, ED Plantar Fasciitis, ED Stone Renal W Col ic Prescriptions: RX: Amoxicillin 500 mg PO TID #30 capsule Hydrocodone/Acetaminophen [Hydrocodon-Acetaminophen 5-325] 1 - 2 each PO Q6H PRN #14 tablet PRN Reason: pain Comments: FOR THE PLANTAR FASCIITIS DO STRETCHES SHOWN FOR THE EAR INFECTION TAKE ANTIBIOTICS UNTIL GONE 10 DAYS TOTAL. FOR THE KIDNEY STONE, IT IS QUITE LARGE, FOLLOWUP WITH UROLOGY, I RECOMMEND DR ISABEL THURSTON IN [facility], THE PHONE NUMBER IS [phone] CALL TOMORROW DISCUSS NEUROLOGY REFERRAL WITH DR PORTILLO, ESPECIALLY IF RESOLVING THE KIDNEY STONE DOES NOT IMPROVE NEUROLOGIC SYMPTOMS. Discharge Date/Time: 03/31/18 21:31
[2018-03-31 18:03] LABS: BACTERIA,URINE None Seen /HPF (None Seen); RBC,URINE 0-5 /HPF (0-5); SQUAMOUS EPITHELIAL CELL,UR RARE Squamous (<= Few)
[2018-03-31 18:04] LABS: CRYSTALS,URINE 26-50 Uric Acid /LPF
[2018-03-31] MEDS ORDERED: IOPAMIDOL-300 100 ML VIAL ONE (18:29)
[2018-03-31] MEDS ORDERED: IOPAMIDOL-300 100 ML VIAL IVP ONE (18:49)
--- NOTE | 2018-03-31 20:08 | CT Report ---
Reason: blurry vision headache Procedure Date: 03/31/2018 Accession Number: [id number] / [id number] Procedure: CT - Head W/O CPT Code: FULL RESULT: EXAM: CT HEAD EXAM DATE: 03/31/2018 07:12 PM. CLINICAL HISTORY: Blurry vision headache. COMPARISON: 11/07/2017. TECHNIQUE: Multiaxial CT images were obtained from the foramen magnum to the vertex. Reformats: Sagittal and coronal. IV contrast: None. In accordance with CT protocol optimization, one or more of the following dose reduction techniques were utilized for this exam: automated exposure control, adjustment of mA and/or KV based on patient size, or use of iterative reconstructive technique. FINDINGS: Parenchyma: No intraparenchymal hemorrhage. No evidence of mass, midline shift, or CT findings of acute infarct. There is an old right basal ganglia lacunar infarct, unchanged. Mild hypoattenuation in the cerebral white matter. Mcneil-white differentiation is distinct. Extraaxial Spaces: Normal for age. No subdural or epidural collections identified. Ventricles: Normal in size and position. Sinuses and Orbits: Imaged paranasal sinuses, orbits, and mastoids show no significant abnormality. Bones: No evidence of fracture or calvarial defect. Other: None. IMPRESSION: No acute intracranial abnormality. RADIA
--- NOTE | 2018-03-31 20:29 | CT Report ---
Reason: IV only, low abd pain Procedure Date: 03/31/2018 Accession Number: [id number] / [id number] Procedure: CT - Abdomen/Pelvis W/ CPT Code: FULL RESULT: EXAM: CT ABDOMEN AND PELVIS EXAM DATE: 03/31/2018 07:12 PM. CLINICAL HISTORY: Lower abdominal pain COMPARISONS: 09/03/2017 . TECHNIQUE: Routine helical CT imaging was performed through the abdomen and pelvis. IV contrast: ISOVUE 300 100mL. Enteric contrast: No. Reconstructions: Coronal and sagittal. In accordance with CT protocol optimization, one or more of the following dose reduction techniques were utilized for this exam: automated exposure control, adjustment of mA and/or KV based on patient size, or use of iterative reconstructive technique. FINDINGS: Lung Bases: Unremarkable. Liver: Normal. No masses. Gallbladder/Bile Ducts: Unremarkable. Spleen: Normal. Pancreas: Normal. Adrenal Glands: Normal. Kidneys: A nonobstructive right renal calculus measures 2.1 x 1.1 cm. A simple cyst in the right kidney measures 3.7 cm. A simple cyst in the left kidney measures 4.5 cm. Mild left hydronephrosis is due to a 5 x 10 x 7 mm stone in the left proximal ureter (4/50). Peritoneal Cavity/Bowel: A moderate hiatal hernia is present. Sigmoid diverticulosis is present. The appendix is not visualized. Pelvic Organs: Normal. The bladder and visualized pelvic organs are within normal limits. Vasculature: Arterial calcifications indicate atherosclerosis. Bones: Degenerative changes in the lower lumbar spine. A rightward lumbar scoliosis is seen. There is DISH of the thoracic spine. Other: None. IMPRESSION: 1. Mild left hydronephrosis due to a 10 mm stone in the proximal left ureter. 2. Nonobstructive right renal nephrolithiasis. 3. Moderate hiatal hernia. RADIA
[2018-03-31] MEDS ORDERED: ASPIRIN 325 MG TABLET PO STA (20:40)
[2018-03-31] MEDS ORDERED: AMOXICILLIN 250 MG CAPSULE PO STA (20:54)
[2018-03-31 21:32] VITALS: BP 170/102
== END 2018-03-31 21:31 | disposition home or self-care (01) ==
LOC: ED 16:12
DX: N13.2 Hydronephrosis with renal and ureteral calculous obstruction (principal); Z87.442 Personal history of urinary calculi; K44.9 Diaphragmatic hernia without obstruction or gangrene; M72.2 Plantar fascial fibromatosis; I10 Essential (primary) hypertension; E11.9 Type 2 diabetes mellitus without complications; Z79.84 Long term (current) use of oral hypoglycemic drugs; H66.92 Otitis media, unspecified, left ear
CPT/HCPCS: 36415; 69209; 70450; 74177; 80053; 81001; 83690; 85025; 96360; 96361; 99284; A9270; Q9967; 81003; 87086

== ENCOUNTER 2018-04-10 08:00 | Outpatient (CLI) | payer MEDICARE, BC ==
[2018-04-10 19:05] LABS: BILIRUBIN,URINE NEGATIVE (NEGATIVE); GLUCOSE, URINE (UA) >=1000 mg/dL (NEGATIVE); KETONES,URINE (UA) NEGATIVE (NEGATIVE); LEUKOCYTE ESTERASE, URINE NEGATIVE (NEGATIVE); NITRITE,URINE NEGATIVE (NEGATIVE); OCCULT BLOOD,URINE TRACE-INTA (NEGATIVE); PROTEIN,URINE NEGATIVE (NEGATIVE); UROBILINOGEN,URINE 0.2 (NORMAL) E.U./dL (NORMAL)
[2018-04-10 19:14] LABS: CALCIUM 9.3 mg/dL (8.5-10.3); CREATININE 1.2 mg/dL (0.6-1.2)
[2018-04-10 19:21] LABS: HB2 TOTAL 15.8 g/dL; HEMOGLOBIN A1C % 7.9 % (4.6-6.2)
[2018-04-10 19:29] LABS: BACTERIA,URINE Rare /HPF (None Seen); BASOPHILS # (AUTO) 0.1 10^3/uL (0.0-0.1); BASOPHILS % (AUTO) 0.7 %; CLARITY,URINE CLEAR (CLEAR); EOSINOPHILS # (AUTO) 0.1 10^3/uL (0.0-0.7); EOSINOPHILS % (AUTO) 0.6 %; HGB - HEMOGLOBIN 14.9 g/dL (14.0-18.0); LYMPHOCYTES # (AUTO) 1.2 10^3/uL (1.5-3.5); MEAN CORPUSCULAR HEMOGLOBIN 29.6 pg (27.0-31.0); MEAN CORPUSCULAR HGB CONC 33.5 g/dL (32.0-36.0); MEAN CORPUSCULAR VOLUME 88.4 fL (80.0-94.0); MEAN PLATELET VOLUME 7.7 fL (7.4-11.4); MONOCYTES % (AUTO) 9.6 %; MUCUS,URINE Few Strands; NEUTROPHILS # (AUTO) 7.8 10^3/uL (1.5-6.6); NEUTROPHILS % (AUTO) 77.1 %; PLT - PLATELET COUNT 332 10^3/uL (130-450); RBC,URINE 0-5 /HPF (0-5); RED BLOOD COUNT 5.04 10^6/uL (4.70-6.10); RED CELL DISTRIBUTION WIDTH 13.1 % (12.0-15.0); SQUAMOUS EPITHELIAL CELL,UR NONE SEEN (<= Few); WHITE BLOOD COUNT 10.2 x10^3/uL (4.8-10.8)
[2018-04-10 19:30] LABS: CRYSTALS,URINE 26-50 Uric Acid /LPF
== END 2018-04-10 23:59 | disposition home or self-care (01) ==
LOC: LAB.WCP 08:00
PROVIDERS: ATTEND Family Medicine
DX: E11.9 Type 2 diabetes mellitus without complications (principal); N20.0 Calculus of kidney
CPT/HCPCS: 36415; 80048; 81001; 82043; 83036; 85025; 87086

== ENCOUNTER 2018-04-24 12:27 | Outpatient (CLI) | payer MEDICARE, BC ==
[2018-04-24 19:17] LABS: BASOPHILS # (AUTO) 0.1 10^3/uL (0.0-0.1); EOSINOPHILS # (AUTO) 0.1 10^3/uL (0.0-0.7); EOSINOPHILS % (AUTO) 1.9 %; HGB - HEMOGLOBIN 13.7 g/dL (14.0-18.0); LYMPHOCYTES # (AUTO) 1.5 10^3/uL (1.5-3.5); LYMPHOCYTES % (AUTO) 20.2 %; MEAN CORPUSCULAR HEMOGLOBIN 29.5 pg (27.0-31.0); MEAN CORPUSCULAR VOLUME 86.8 fL (80.0-94.0); MEAN PLATELET VOLUME 7.7 fL (7.4-11.4); MONOCYTES # (AUTO) 0.7 10^3/uL (0.0-1.0); MONOCYTES % (AUTO) 10.2 %; NEUTROPHILS # (AUTO) 4.8 10^3/uL (1.5-6.6); NEUTROPHILS % (AUTO) 66.7 %; PLT - PLATELET COUNT 256 10^3/uL (130-450); RED BLOOD COUNT 4.65 10^6/uL (4.70-6.10); RED CELL DISTRIBUTION WIDTH 12.9 % (12.0-15.0); WHITE BLOOD COUNT 7.2 x10^3/uL (4.8-10.8)
[2018-04-24 19:27] LABS: ALBUMIN 3.9 g/dL (3.2-5.5); ALBUMIN/GLOBULIN RATIO 1.2 (1.0-2.2); BILIRUBIN,TOTAL 0.6 mg/dL (0.2-1.0); CALCIUM 8.9 mg/dL (8.5-10.3); CREATININE 1.1 mg/dL (0.6-1.2); TOTAL PROTEIN 7.2 g/dL (6.7-8.2)
== END 2018-04-24 23:59 | disposition home or self-care (01) ==
LOC: LAB.WCP 12:27
PROVIDERS: ATTEND Family Medicine
DX: N28.9 Disorder of kidney and ureter, unspecified (principal)
CPT/HCPCS: 36415; 80053; 85025

== ENCOUNTER 2018-04-30 08:00 | Outpatient (CLI) | payer MEDICARE, BC ==
[2018-04-30 19:51] LABS: BILIRUBIN,URINE NEGATIVE (NEGATIVE); GLUCOSE, URINE (UA) >=1000 mg/dL (NEGATIVE); KETONES,URINE (UA) NEGATIVE (NEGATIVE); LEUKOCYTE ESTERASE, URINE NEGATIVE (NEGATIVE); NITRITE,URINE NEGATIVE (NEGATIVE); OCCULT BLOOD,URINE MODERATE (NEGATIVE); PH,URINE 5.5 PH (5.0-7.5); PROTEIN,URINE NEGATIVE (NEGATIVE); UROBILINOGEN,URINE 0.2 (NORMAL) E.U./dL (NORMAL)
[2018-04-30 19:52] LABS: CLARITY,URINE CLEAR (CLEAR)
[2018-04-30 20:02] LABS: SQUAMOUS EPITHELIAL CELL,UR NONE SEEN (<= Few)
[2018-04-30 20:03] LABS: BACTERIA,URINE None Seen /HPF (None Seen); CRYSTALS,URINE 26-50 Uric Acid /LPF
== END 2018-04-30 23:59 | disposition home or self-care (01) ==
LOC: LAB.R 08:00
PROVIDERS: ATTEND Family Medicine
DX: N20.0 Calculus of kidney (principal)
CPT/HCPCS: 81001; 87086

== ENCOUNTER 2018-07-26 11:55 | Outpatient (CLI) | payer MEDICARE, BC ==
[2018-07-26 19:49] LABS: HB2 TOTAL 16.1 g/dL; HEMOGLOBIN A1C 1.09 g/dL; HEMOGLOBIN A1C % 8.3 % (4.6-6.2)
== END 2018-07-26 11:56 | disposition home or self-care (01) ==
LOC: LAB.WCP 11:55
PROVIDERS: ATTEND Family Medicine
DX: E11.9 Type 2 diabetes mellitus without complications (principal)
CPT/HCPCS: 36415; 83036

== ENCOUNTER 2019-01-29 13:32 | Observation (INO) | payer MEDICARE, BC ==
[2019-01-29 14:23] LABS: BASOPHILS # (AUTO) 0.1 10^3/uL (0.0-0.1); BASOPHILS % (AUTO) 0.7 %; EOSINOPHILS # (AUTO) 0.1 10^3/uL (0.0-0.7); EOSINOPHILS % (AUTO) 0.7 %; HGB - HEMOGLOBIN 15.5 g/dL (14.0-18.0); LYMPHOCYTES # (AUTO) 1.3 10^3/uL (1.5-3.5); LYMPHOCYTES % (AUTO) 17.6 %; MEAN CORPUSCULAR HEMOGLOBIN 30.4 pg (27.0-31.0); MEAN CORPUSCULAR HGB CONC 35.1 g/dL (32.0-36.0); MEAN CORPUSCULAR VOLUME 86.7 fL (80.0-94.0); MEAN PLATELET VOLUME 10.1 fL (7.4-11.4); MONOCYTES # (AUTO) 0.5 10^3/uL (0.0-1.0); MONOCYTES % (AUTO) 7.2 %; NEUTROPHILS # (AUTO) 5.4 10^3/uL (1.5-6.6); NEUTROPHILS % (AUTO) 73.1 %; PLT - PLATELET COUNT 219 10^3/uL (130-450); RED CELL DISTRIBUTION WIDTH 12.7 % (12.0-15.0); WHITE BLOOD COUNT 7.4 x10^3/uL (4.8-10.8)
[2019-01-29 14:45] LABS: ALBUMIN 3.9 g/dL (3.2-5.5); ALBUMIN/GLOBULIN RATIO 1.2 (1.0-2.2); CALCIUM 9.4 mg/dL (8.5-10.3); CREATININE 0.8 mg/dL (0.6-1.2); TOTAL PROTEIN 7.1 g/dL (6.7-8.2)
--- NOTE | 2019-01-29 15:37 | XRAY Report ---
Reason: pain Procedure Date: 01/29/2019 Accession Number: [id number] / [id number] Procedure: XR - Chest 2 View X-Ray CPT Code: 55096 FULL RESULT: EXAM: CHEST RADIOGRAPHY EXAM DATE: 01/29/2019 02:56 PM. CLINICAL HISTORY: Pain. COMPARISON: None. TECHNIQUE: 2 views. FINDINGS: Lungs/Pleura: No focal opacities evident. No pleural effusion. No pneumothorax. Decreased volumes. Mediastinum: Heart and mediastinal contours are unremarkable. Large hiatal hernia Other: DJD spine. Right clavicle postop changes IMPRESSION: No active cardiopulmonary disease RADIA
--- NOTE | 2019-01-29 15:38 | XRAY Report ---
Reason: pain Procedure Date: 01/29/2019 Accession Number: [id number] / [id number] Procedure: XR - Forearm RT CPT Code: FULL RESULT: EXAM: RIGHT FOREARM RADIOGRAPHY EXAM DATE: 01/29/2019 02:56 PM. CLINICAL HISTORY: Pain. COMPARISON: None. TECHNIQUE: 2 views. FINDINGS: Bones: Normal. No fractures or bone lesions. Joints: Normal. No effusions or subluxations in the visualized wrist or elbow joints. Soft Tissues: Normal. No soft tissue swelling. IMPRESSION: Normal forearm radiography. RADIA
--- NOTE | 2019-01-29 15:38 | XRAY Report ---
Reason: pain Procedure Date: 01/29/2019 Accession Number: [id number] / [id number] Procedure: XR - Shoulder 3 View RT CPT Code: FULL RESULT: EXAM: RIGHT SHOULDER RADIOGRAPHY EXAM DATE: 01/29/2019 02:56 PM. CLINICAL HISTORY: Pain. COMPARISON: None. TECHNIQUE: 3 views. FINDINGS: Bones: Osteopenia. No definite acute fracture or other bone lesion. Old clavicle fracture with small wire fixation fragments. Joints: Moderate to marked degenerative changes. Humeral head a little high in the glenoid fossa. Soft tissues: Clear visualized lung. IMPRESSION: Moderate to marked degenerative changes. Possible high riding shoulder compatible with underlying chronic rotator cuff tear. RADIA
--- NOTE | 2019-01-29 17:15 | ED Physician Documentation ---
PD HPI Fall - Stated complaint Stated Complaint: GLF - Chief complaint Chief Complaint: Trauma Hd/Nk - History obtained from History obtained from: Patient PD PAST MEDICAL HISTORY - Past Medical History Cardiovascular: Hypertension Respiratory: Sleep apnea Neuro: Peripheral neuropathy, Other Endocrine/Autoimmune: Type 2 diabetes GI: GERD, Colon polyps, Ulcerative colitis : Benign prostate hypertrophy, Nocturia, Kidney stones Psych: Depression, Anxiety Musculoskeletal: Osteoarthritis Derm: None - Past Surgical History Past Surgical History: Yes General: Colonoscopy Ortho: Other - Present Medications Home Medications: Ambulatory Orders Medication Instructions Recorded Confirmed Losartan Potassium [Cozaar] 100 mg PO DAILY 09/03/17 11/08/17 Metoprolol Tartrate [Lopressor] 50 mg PO BID 09/03/17 11/08/17 Sertraline HCl [Zoloft] 100 mg PO DAILY 09/03/17 11/08/17 Tamsulosin [Flomax] 0.4 mg PO QPM 09/03/17 11/08/17 hydroCHLOROthiazide [Hydrodiuril] 25 mg PO DAILY 09/03/17 11/08/17 metFORMIN [Glucophage] 1,000 mg PO BIDWM 09/03/17 11/08/17 Acetaminophen 500 mg PO Q6HR PRN #30 tablet 09/04/17 11/08/17 Balsalazide Disodium 1,500 mg PO DAILY 11/08/17 11/08/17 Cholecalciferol (Vitamin D3) 50,000 unit PO .QWEDSUN 11/08/17 11/08/17 [Vitamin D3] Amoxicillin 500 mg PO TID #30 capsule 03/31/18 Hydrocodone/Acetaminophen 1 - 2 each PO Q6H PRN #14 tablet 03/31/18 [Hydrocodon-Acetaminophen 5-325] - Allergies Allergies/Adverse Reactions: Allergies Allergy/AdvReac Type Severity Reaction Status Date / Time oxycodone AdvReac Mild Hallucinati Verified 01/29/19 13:43 ons - Social History Does the pt smoke?: No Smoking Status: Never smoker Does the pt drink ETOH?: Yes Does the pt have substance abuse?: No - Immunizations Immunizations are current?: Yes - POLST Patient has POLST: No POLST Status: Limited Interventions (he's willing to have surgeries, abx, or blood transfusions but if has arrhythmia with or severe stoke with plegia, let him go) Results - Vitals Vitals: Vital Signs - 24 hr 01/29/19 01/29/19 13:38 17:02 Temperature 36.5 C Heart Rate 64 70 Respiratory 17 20 Rate Blood Pressure 169/99 H 157/79 H O2 Saturation 100 99 Oxygen O2 Source Room air - Labs Labs: Laboratory Tests 01/29/19 01/29/19 01/29/19 14:16 14:16 16:48 WBC 7.4 RBC 5.10 Hgb 15.5 Hct 44.2 MCV 86.7 MCH 30.4 MCHC 35.1 RDW 12.7 Plt Count 219 MPV 10.1 Neut # (Auto) 5.4 Lymph # (Auto) 1.3 L [place] # (Auto) 0.5 Eos # (Auto) 0.1 Baso # (Auto) 0.1 Absolute Nucleated RBC 0.00 Nucleated RBC % 0.0 Sodium 137 Potassium 4.3 Chloride 100 L Carbon Dioxide 28 Anion Gap 9.0 BUN 13 Creatinine 0.8 Estimated GFR (MDRD) 94 Glucose 312 H POC Whole Bld Glucose 226 H Calcium 9.4 Total Bilirubin 1.0 AST 20 ALT 26 Alkaline Phosphatase 91 Troponin I High Sens Total Protein 7.1 Albumin 3.9 Globulin 3.2 Albumin/Globulin Ratio 1.2 Lipase 26 01/29/19 Unknown WBC RBC Hgb Hct MCV MCH MCHC RDW Plt Count MPV Neut # (Auto) Lymph # (Auto) [place] # (Auto) Eos # (Auto) Baso # (Auto) Absolute Nucleated RBC Nucleated RBC % Sodium Potassium Chloride Carbon Dioxide Anion Gap BUN Creatinine Estimated GFR (MDRD) Glucose POC Whole Bld Glucose Calcium Total Bilirubin AST ALT Alkaline Phosphatase Troponin I High Sens 4.1 Total Protein Albumin Globulin Albumin/Globulin Ratio Lipase
--- NOTE | 2019-01-29 18:56 | XRAY Report ---
Reason: Left chest tenderness after fall Procedure Date: 01/29/2019 Accession Number: [id number] / [id number] Procedure: XR - Ribs 2 View LT CPT Code: FULL RESULT: EXAM: LEFT RIB RADIOGRAPHY EXAM DATE: 01/29/2019 06:21 PM. CLINICAL HISTORY: Left chest tenderness after fall. COMPARISON: CHEST 2 VIEW 01/29/2019 2:56 PM ABDOMEN/PELVIS W/ 03/31/2018 6:50 PM. TECHNIQUE: 2 views. FINDINGS: Bones: Mildly displaced lateral left-sided rib fractures, likely of the left fifth through seventh ribs. Lungs: No focal opacities evident. No pneumothorax or pleural effusions. Mediastinum: Heart sounds within normal limits. Hiatal hernia. Other: None. IMPRESSION: 1. Mildly displaced lateral left-sided rib fractures, likely of the left fifth through seventh ribs. 2. No other fractures or malalignment identified. 3. Hiatal hernia. RADIA
[2019-01-29] MEDS ORDERED: METHOCARBAMOL 500 MG TABLET PO STA ×2 (19:07→23:17)
[2019-01-29] MEDS ORDERED: ACETAMINOPHEN 325 MG TABLET PO STA ×2 (19:08→23:17)
--- NOTE | 2019-01-29 23:18 | ED Physician Documentation ---
History of Present Illness - Stated complaint Stated Complaint: GLF - Chief complaint Chief Complaint: Trauma Hd/Nk - Additonal information Additional information: This is a 73-year-old male with a history of hypertension, diabetes, who pres ents after a fall. Patient was walking up some steps when he began to feel lightheaded, he thinks he fell backwards off of 3 steps which she thinks is 3 to 4 feet off the ground, impacting the back of his head. He did lose consciousness, he does not know how long he was out, and His fall was not witnessed. He impacted the right side of his chest as well as his head, is having pain over his ribs, with movement and when he takes a breath in. He does have a headache, but states that his rib pain is what is bothering him the most. He denies weakness, numbness. He did not have any chest pain or shortness of breath preceding the fall. Review of Systems Constitutional: denies: Fever Eyes: denies: Loss of vision Cardiac: reports: Chest pain / pressure Respiratory: denies: Hemoptysis GI: denies: Abdominal Pain : denies: Dysuria Skin: reports: Other (abrasion to scalp) Neurologic: reports: LOC Psychiatric: reports: Anxiety Immunocompromised: denies: Immunocompromised PD PAST MEDICAL HISTORY - Past Medical History Cardiovascular: Hypertension Respiratory: Sleep apnea Neuro: Peripheral neuropathy, Other Endocrine/Autoimmune: Type 2 diabetes GI: GERD, Colon polyps, Ulcerative colitis : Benign prostate hypertrophy, Nocturia, Kidney stones Psych: Depression, Anxiety Musculoskeletal: Osteoarthritis Derm: None - Past Surgical History Past Surgical History: Yes General: Colonoscopy Ortho: Other - Present Medications Home Medications: Ambulatory Orders Medication Instructions Recorded Confirmed Losartan Potassium [Cozaar] 100 mg PO DAILY 09/03/17 11/08/17 Metoprolol Tartrate [Lopressor] 50 mg PO BID 09/03/17 11/08/17 Sertraline HCl [Zoloft] 100 mg PO DAILY 09/03/17 11/08/17 Tamsulosin [Flomax] 0.4 mg PO QPM 09/03/17 11/08/17 hydroCHLOROthiazide [Hydrodiuril] 25 mg PO DAILY 09/03/17 11/08/17 metFORMIN [Glucophage] 1,000 mg PO BIDWM 09/03/17 11/08/17 Acetaminophen 500 mg PO Q6HR PRN #30 tablet 09/04/17 11/08/17 Balsalazide Disodium 1,500 mg PO DAILY 11/08/17 11/08/17 Cholecalciferol (Vitamin D3) 50,000 unit PO .QWEDSUN 11/08/17 11/08/17 [Vitamin D3] Amoxicillin 500 mg PO TID #30 capsule 03/31/18 Hydrocodone/Acetaminophen 1 - 2 each PO Q6H PRN #14 tablet 03/31/18 [Hydrocodon-Acetaminophen 5-325] - Allergies Allergies/Adverse Reactions: Allergies Allergy/AdvReac Type Severity Reaction Status Date / Time oxycodone AdvReac Mild Hallucinati Verified 01/29/19 13:43 ons - Social History Does the pt smoke?: No Smoking Status: Never smoker Does the pt drink ETOH?: Yes Does the pt have substance abuse?: No - Immunizations Immunizations are current?: Yes - POLST Patient has POLST: No POLST Status: Limited Interventions (he's willing to have surgeries, abx, or blood transfusions but if has arrhythmia with or severe stoke with plegia, let him go) PD ED PE NORMAL - Vitals Vital signs reviewed: Yes - General General: Alert and oriented X 3 - HEENT HEENT: Other (Abrasion over the posterior occiput, with some tenderness but no step-offs. No nur sign, no raccoon eyes, no step-offs or tenderness of the anterior face.) - Neck Neck: Supple, no meningeal sign - Cardiac Cardiac: RRR, No murmur - Respiratory Respiratory: No respiratory distress, Clear bilaterally, Other (Tenderness over the left chest to palpation.) - Abdomen Abdomen: Soft, Non tender, Non distended - Derm Derm: Warm and dry - Extremities Extremities: No deformity (Tenderness of right shoulder with good active ROM. Patient also has tenderness of the right forearm. All extremities are neurovascularly intact.) - Neuro Neuro: Alert and oriented X 3, general counsel 2-12 intact, No motor deficit, No sensory deficit, Normal speech - Psych Psych: Normal mood, Normal affect Results - Vitals Vitals: Vital Signs - 24 hr 01/29/19 01/29/19 01/29/19 13:38 17:02 19:00 Temperature 36.5 C Heart Rate 64 70 69 Respiratory 17 20 20 Rate Blood Pressure 169/99 H 157/79 H 140/78 H O2 Saturation 100 99 96 01/29/19 01/29/19 21:00 23:00 Temperature Heart Rate 70 107 H Respiratory 21 20 Rate Blood Pressure 144/79 H 121/94 H O2 Saturation 95 95 Oxygen O2 Source Room air - EKG (time done) 13:56 Other comments: Other comments (Rate 63, rhythm sinus, axis normal, there is no ST segment elevation or depression, no abnormal T wave inversions.) - Labs Labs: Laboratory Tests 01/29/19 01/29/19 01/29/19 14:16 14:16 16:48 WBC 7.4 RBC 5.10 Hgb 15.5 Hct 44.2 MCV 86.7 MCH 30.4 MCHC 35.1 RDW 12.7 Plt Count 219 MPV 10.1 Neut # (Auto) 5.4 Lymph # (Auto) 1.3 L [place] # (Auto) 0.5 Eos # (Auto) 0.1 Baso # (Auto) 0.1 Absolute Nucleated RBC 0.00 Nucleated RBC % 0.0 Sodium 137 Potassium 4.3 Chloride 100 L Carbon Dioxide 28 Anion Gap 9.0 BUN 13 Creatinine 0.8 Estimated GFR (MDRD) 94 Glucose 312 H POC Whole Bld Glucose 226 H Calcium 9.4 Total Bilirubin 1.0 AST 20 ALT 26 Alkaline Phosphatase 91 Troponin I High Sens Total Protein 7.1 Albumin 3.9 Globulin 3.2 Albumin/Globulin Ratio 1.2 Lipase 26 01/29/19 Unknown WBC RBC Hgb Hct MCV MCH MCHC RDW Plt Count MPV Neut # (Auto) Lymph # (Auto) [place] # (Auto) Eos # (Auto) Baso # (Auto) Absolute Nucleated RBC Nucleated RBC % Sodium Potassium Chloride Carbon Dioxide Anion Gap BUN Creatinine Estimated GFR (MDRD) Glucose POC Whole Bld Glucose Calcium Total Bilirubin AST ALT Alkaline Phosphatase Troponin I High Sens 4.1 Total Protein Albumin Globulin Albumin/Globulin Ratio Lipase - Rads (name of study) CXR Radiology: Other (No acute cardiopulmonary abnormality) XR ribs left Radiology: Other (Acute 5-7th rib fractures without pneumothorax) R shoulder Radiology: Other (Findings suggestive of chronic rotator cuff injury) R forearm Radiology: Other (No acute osseous abnormality) PD MEDICAL DECISION MAKING - ED course Complexity details: considered differential (Rib fracture, pneumothorax, hemothorax, abrasion, contusion, intracranial hemorrhage, concussion, syncope, dysrhythmia, ACS, orthostasis, vasovagal episode) ED course: On initial examination patient is alert, has a normal neurologic exam, does have signs of head trauma and has had tenderness. Given his lightheadedness and presyncope/syncope, EKG was obtained which shows no convincing signs of ischemia or dysrhythmia. CBC, CMP unremarkable. High-sensitivity troponin is normal. Patient not have any chest pain preceding the fall, and his chest pain now is over his left lateral ribs where he impacted. Chest x-ray was unremarkable, rib x-rays in the left show acute fractures in ribs 5 through 7. Patient was given Tylenol and methocarbamol for pain which controlled his pain fairly well. Remainder of his extremity films do not show signs of obvious fracture, patient has good range of motion of these extremities, I have a low suspicion for occult fracture at this time CT scan was ordered of patient's head, he went to CT however the CT scanner malfunction while he was in it, and they are unable to get the test performed. The CT was unable to be repaired prior to this morning. Spoke with patient and recommended that we transfer him so he could obtain a CT, he declines transfer. He understands the risks of declining transfer including a missed head bleed, risk for decompensation, neurologic problems, or even . He clearly has capacity. He understands these risks but would like to stay in this hospital. I think it is reasonable for him to be observed given his syncope as well as his multiple rib fractures. If we are able to arrange for CT while he is here we will do so as well, though patient understands this may not be possible. Patient was admitted to the hospitalist service, please refer to their notes for further hospital course. Departure - Departure Disposition: ED Place in Observation Clinical Impression: Syncope Qualifiers: Syncope type: unspecified Qualified Code(s): R55 - Syncope and collapse Head injury Qualifiers: Encounter type: initial encounter Qualified Code(s): S09.90XA - Unspecified injury of head, initial encounter Rib fractures Qualifiers: Encounter type: initial encounter Rib fracture type: multiple ribs Fracture type: closed Laterality: left Qualified Code(s): S22.42XA - Multiple fractures of ribs, left side, initial encounter for closed fracture Condition: Stable
[2019-01-29] MEDS ORDERED: ONDANSETRON 4 MG/2 ML VIAL IVP PRN (23:53)
[2019-01-29] MEDS ORDERED: oxyCODONE 5 MG TABLET PO PRN (23:53)
[2019-01-29] MEDS ORDERED: SODIUM CHLORIDE FLUSH 0.9% 10 ML SYRINGE IVP PRN (23:53)
--- NOTE | 2019-01-30 00:15 | HISTORY & PHYSICAL EXAMINATION ---
Chief Complaint - Chief Complaint Chief Complaint: Fall History of Present Illness - Admitted From Admitted From:: Home - History Obtained From Records Reviewed: Yes History obtained from: Patient, ER Physician - History of Present Illness HPI Comment/Other: This is a 73 year old male with a past medical history significant for TIA, type 2 diabetes, and hypertension who presents from home after having a syncopal episode this morning. The patient reports he was walking up the stairs when he felt "woozy" and then attempt to lean over to grab something before passing out and falling backwards. He is not sure how long he was out for or what exactly happened as it was an unwitnessed event. He denied chest pain and palpitations prior to the episode. He reports he has passed out before but the last time was 9 months ago and he can't recall if it was similar to this episode. He is currently complaining of a headache and blurry vision. He reports no weakness but does report numbness which is not new. His biggest complaint is left sided chest pain as well as minor left lower quadrant pain. His chest pain is most prominent with inspiration and cough. He did not take his home antihypertensives today but reports taking them on a daily basis. He is not on blood thinners. He does take a baby aspirin at times but reports it has been a couple of months since he has taken Aspirin. In the ER, he was initially hypertensive but not tachycardic, tachypnic, or hypoxic. His labs were unremarkable except for an elevated blood glucose. Imaging revealed mildly displaced lateral left sided rib fractures. He was to have a CT of the head completed but unfortunately the machine malfunctioned and is not available overnight. The ER Physician recommended that the patient be transferred to another facility to obtain imaging of the head to rule out a bra in hemorrhage but the patient did not want to be transferred. I also personally spoke with the patient and his spouse to discuss the risks and benefit of admission here vs transfer to another facility. I discussed that the biggest risk is if he has a brain hemorrhage and diagnosis is delayed, this could lead to neurologic decompensation and potential . He understands the risks but would still prefer to be admitted at this facility. He was able to communicate to me the risks and benefits of transfer and ultimately decided against transfer. He will be admitted under observation for syncope. Of note, I spoke with the patient regarding goals of care. He would like to be a full code at this time. History - Past Medical History Cardiovascular: reports: Hypertension Respiratory: reports: Sleep apnea Neuro: reports: Peripheral neuropathy, Other Endocrine/Autoimmune: reports: Type 2 diabetes GI: reports: GERD, Colon polyps, Ulcerative colitis : reports: Benign prostate hypertrophy, Nocturia, Kidney stones Psych: reports: Depression, Anxiety Musculoskeletal: reports: Osteoarthritis Derm: reports: None MRSA Hx?: No - Past Surgical History General: reports: Colonoscopy Ortho: reports: Other - Family & Social History Family History: Other family: Mental Illness Family History Comment/Other: He denies a family history of heart disease, stroke, diabetes, and syncope. He reports no known family history. Living arrangement: At home Social History Notes: He has lived on [facility] for >10 years. 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 He has been for 56 years. Reports prior smoking but states it was a long time ago and he did not smoke much. He drinks a beer every few days but denies daily alcohol use. 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 Economy down so hard f inances right now. 2 adopted sons and one is schizophrenic. to first for 56 years.Hx of alcohol use in his teens and 20's where he drank a lot of whiskey but then he just petered out. Rare tobacco use in teens and then stopped. No recreational substance abuse. Born and raised in [place]. [place] work 24 years ago but didn't move here until 14 years ago. Getting harder and harder to work bc of body and fatigue. worried. - Substance History Use: Uses substance without health or social issues: NONE - POLST Patient has POLST: No Meds/Allgy - Home Medications Home Medications: Ambulatory Orders Medication Instructions Recorded Confirmed Losartan Potassium [Cozaar] 100 mg PO DAILY 09/03/17 11/08/17 Metoprolol Tartrate [Lopressor] 50 mg PO BID 09/03/17 11/08/17 Sertraline HCl [Zoloft] 100 mg PO DAILY 09/03/17 11/08/17 Tamsulosin [Flomax] 0.4 mg PO QPM 09/03/17 11/08/17 hydroCHLOROthiazide [Hydrodiuril] 25 mg PO DAILY 09/03/17 11/08/17 metFORMIN [Glucophage] 1,000 mg PO BIDWM 09/03/17 11/08/17 Acetaminophen 500 mg PO Q6HR PRN #30 tablet 09/04/17 11/08/17 Balsalazide Disodium 1,500 mg PO DAILY 11/08/17 11/08/17 Cholecalciferol (Vitamin D3) 50,000 unit PO .QWEDSUN 11/08/17 11/08/17 [Vitamin D3] Amoxicillin 500 mg PO TID #30 capsule 03/31/18 Hydrocodone/Acetaminophen 1 - 2 each PO Q6H PRN #14 tablet 03/31/18 [Hydrocodon-Acetaminophen 5-325] - Allergies Allergies/Adverse Reactions: Allergies Allergy/AdvReac Type Severity Reaction Status Date / Time oxycodone AdvReac Mild Hallucinati Verified 01/29/19 13:43 ons Review of Systems - Constitutional Constitutional: denies: Fatigue, Weakness, Poor appetite - Eyes Eyes: reports: Blurred vision. denies: Vision loss - Cardiovascular Cariovascular: reports: Chest pain, Lightheadedness, Syncope. denies: Palpitations, Decr. exercise tolerance - Respiratory Respiratory: reports: Pleuritic pain. denies: SOB at rest, SOB with exertion - Gastrointestinal Gastrointestinal: reports: Abdominal pain. denies: Nausea, Vomiting - Musculoskeletal Musculoskeletal: reports: Back pain. denies: Limited range of motion, Muscle weakness - Neurological Neurological: reports: Headache, Dizziness, Numbness. denies: General weakness, Focal weakness, Slurred speech - All Other Systems All Other Systems: reports: Reviewed and negative Prior Level of Functionality: Independent with ADL's. Exam - Vital Signs Reviewed Vital Signs: Yes Vital Signs: Vital Signs x48h Pulse Resp BP Pulse Ox 01/29/19 23:00 107 H 20 121/94 H 95 01/29/19 21:00 70 21 144/79 H 95 01/29/19 19:00 69 20 140/78 H 96 01/29/19 17:02 70 20 157/79 H 99 - Physical Exam General Appearance: positive: No acute distress, Alert Eyes Bilateral: positive: Normal inspection, PERRL, EOMI, Conjunctivae nml ENT: positive: ENT inspection nml Neck: positive: Nml inspection Respiratory: positive: No respiratory distress, Breath sounds nml, Other (Chest tender to palpation over the lower left ribs.). negative: Chest non-tender, Wheezes, Rales, Rhonchi Cardiovascular: positive: Regular rate & rhythm, No murmur. negative: Tachycardia, Bradycardia, Systolic murmur, Diastolic murmur Abdomen: positive: Nml bowel sounds, No distention, Tenderness (Left lower quadrant). negative: Guarding, Rebound Back: positive: Other (Tenderness over the left paraspinal muscles and lumbar spine.) Skin: positive: Color nml, No rash, Warm, Other (2cm hematoma noted over the posterior scalp) Extremities: positive: Non-tender, Full ROM, No pedal edema Neurologic/Psychiatric: positive: Oriented x3, CN's nml (2-12), Motor nml, Sensation nml. negative: Disoriented to person, Disoriented to place, Disoriented to time, Weakness, Sensory loss, Facial droop, Slurred/abnml speech Conclusion/Plan - Problem List (1) Syncope Conclusion/Plan: Etiology is unclear at this time. Echo from last year without valvular disease. EKG today is unremarkable and troponin is negative. May have been orthostatic, less likely vagovagal given that he was going up the stairs. No neurological deficits on exam. - Check orthostatics - Will hold off on obtain an Echo as he had one from last year that was unremarkable - Monitor on telemetry - Trend troponin - Check urine drug screen - Obtain CT of the head in AM once CT scan is functioning - Once again, I apersonally spoke with the patient and his spouse to discuss the risks and benefit of admission here vs transfer to another facility. I discussed that the biggest risk is if he has a brain hemorrhage and diagnosis is delayed, this could lead to neurologic decompensation and potential . He understands the risks but would still prefer to be admitted at this facility. He was able to communicate to me the risks and benefits of transfer and ultimately decided against transfer. Qualifiers: Syncope type: unspecified Qualified Code(s): R55 - Syncope and collapse (2) Head injury Conclusion/Plan: He has a small hematoma over the posterior scalp. No neurological deficits on exam. Does endorse headache and blurry vision. - Will obtain CT head in the AM Qualifiers: Encounter type: initial encounter Qualified Code(s): S09.90XA - Unspecified injury of head, initial encounter (3) Rib fractures Conclusion/Plan: He has what appears to be mildly displaced fractures of the fifth to seventh left ribs. He is not hypoxic or tachypnic but does have pleuritic chest pain. Given his age, and multiple milldy displaced ribs fracture, it is reasonable to observe the patient overnight. - Oxycodone and Tylenol PRN Qualifiers: Encounter type: initial encounter Rib fracture type: multiple ribs Fracture type: closed Laterality: left Qualified Code(s): S22.42XA - Multiple fractures of ribs, left side, initial encounter for closed fracture (4) Essential hypertension Conclusion/Plan: He is on HCTZ, Metoprolol, and Losartan at home. Initially hypertensive upon arrival to the ER which may have been pain related. Currently normotensive. - Hold home antihypertensives until orthostatic hypotension is rule out (5) Type 2 diabetes mellitus, uncontrolled, with neuropathy Conclusion/Plan: He is on Metformin at home but reports noncompliance for the past few days. Blood glucose elevated on admission >200. - Sliding scale - Check A1c - CC diet (6) BPH (benign prostatic hyperplasia) Conclusion/Plan: He is on Flomax at home. Stable. - Hold Flomax until orthostatic hypotension is ruled out - Lab Results Lab results reviewed: Yes Fish Bones: 01/29/19 14:16 01/29/19 14:16 - Diagnostic Imaging Results Diagnostic Imaging Results: positive: Final report reviewed - EKG Results EKG Interpreted Independently: Yes EKG Findings: Sinus rhythm without ST segment changes. QTc is not prolonged. Core Measures - Anticipated LOS I expect patient to be DC'd or transferred within 96 hours.: Yes - Issues Hospital Issues and Management Plan: Syncope requiring further workup. Multiple displaced left rib fractures in an elderly male requiring observation. - DVT/VTE - Prophylaxis VTE/DVT Device ordered at admit?: Yes VTE/DVT Prophylaxis med ordered at admit?: No Not Ordered - Medical Reason: Contraindicated
[2019-01-30] MEDS ORDERED: ONDANSETRON ODT 4 MG TABLET TL PRN (01:00)
[2019-01-30 01:41] LABS: HB2 TOTAL 14.4 g/dL; HEMOGLOBIN A1C 1.53 g/dL; HEMOGLOBIN A1C % 11.9 % (4.6-6.2)
[2019-01-30] MEDS: SODIUM CHLORIDE FLUSH 0.9% 10 ML SYRINGE IVP SCH ×4 (02:35→23:48)
[2019-01-30] MEDS: METHOCARBAMOL 500 MG TABLET PO PRN ×3 (05:40→18:29)
[2019-01-30] MEDS ORDERED: INSULIN ASPART 300 UNIT/3 ML PEN SUBQ SCH (08:00)
[2019-01-30] MEDS: ACETAMINOPHEN 500 MG TABLET PO PRN ×2 (08:17→18:29)
[2019-01-30 09:08] LABS: MUDS CUTOFF CONCENTRATIONS CUTOFF CONC BELOW:
[2019-01-30 09:21] LABS: AMPHETAMINE SCREEN,URINE NEGATIVE (NEGATIVE); BENZODIAZEPINES SCREEN, URINE POSITIVE (NEGATIVE); COCAINE SCREEN URINE NEGATIVE (NEGATIVE); METHADONE SCREEN, URINE NEGATIVE (NEGATIVE); METHAMPHETAMINES SCREEN, URINE NEGATIVE (NEGATIVE); OPIATE SCREEN, URINE NEGATIVE (NEGATIVE); OXYCODONE SCREEN, URINE NEGATIVE (NEGATIVE); PROPOXYPHENE SCREEN, URINE NEGATIVE (NEGATIVE); TRICYCLIC ANTIDEPRESSANT,URINE NEGATIVE (NEGATIVE)
[2019-01-30] MEDS ORDERED: INSULIN ASPART 300 UNIT/3 ML PEN SUBQ ONE (09:23)
[2019-01-30] MEDS ORDERED: HYDROcod/ACETAM 5/325 MG TABLET PO PRN (09:24)
[2019-01-30] MEDS ORDERED: KETOROLAC 10 MG TABLET PO PRN (10:43)
[2019-01-30 11:21] LABS: BASOPHILS % (AUTO) 0.4 %; EOSINOPHILS # (AUTO) 0.1 10^3/uL (0.0-0.7); HGB - HEMOGLOBIN 14.1 g/dL (14.0-18.0); LYMPHOCYTES # (AUTO) 1.2 10^3/uL (1.5-3.5); LYMPHOCYTES % (AUTO) 16.1 %; MEAN CORPUSCULAR HEMOGLOBIN 30.5 pg (27.0-31.0); MEAN CORPUSCULAR HGB CONC 35.9 g/dL (32.0-36.0); MEAN CORPUSCULAR VOLUME 85.1 fL (80.0-94.0); MEAN PLATELET VOLUME 10.2 fL (7.4-11.4); MONOCYTES # (AUTO) 0.7 10^3/uL (0.0-1.0); MONOCYTES % (AUTO) 10.2 %; NEUTROPHILS # (AUTO) 5.1 10^3/uL (1.5-6.6); NEUTROPHILS % (AUTO) 71.9 %; PLT - PLATELET COUNT 165 10^3/uL (130-450); RED BLOOD COUNT 4.62 10^6/uL (4.70-6.10); RED CELL DISTRIBUTION WIDTH 12.7 % (12.0-15.0); WHITE BLOOD COUNT 7.1 x10^3/uL (4.8-10.8)
[2019-01-30] MEDS: GABAPENTIN 300 MG CAPSULE PO SCH ×3 (11:30→21:20)
[2019-01-30] MEDS: INSULIN ASPART 300 UNIT/3 ML PEN SUBQ SCH ×3 (11:31→21:20)
[2019-01-30 11:39] LABS: CALCIUM 8.7 mg/dL (8.5-10.3); CREATININE 0.9 mg/dL (0.6-1.2); MAGNESIUM 1.8 mg/dL (1.7-2.8)
--- NOTE | 2019-01-30 18:23 | PROVIDER PROGRESS NOTE ---
Subjective - Prog Note Date Prog Note Date: 01/30/19 - Subjective Pt reports feeling: Improved Subjective: pt report he feel significant pain at left rubs when he took deep breath. pt report he had ground level fall in the home and his head hit the ground directly. he still complain headache. our CT machine did not work, will order MRI for pt. pt's glucose level is still high, over 300, will work to control his hyperglycemia. Current Medications - Current Medications Current Medications: Active Medications Acetaminophen (Tylenol) 1,000 mg PO Q8H PRN PRN Reason: Pain or Fever > 38C (100.4F) Last Admin: 01/31/19 11:53 Dose: 1,000 mg Fentanyl (Duragesic) 1 patch TOP Q3D [facility] Last Admin: 01/31/19 09:10 Dose: 1 patch Gabapentin (Neurontin) 300 mg PO TID [facility] Last Admin: 01/31/19 14:22 Dose: 300 mg Glipizide (Glucotrol) 5 mg PO 0730 [facility] Last Admin: 01/31/19 11:48 Dose: 5 mg Hydrochlorothiazide (Hydrodiuril) 25 mg PO DAILY [facility] Last Admin: 01/31/19 08:41 Dose: 25 mg Insulin Aspart (Novolog) 3 - 11 unit SUBQ 0800,1200,1700,2100 [facility]; Protocol Last Admin: 01/31/19 11:48 Dose: 9 unit Insulin Glargine (Lantus Solostar) 15 unit SUBQ QPM [facility] Last Admin: 01/30/19 21:20 Dose: 15 unit Ketorolac Tromethamine (Toradol) 10 mg PO Q6HR PRN PRN Reason: PAIN Stop: 02/04/19 10:42 Last Admin: 01/30/19 11:30 Dose: 10 mg Losartan Potassium (Cozaar) 100 mg PO DAILY [facility] Last Admin: 01/31/19 08:35 Dose: 100 mg Methocarbamol (Robaxin) 500 mg PO Q6HR PRN PRN Reason: Spasms Last Admin: 01/31/19 11:53 Dose: 500 mg Metoprolol Tartrate (Lopressor) 50 mg PO BID [facility] Last Admin: 01/31/19 08:34 Dose: 50 mg Ondansetron HCl (Zofran Odt) 4 mg TL Q6HR PRN PRN Reason: Nausea / Vomiting Sodium Chloride (Normal Saline Flush 0.9%) 10 ml IVP PRN PRN PRN Reason: NEEDED PER PROVIDER ORDERS Last Admin: 01/30/19 09:00 Dose: 10 ml Sodium Chloride (Normal Saline Flush 0.9%) 10 ml IVP 0100,0900,1700 [facility] Last Admin: 01/31/19 07:50 Dose: 10 ml metFORMIN [Glucophage] 1,000 mg PO BIDWM 09/03/17 Atorvastatin Calcium 40 mg PO QPM 01/30/19 Gabapentin 300 - 600 mg PO TID PRN 01/30/19 Metoprolol Tartrate [Lopressor] 50 mg PO BID 01/30/19 Objective - Vital Signs/Intake & Output Reviewed Vital Signs: Yes Vital Signs: Vital Signs x48h Temp Pulse Resp BP Pulse Ox 01/30/19 16:32 36.6 C 87 16 145/78 H 93 Intake & Output: Intake & Output 01/27/19 01/28/19 01/29/19 01/30/19 23:59 23:59 23:59 23:59 Intake Total 2540 Output Total 725 Balance 1815 - Objective General Appearance: positive: No acute distress, Alert. negative: Lethargic Eyes Bilateral: positive: Normal inspection, PERRL, No lid inflammation, Co njunctivae nml ENT: positive: ENT inspection nml, Pharynx nml, No signs of dehydration. negative: Purulent nasal drainage, Pharyngeal erythema, Oral lesions Neck: positive: Nml inspection, Thyroid nml, No JVD, Trachea midline. negative: Thyromegaly, Lymphadenopathy (R), Lymphadenopathy (L), Stiff neck, Swelling/bruising, Tracheal deviation Respiratory: positive: Chest non-tender, No respiratory distress, Breath sounds nml. negative: Wheezes, Rales, Rhonchi Cardiovascular: positive: Regular rate & rhythm, No murmur, No gallop. negative: Irregularly irregular, Extrasystoles, Tachycardia, Bradycardia, JVD present, Systolic murmur, Diastolic murmur Peripheral Pulses: 2+ Radial (R), 2+ Radial (L), 2+ Dorsalis pedis (R), 2+ Dorsalis pedis (L) Abdomen: positive: Non-tender, No organomegaly, Nml bowel sounds, No distention. negative: Tenderness, Guarding, Rebound Back: positive: Nml inspection. negative: CVA tenderness (R), CVA tenderness (L) Skin: positive: Color nml, No rash, Warm, Dry. negative: Cyanosis, Diaphoresis, Pallor Extremities: positive: Non-tender, Nml appearance. negative: Calf tenderness, Joint swelling, Malik's sign/cords Neurologic/Psychiatric: positive: Oriented x3, Sensation nml, Mood/affect nml. negative: Weakness, Sensory loss, Facial droop, Slurred/abnml speech, Depressed mood/affect - Lab Results Fish Bones: 01/31/19 05:05 01/31/19 05:05 Other Labs: Lab Results x24hrs 01/30/19 01/30/19 01/30/19 Range/Units 16:28 11:24 11:16 WBC (4.8-10.8) x10^3/uL RBC (4.70-6.10) 10^6/uL Hgb (14.0-18.0) g/dL Hct (42.0-52.0) % MCV (80.0-94.0) fL MCH (27.0-31.0) pg MCHC (32.0-36.0) g/dL RDW (12.0-15.0) % Plt Count (130-450) 10^3/uL MPV (7.4-11.4) fL Neut # (Auto) (1.5-6.6) 10^3/uL Lymph # (Auto) (1.5-3.5) 10^3/uL Fisher # (Auto) (0.0-1.0) 10^3/uL Eos # (Auto) (0.0-0.7) 10^3/uL Baso # (Auto) (0.0-0.1) 10^3/uL Absolute Nucleated RBC x10^3/uL Nucleated RBC % /100WBC Sodium 134 L (135-145) mmol/L Potassium 4.0 (3.5-5.0) mmol/L Chloride 100 L (101-111) mmol/L Carbon Dioxide 24 (21-32) mmol/L Anion Gap 10.0 (6-13) BUN 15 (6-20) mg/dL Creatinine 0.9 (0.6-1.2) mg/dL Estimated GFR (MDRD) 82 L (>89) Glucose 389 H (70-100) mg/dL POC Whole Bld Glucose 145 H 327 H (70 - 100) mg/dL Glycated Hemoglobin (4.6-6.2) % Estim Average Glucose (70-100) Calcium 8.7 (8.5-10.3) mg/dL Magnesium 1.8 (1.7-2.8) mg/dL Troponin I High Sens (2.3-19.7) pg/mL Urine Opiates Screen (NEGATIVE) Ur Oxycodone Screen (NEGATIVE) Urine Methadone Screen (NEGATIVE) Ur Propoxyphene Screen (NEGATIVE) Ur Barbiturates Screen (NEGATIVE) Ur Tricyclics Screen (NEGATIVE) Ur Phencyclidine Scrn (NEGATIVE) Ur Amphetamine Screen (NEGATIVE) U Methamphetamines Scrn (NEGATIVE) U Benzodiazepines Scrn (NEGATIVE) Urine Cocaine Screen (NEGATIVE) U Cannabinoids Screen (NEGATIVE) 01/30/19 01/30/19 01/30/19 Range/Units 11:16 08:03 07:52 WBC 7.1 (4.8-10.8) x10^3/uL RBC 4.62 L (4.70-6.10) 10^6/uL Hgb 14.1 (14.0-18.0) g/dL Hct 39.3 L (42.0-52.0) % MCV 85.1 (80.0-94.0) fL MCH 30.5 (27.0-31.0) pg MCHC 35.9 (32.0-36.0) g/dL RDW 12.7 (12.0-15.0) % Plt Count 165 (130-450) 10^3/uL MPV 10.2 (7.4-11.4) fL Neut # (Auto) 5.1 (1.5-6.6) 10^3/uL Lymph # (Auto) 1.2 L (1.5-3.5) 10^3/uL Fisher # (Auto) 0.7 (0.0-1.0) 10^3/uL Eos # (Auto) 0.1 (0.0-0.7) 10^3/uL Baso # (Auto) 0.0 (0.0-0.1) 10^3/uL Absolute Nucleated RBC 0.00 x10^3/uL Nucleated RBC % 0.0 /100WBC Sodium (135-145) mmol/L Potassium (3.5-5.0) mmol/L Chloride (101-111) mmol/L Carbon Dioxide (21-32) mmol/L Anion Gap (6-13) BUN (6-20) mg/dL Creatinine (0.6-1.2) mg/dL Estimated GFR (MDRD) (>89) Glucose (70-100) mg/dL POC Whole Bld Glucose 324 H (70 - 100) mg/dL Glycated Hemoglobin (4.6-6.2) % Estim Average Glucose (70-100) Calcium (8.5-10.3) mg/dL Magnesium (1.7-2.8) mg/dL Troponin I High Sens (2.3-19.7) pg/mL Urine Opiates Screen NEGATIVE (NEGATIVE) Ur Oxycodone Screen NEGATIVE (NEGATIVE) Urine Methadone Screen NEGATIVE (NEGATIVE) Ur Propoxyphene Screen NEGATIVE (NEGATIVE) Ur Barbiturates Screen NEGATIVE (NEGATIVE) Ur Tricyclics Screen NEGATIVE (NEGATIVE) Ur Phencyclidine Scrn NEGATIVE (NEGATIVE) Ur Amphetamine Screen NEGATIVE (NEGATIVE) U Methamphetamines Scrn NEGATIVE (NEGATIVE) U Benzodiazepines Scrn POSITIVE H (NEGATIVE) Urine Cocaine Screen NEGATIVE (NEGATIVE) U Cannabinoids Screen NEGATIVE (NEGATIVE) 01/30/19 01/30/19 Range/Units 01:15 01:15 WBC (4.8-10.8) x10^3/uL RBC (4.70-6.10) 10^6/uL Hgb (14.0-18.0) g/dL Hct (42.0-52.0) % MCV (80.0-94.0) fL MCH (27.0-31.0) pg MCHC (32.0-36.0) g/dL RDW (12.0-15.0) % Plt Count (130-450) 10^3/uL MPV (7.4-11.4) fL Neut # (Auto) (1.5-6.6) 10^3/uL Lymph # (Auto) (1.5-3.5) 10^3/uL Fisher # (Auto) (0.0-1.0) 10^3/uL Eos # (Auto) (0.0-0.7) 10^3/uL Baso # (Auto) (0.0-0.1) 10^3/uL Absolute Nucleated RBC x10^3/uL Nucleated RBC % /100WBC Sodium (135-145) mmol/L Potassium (3.5-5.0) mmol/L Chloride (101-111) mmol/L Carbon Dioxide (21-32) mmol/L Anion Gap (6-13) BUN (6-20) mg/dL Creatinine (0.6-1.2) mg/dL Estimated GFR (MDRD) (>89) Glucose (70-100) mg/dL POC Whole Bld Glucose (70 - 100) mg/dL Glycated Hemoglobin 11.9 H (4.6-6.2) % Estim Average Glucose 295 H (70-100) Calcium (8.5-10.3) mg/dL Magnesium (1.7-2.8) mg/dL Troponin I High Sens 4.4 (2.3-19.7) pg/mL Urine Opiates Screen (NEGATIVE) Ur Oxycodone Screen (NEGATIVE) Urine Methadone Screen (NEGATIVE) Ur Propoxyphene Screen (NEGATIVE) Ur Barbiturates Screen (NEGATIVE) Ur Tricyclics Screen (NEGATIVE) Ur Phencyclidine Scrn (NEGATIVE) Ur Amphetamine Screen (NEGATIVE) U Methamphetamines Scrn (NEGATIVE) U Benzodiazepines Scrn (NEGATIVE) Urine Cocaine Screen (NEGATIVE) U Cannabinoids Screen (NEGATIVE) ABX Reporting Has patient been on IV antibiotics over the past 48 hours?: No Sepsis Event Note (H) - Evaluation Current Stage of Sepsis: Ruled out Assessment/Plan - Problem List (1) Syncope Impression: 01/30 no syncope in the hospital. MRI of brain and ECHO are pending, will followup pt may have mild orthostatic hypotension continue orthostatic BP check (2) Head injury 01/30 pt complain of mild headache, MRI of head is pending pt denies focal neurological deficits fall precaution (3) Rib fractures Conclusion/Plan: pt report pain medications make his confused, he refused to have opiates continue Tylenol, add Toradol (4) Essential hypertension Conclusion/Plan: 01/30 will reconcile pt's home BP meds after pt had stable orthostatic (5) Type 2 diabetes mellitus, uncontrolled, with neuropathy Conclusion/Plan: 9/5 pt took Metformin at home. discussion with pt about benefit and risk of insulin to control of DM2, pt refused to take insulin at home. add Lantus at night, increase slide scale to high degree to control pt's hyperglycemia. pt had over 300 glucose level (6) BPH (benign prostatic hyperplasia) Conclusion/Plan: stable, continue Flomax (7) medical non-compliance pt report he is not followup medical advise "dependent on my financial condition, I take medications as I want." pt refuse to take insulin at home. advise pt followup medical recommendations special he had uncontrolled hyperglycemia. Qualifiers: Syncope type: unspecified Qualified Code(s): R55 - Syncope and collapse
--- NOTE | 2019-01-30 19:00 | MRI Report ---
Reason: fall, CT is not available Procedure Date: 01/30/2019 Accession Number: [id number] / [id number] Procedure: MRI - Brain W/O CPT Code: FULL RESULT: EXAM: MRI BRAIN WITHOUT CONTRAST EXAM DATE: 01/30/2019 06:38 PM. CLINICAL HISTORY: 73-year-old male. Fall, CT is not available. COMPARISON: MR brain 11/08/2018 TECHNIQUE: Multiplanar, multisequence T1-weighted and fluid-sensitive MR sequences of the brain were performed. Sequences optimized for routine evaluation. Other: None. IV Contrast: None. FINDINGS: Brain Volume: Moderate diffuse cerebral volume loss with ex-vacuo dilatation of the ventricles and sulci, similar to prior study. Parenchyma/Dura: No mass, acute infarct or hemorrhage. Extensive, semi-confluent T2/FLAIR hyperintense periventricular, deep, and subcortical white matter lesions within cerebral hemispheres bilaterally, similar to the prior study. No parenchymal foci of susceptibility artifact. Chronic lacunar infarcts right basal ganglia and right fregoso radiata. Ventricles/Cisterns: Stable size and configuration. No hydrocephalus. No abnormal extra-axial fluid collection or hemorrhage. Orbits: Symmetric and unremarkable. Sella Turcica: The pituitary gland, cavernous sinuses, suprasellar cistern and optic chiasm are unremarkable. IAC: Symmetric and unremarkable. Vasculature: Normal signal flow void is seen in the major arterial structures at the skull base. Sinuses: No acute appearing sinus disease. Bones: No focal pathologic appearing marrow signal changes. Other: None. IMPRESSION: 1. No MRI evidence of acute intracranial abnormality. Specifically, no evidence of acute or subacute infarct, acute intracranial hemorrhage, mass, midline shift, or hydrocephalus. 2. Moderate diffuse cerebral volume loss with ex-vacuo dilatation of the ventricles and sulci, similar to prior study. 3. Extensive, semi-confluent T2/FLAIR hyperintense periventricular, deep, and subcortical white matter lesions within cerebral hemispheres bilaterally, similar to the prior study. 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 4. Chronic lacunar infarcts right basal ganglia and right fregoso radiata. RADIA
[2019-01-30] MEDS ORDERED: INSULIN GLARGINE 300 UNIT/3 ML PEN SUBQ SCH (21:00)
[2019-01-31 05:28] LABS: BASOPHILS % (AUTO) 0.7 %; EOSINOPHILS # (AUTO) 0.1 10^3/uL (0.0-0.7); EOSINOPHILS % (AUTO) 1.4 %; HGB - HEMOGLOBIN 13.3 g/dL (14.0-18.0); LYMPHOCYTES # (AUTO) 2.1 10^3/uL (1.5-3.5); LYMPHOCYTES % (AUTO) 36.7 %; MEAN CORPUSCULAR HEMOGLOBIN 29.8 pg (27.0-31.0); MEAN PLATELET VOLUME 10.2 fL (7.4-11.4); MONOCYTES # (AUTO) 0.5 10^3/uL (0.0-1.0); MONOCYTES % (AUTO) 9.1 %; NEUTROPHILS % (AUTO) 51.7 %; PLT - PLATELET COUNT 155 10^3/uL (130-450); RED BLOOD COUNT 4.47 10^6/uL (4.70-6.10); RED CELL DISTRIBUTION WIDTH 12.8 % (12.0-15.0); WHITE BLOOD COUNT 5.7 x10^3/uL (4.8-10.8)
[2019-01-31 05:33] LABS: CALCIUM 8.4 mg/dL (8.5-10.3); CREATININE 0.7 mg/dL (0.6-1.2)
[2019-01-31] MEDS: GABAPENTIN 300 MG CAPSULE PO SCH ×2 (06:00→14:22)
[2019-01-31] MEDS: INSULIN ASPART 300 UNIT/3 ML PEN SUBQ SCH ×2 (07:49→11:48)
[2019-01-31] MEDS: SODIUM CHLORIDE FLUSH 0.9% 10 ML SYRINGE IVP SCH (07:50)
[2019-01-31] MEDS ORDERED: METOPROLOL TARTRATE 50 MG TABLET PO SCH (09:00)
[2019-01-31] MEDS ORDERED: fentaNYL 25 MCG PATCH TOP SCH (09:00)
[2019-01-31] MEDS ORDERED: hydroCHLOROthiazide 25 MG TABLET PO SCH (09:00)
[2019-01-31] MEDS ORDERED: LOSARTAN 50 MG TABLET PO SCH (09:00)
[2019-01-31] MEDS ORDERED: glipiZIDE 5 MG TABLET PO SCH (11:04)
[2019-01-31] MEDS: ACETAMINOPHEN 500 MG TABLET PO PRN (11:53)
[2019-01-31] MEDS: METHOCARBAMOL 500 MG TABLET PO PRN (11:53)
--- NOTE | 2019-01-31 14:46 | Discharge Plan ---
Discharge Plan Problem Reviewed?: Yes Disposition: Home, Self Care Condition: Poor Prescriptions: fentaNYL [Fentanyl 25mcg patch] 1 each TD Q3D PRN #2 patch.td72 PRN Reason: Pain Glipizide 10 mg PO DAILY #10 tablet Diet: Diabetic Activity Restrictions: Activity as Tolerated Shower Restrictions: No (fall precaution) Instruction Topics: Metformin tablets, Glipizide tablets, Hypoglycemia, Diabetes Type 2 Oral Meds, Diabetes Manage A1C Test, Hyperglycemia, fentanyl skin patch, Acetaminophen Oxycodone tablets, Acetaminophen Hydrocodone tablets or capsules Health Concerns: fall, uncontrolled diabetes, rib fractures Plan of Treatment: discussed with about fall precaution such as slowly standup and safely slowly ambulation. you declined to initiate your insulin therapy. New medication glipizide is prescribed for your diabetes management, please followup your PCP for further management. two pain medications Fentanyl patch and [place] are prescribed for your pain control. Care Goals: stabilization and improvement of your medical conditions Assessment: assessment as the above Additional Instructions or Follow Up instructions: you may followup your PCP in one week, followup your PCP for your diabetes management. Should your symptoms return or worse, you may present ER or call 911 for help. Follow-Up Care: [facility] - Diabetes Ed No Smoking: If you smoke, Please STOP! Call for help. Follow-up with: LAMBERT PORTILLO MD [Primary Care Provider] -
--- NOTE | 2019-01-31 15:10 | DISCHARGE SUMMARY ---
Discharge Summary Discharge Date: 01/31/19 Discharging Provider: POPE Primary Care Provider: Dr. Noe Condition at Discharge: Poor Discharge Disposition: 01 Home, Self Care Discharge Facility Name: home - DIAGNOSES Admission Diagnoses: (1) Syncope (2) Head injury (3) Rib fractures (4) Essential hypertension (5) Type 2 diabetes mellitus, uncontrolled, with neuropathy (6) BPH (benign prostatic hyperplasia) Discharge Diagnoses with Status of Each Condition: 1) Syncope stable. no more syncope at hospital (2) Head injury stable. MRI reveals unremarkable (3) Rib fractures stable. [place] and Fentanyl patch were prescribed for pt's pain control. (4) Essential hypertension stable (5) Type 2 diabetes mellitus, uncontrolled, with neuropathy stable. pt refused to initiate insulin therapy. Glipizide is prescribed for pt (6) BPH (benign prostatic hyperplasia) stable (7) medical non-compliance advise pt followup medical advise - HPI History of Present Illness: refer Dr. Esquivel's HPI on 01/30/19 This is a 73 year old male with a past medical history significant for TIA, type 2 diabetes, and hypertension who presents from home after having a syncopal episode this morning. The patient reports he was walking up the stairs when he felt "woozy" and then attempt to lean over to grab something before passing out and falling backwards. He is not sure how long he was out for or what exactly happened as it was an unwitnessed event. He denied chest pain and palpitations prior to the episode. He reports he has passed out before but the last time was 9 months ago and he can't recall if it was similar to this episode. He is currently complaining of a headache and blurry vision. He reports no weakness b ut does report numbness which is not new. His biggest complaint is left sided chest pain as well as minor left lower quadrant pain. His chest pain is most prominent with inspiration and cough. He did not take his home antihypertensives today but reports taking them on a daily basis. He is not on blood thinners. He does take a baby aspirin at times but reports it has been a couple of months since he has taken Aspirin. In the ER, he was initially hypertensive but not tachycardic, tachypnic, or hy poxic. His labs were unremarkable except for an elevated blood glucose. Imaging revealed mildly displaced lateral left sided rib fractures. He was to have a CT of the head completed but unfortunately the machine malfunctioned and is not available overnight. The ER Physician recommended that the patient be transferred to another facility to obtain imaging of the head to rule out a brain hemorrhage but the patient did not want to be transferred. I also personally spoke with the patient and his spouse to discuss the risks and benefit of admission here vs transfer to another facility. I discussed that the biggest risk is if he has a brain hemorrhage and diagnosis is delayed, this could lead to neurologic decompensation and potential . He understands the risks but would still prefer to be admitted at this facility. He was able to communicate to me the risks and benefits of transfer and ultimately decided against transfer. He will be admitted under observation for syncope. Of note, I spoke with the patient regarding goals of care. He would like to be a full code at this time. - HOSPITAL COURSE Hospital Course: pt was admitted for fall and syncope. MRI of brain was unremarkable for acute findings. pt was found to have left three rib fractures. pt was prescribed Fentanyl patch and [place] for pain control. PT/OT evaluated and treated pt. No further PT/OT need was recommended. pt was advised how to prevent of fall. pt has issue for medical non-compliance. pt was advised to do medical compliance. Pt had A1C11.9 and hyperglycemia. pt refused to initiate insulin therapy in the home. The detail hospital course is as the below 1) Syncope stable. There was no more syncope at hospital. The cause of syncope can be com bination of vasovagal and dehydration. pt was advised how to prevent fall. pt was evaluated and treated by PT/OT. MRI and ECHO were unremarkable. (2) Head injury stable. MRI reveals unremarkable. pt denies headache, vision change. (3) Rib fractures stable. [place] and Fentanyl patch were prescribed for pt's pain control. (4) Essential hypertension stable (5) Type 2 diabetes mellitus, uncontrolled, with neuropathy stable. pt refused to initiate insulin therapy. Glipizide is prescribed for pt (6) BPH (benign prostatic hyperplasia) stable (7) medical non-compliance advise pt do medical compliance - ALLERGIES Allergies/Adverse Reactions: Allergies Allergy/AdvReac Type Severity Reaction Status Date / Time oxycodone AdvReac Mild Hallucinati Verified 01/29/19 13:43 ons - MEDICATIONS Home Medications: Ambulatory Orders Medication Instructions Recorded Confirmed metFORMIN [Glucophage] 1,000 mg PO BIDWM 09/03/17 01/31/19 Atorvastatin Calcium 40 mg PO QPM 01/30/19 01/31/19 Gabapentin 300 - 600 mg PO TID PRN 01/30/19 01/31/19 Metoprolol Tartrate [Lopressor] 50 mg PO BID 01/30/19 01/31/19 Glipizide 10 mg PO DAILY #10 tablet 01/31/19 HYDROcod/ACETAM 5/325 [[place] 5/325] 1 - 2 ea PO Q6H PRN #15 tablet 01/31/19 fentaNYL [Fentanyl 25mcg patch] 1 each TD Q3D PRN #2 patch.td72 01/31/19 - PHYSICAL EXAM AT DISCHARGE General Appearance: positive: No acute distress, Alert. negative: Lethargic Eyes Bilateral: positive: Normal inspection, PERRL, No lid inflammation, Conjunctivae nml ENT: positive: ENT inspection nml, Pharynx nml, No signs of dehydration. negative: Purulent nasal drainage, Pharyngeal erythema, Oral lesions Neck: positive: Nml inspection, Thyroid nml, No JVD, Trachea midline. negative: Thyromegaly, Lymphadenopathy (R), Lymphadenopathy (L), Stiff neck, Swelling/bruising, Tracheal deviation Respiratory: positive: Chest non-tender, No respiratory distress, Breath sounds nml. negative: Wheezes, Rales, Rhonchi Cardiovascular: positive: Regular rate & rhythm, No murmur, No gallop. negative: Irregularly irregular, Extrasystoles, Tachycardia, Bradycardia, JVD present, Systolic murmur, Diastolic murmur Peripheral Pulses: positive: 2+ Abdomen: positive: Non-tender, No organomegaly, Nml bowel sounds, No distention. negative: Tenderness, Guarding, Rebound Back: positive: Nml inspection. negative: CVA tenderness (R), CVA tenderness (L) Skin: positive: Color nml, No rash, Warm, Dry. negative: Cyanosis, Diaphoresis, Pallor Extremities: positive: Non-tender, Nml appearance. negative: Calf tenderness, Joint swelling, Malik's sign/cords Neurologic/Psychiatric: positive: Oriented x3, Motor nml, Sensation nml, Mood/affect nml. negative: Weakness, Sensory loss, Facial droop, Slurred/abnml speech, Depressed mood/affect - LABS Result Diagrams: 01/31/19 05:05 01/31/19 05:05 - SEPSIS Current Stage of Sepsis: Ruled out - FOLLOW UP Follow Up: discussed with about fall precaution such as slowly standup and safely slowly ambulation. you declined to initiate your insulin therapy. New medication glipizide is prescribed for your diabetes management, please followup your PCP for further management. two pain medications Fentanyl patch and [place] are prescribed for your pain control. you may followup your PCP in one week, followup your PCP for your diabetes management. Should your symptoms return or worse, you may present ER or call 911 for help. - TIME SPENT Time Spent in Discharge (Minutes): 60
[2019-01-31 15:35] VITALS: BP 114/96
== END 2019-01-31 15:33 | disposition home or self-care (01) ==
LOC: ED 13:32 → MS2 23:53
PROVIDERS: ADMIT Internal Medicine; ATTEND Nurse Practitioner Gerontology
DX: R55 Syncope and collapse (principal); S06.9X9A Unspecified intracranial injury with loss of consciousness of unspecified duration, initial encounter; S00.03XA Contusion of scalp, initial encounter; S22.42XA Multiple fractures of ribs, left side, initial encounter for closed fracture; W10.8XXA Fall (on) (from) other stairs and steps, initial encounter; Y92.019 Unspecified place in single-family (private) house as the place of occurrence of the external cause; I10 Essential (primary) hypertension; E11.65 Type 2 diabetes mellitus with hyperglycemia; E11.40 Type 2 diabetes mellitus with diabetic neuropathy, unspecified; N40.0 Benign prostatic hyperplasia without lower urinary tract symptoms; G47.30 Sleep apnea, unspecified; T38.3X6A Underdosing of insulin and oral hypoglycemic [antidiabetic] drugs, initial encounter; Z91.128 Patient's intentional underdosing of medication regimen for other reason; Z79.84 Long term (current) use of oral hypoglycemic drugs; Z86.73 Personal history of transient ischemic attack (TIA), and cerebral infarction without residual deficits
CPT/HCPCS: 36415; 70551; 71046; 71100; 73030; 73090; 80048; 80053; 83036; 83690; 83735; 84484; 85025; 93005; 93306; 99284; 99285; A9270; G0378; J1815; 80306

== ENCOUNTER 2019-10-02 09:31 | Outpatient (CLI) | payer MEDICARE, BC ==
[2019-10-02 13:58] LABS: CREATININE,URINE 117.1 mg/dL; MICROALBUM/CREATININE RATIO,UR 6.8 ug/mg (<30.0); MICROALBUMIN,URINE 0.8 mg/dL (0-300.0)
[2019-10-02 13:59] LABS: HB2 TOTAL 15.2 g/dL; HEMOGLOBIN A1C 0.92 g/dL; HEMOGLOBIN A1C % 7.7 % (4.6-6.2)
[2019-10-02 14:09] LABS: CREATININE 0.8 mg/dL (0.6-1.2)
== END 2019-10-02 23:59 | disposition home or self-care (01) ==
LOC: LAB.WCP 09:31
PROVIDERS: ATTEND Family Medicine
DX: E11.9 Type 2 diabetes mellitus without complications (principal)
CPT/HCPCS: 36415; 80048; 82043; 82570; 83036

== ENCOUNTER 2020-02-06 08:00 | Outpatient (CLI) | payer MEDICARE, BC ==
[2020-02-06 19:37] LABS: BASOPHILS # (AUTO) 0.1 10^3/uL (0.0-0.1); BASOPHILS % (AUTO) 0.8 %; EOSINOPHILS # (AUTO) 0.2 10^3/uL (0.0-0.7); EOSINOPHILS % (AUTO) 2.4 %; HGB - HEMOGLOBIN 14.2 g/dL (14.0-18.0); LYMPHOCYTES # (AUTO) 1.6 10^3/uL (1.5-3.5); LYMPHOCYTES % (AUTO) 21.9 %; MEAN CORPUSCULAR HEMOGLOBIN 30.3 pg (27.0-31.0); MEAN CORPUSCULAR HGB CONC 33.6 g/dL (32.0-36.0); MEAN CORPUSCULAR VOLUME 90.2 fL (80.0-94.0); MEAN PLATELET VOLUME 10.1 fL (7.4-11.4); MONOCYTES # (AUTO) 0.7 10^3/uL (0.0-1.0); MONOCYTES % (AUTO) 9.9 %; NEUTROPHILS # (AUTO) 4.6 10^3/uL (1.5-6.6); NEUTROPHILS % (AUTO) 64.6 %; PLT - PLATELET COUNT 243 10^3/uL (130-450); RED BLOOD COUNT 4.68 10^6/uL (4.70-6.10); RED CELL DISTRIBUTION WIDTH 13.8 % (12.0-15.0); WHITE BLOOD COUNT 7.1 x10^3/uL (4.8-10.8)
[2020-02-06 19:54] LABS: CALCIUM 9.4 mg/dL (8.5-10.3); CREATININE 0.8 mg/dL (0.6-1.2)
[2020-02-06 20:03] LABS: CREATININE,URINE 166.1 mg/dL; MICROALBUM/CREATININE RATIO,UR 14.4 ug/mg (<30.0); MICROALBUMIN,URINE 2.4 mg/dL (0-300.0)
[2020-02-06 20:07] LABS: HEMOGLOBIN A1c% 7.1 % (4.27-6.07)
== END 2020-02-06 23:59 ==
LOC: LAB.WCP 08:00
PROVIDERS: ATTEND Family Medicine
DX: E11.9 Type 2 diabetes mellitus without complications (principal); K51.90 Ulcerative colitis, unspecified, without complications
CPT/HCPCS: 36415; 80048; 82043; 82570; 83036; 85025

== ENCOUNTER 2020-02-20 13:12 | Emergency (ER) | payer MEDICARE, BC ==
[2020-02-20 13:42] LABS: BASOPHILS % (AUTO) 0.5 %; EOSINOPHILS # (AUTO) 0.1 10^3/uL (0.0-0.7); EOSINOPHILS % (AUTO) 1.8 %; HGB - HEMOGLOBIN 14.5 g/dL (14.0-18.0); LYMPHOCYTES # (AUTO) 1.2 10^3/uL (1.5-3.5); LYMPHOCYTES % (AUTO) 15.8 %; MEAN CORPUSCULAR HEMOGLOBIN 30.4 pg (27.0-31.0); MEAN CORPUSCULAR HGB CONC 34.2 g/dL (32.0-36.0); MEAN CORPUSCULAR VOLUME 88.9 fL (80.0-94.0); MEAN PLATELET VOLUME 10.2 fL (7.4-11.4); MONOCYTES # (AUTO) 0.6 10^3/uL (0.0-1.0); MONOCYTES % (AUTO) 8.4 %; NEUTROPHILS # (AUTO) 5.4 10^3/uL (1.5-6.6); NEUTROPHILS % (AUTO) 73.1 %; PLT - PLATELET COUNT 223 10^3/uL (130-450); RED BLOOD COUNT 4.77 10^6/uL (4.70-6.10); RED CELL DISTRIBUTION WIDTH 12.9 % (12.0-15.0); WHITE BLOOD COUNT 7.4 x10^3/uL (4.8-10.8)
--- NOTE | 2020-02-20 13:46 | ED Physician Documentation ---
PD HPI CHEST PAIN - Stated complaint Stated Complaint: CHEST PX - Chief complaint Chief Complaint: Cardiac - History obtained from History obtained from: Patient - History of Present Illness Timing - onset: Enter time (1000), Today Timing - onset during: Rest Timing - duration: Minutes Timing - details: Abrupt onset, Still present Quality: Pressure, Sharp, Pain Location: Left chest Radiation: Jaw, Neck, Left upper extremity Associated symptoms: Shortness of air, Diaphoresis, Nausea. No: Cough Similar symptoms before: Has not had sx before Recently seen: Clinic - Additional information Additional information: 74-year-old male with history of diabetes and hypertension has developed acute substernal chest pain with radiation into his jaw and neck and down his left arm associated with diaphoresis dyspnea and nausea. This happened about 10 AM and he is finally made his way to the emergency department and he continues to have some pain he rates it not as bad as it was to begin with. He is unable to rate his pain either at maximum or currently. He is a poor historian.He indicates he has been in to see the doctor a lot in the past year and he is not able to tell me why he has been in to see the doctor about anything. He does say that he is never had a heart attack previously. Review of Systems Constitutional: denies: Fever Eyes: denies: Decreased vision Ears: denies: Ear pain Nose: denies: Congestion Throat: denies: Sore throat Cardiac: reports: Chest pain / pressure. denies: Palpitations, Pedal edema, Calf pain Respiratory: reports: Dyspnea. denies: Cough, Wheezing GI: reports: Nausea. denies: Abdominal Pain, Vomiting : denies: Dysuria, Frequency PD PAST MEDICAL HISTORY - Past Medical History Cardiovascular: Hypertension Respiratory: Sleep apnea Neuro: Peripheral neuropathy, Other Endocrine/Autoimmune: Type 2 diabetes GI: GERD, Colon polyps, Ulcerative colitis : Benign prostate hypertrophy, Nocturia, Kidney stones Psych: Depression, Anxiety Musculoskeletal: Osteoarthritis Derm: None - Past Surgical History Past Surgical History: Yes General: Colonoscopy Ortho: Other - Present Medications Home Medications: Ambulatory Orders Medication Instructions Recorded Confirmed metFORMIN [Glucophage] 1,000 mg PO BIDWM 09/03/17 01/31/19 Atorvastatin Calcium 40 mg PO QPM 01/30/19 01/31/19 Gabapentin 300 - 600 mg PO TID PRN 01/30/19 01/31/19 Metoprolol Tartrate [Lopressor] 50 mg PO BID 01/30/19 01/31/19 Glipizide 10 mg PO DAILY #10 tablet 01/31/19 HYDROcod/ACETAM 5/325 [[place] 5/325] 1 - 2 ea PO Q6H PRN #15 tablet 01/31/19 fentaNYL [Fentanyl 25mcg patch] 1 each TD Q3D PRN #2 patch.td72 01/31/19 - Allergies Allergies/Adverse Reactions: Allergies Allergy/AdvReac Type Severity Reaction Status Date / Time oxycodone AdvReac Mild Hallucinati Verified 02/20/20 13:25 ons - Social History Does the pt smoke?: No Smoking Status: Never smoker Does the pt drink ETOH?: Yes Does the pt have substance abuse?: No - Immunizations Immunizations are current?: Yes - POLST Patient has POLST: No POLST Status: Limited Interventions (he's willing to have surgeries, abx, or blood transfusions but if has arrhythmia with or severe stoke with plegia, let him go) PD ED PE NORMAL - Vitals Vital signs reviewed: Yes (Hypertensive) - General General: No acute distress, Well developed/nourished, Other (There is a delay in execution of motor commands.) - HEENT HEENT: Atraumatic, PERRL, EOMI - Neck Neck: Supple, no meningeal sign, No bony TTP - Cardiac Cardiac: RRR, No murmur - Respiratory Respiratory: No respiratory distress, Clear bilaterally - Abdomen Abdomen: Normal bowel sounds, Soft, Non distended, No organomegaly, Other (Right upper quadrant tenderness to palpation) - Back Back: No CVA TTP, No spinal TTP - Derm Derm: Normal color, Warm and dry, No rash - Extremities Extremities: No deformity, No edema - 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, No motor deficit, No sensory deficit, Other (Speech is halting with a vague content) Eye Opening: Spontaneous Motor: Obeys Commands Verbal: Confused GCS Score: 14 - Psych Psych: Normal mood, Normal affect Results - Vitals Vitals: Vital Signs - 24 hr 02/20/20 02/20/20 13:25 13:34 Temperature 36.3 C L Heart Rate 56 L 55 L Respiratory 20 19 Rate Blood Pressure 192/97 H 157/117 H O2 Saturation 100 100 Oxygen O2 Source Room air - EKG (time done) 1318 Rate: Rate (enter#) (53) Rhythm: Sinus bradycardia Ischemia: ST elevation c/w ischemia (II,III, aVf consistent with acute inferior AL (STEMI)) Compare to prior EKG: Changed from prior EKG (SPT 01-29-[address] elevation is new) Computer interpretation: Agree with computer - Labs Labs: Laboratory Tests 02/20/20 13:27 WBC 7.4 RBC 4.77 Hgb 14.5 Hct 42.4 MCV 88.9 MCH 30.4 MCHC 34.2 RDW 12.9 Plt Count 223 MPV 10.2 Neut # (Auto) 5.4 Lymph # (Auto) 1.2 L [place] # (Auto) 0.6 Eos # (Auto) 0.1 Baso # (Auto) 0.0 Absolute Nucleated RBC 0.00 Nucleated RBC % 0.0 - Rads (name of study) chest Radiology: EMP read contemporaneously (No infiltrate, effusion or edema) PD MEDICAL DECISION MAKING - ED course Complexity details: reviewed old records, reviewed results, re-evaluated patient, considered differential, d/w patient ED course: 74-year-old male with acute onset of chest pain at 10 AM is a vague historian and gives history consistent with diaphoresis nausea radiation of pain and shortness of breath and arrives to the emergency department with an electrocardiogram showing ST elevation in inferior leads. He is administered heparin and Plavix and aspirin. Departure - Departure Disposition: 02 Transfer Acute Care Hosp Clinical Impression: STEMI (ST elevation myocardial infarction) Qualifiers: Involved coronary artery: unspecified coronary artery Qualified Code(s): I21.3 - ST elevation (STEMI) myocardial infarction of unspecified site
[2020-02-20] MEDS ORDERED: CLOPIDOGREL 300 MG TABLET PO ONE (13:52)
[2020-02-20] MEDS ORDERED: HEPARIN 5,000 UNIT/ML VIAL ONE (13:53)
[2020-02-20] MEDS ORDERED: HEPARIN 25000UNITS/500ML (D5W) 25,000 UNIT/500 ML BAG IV ONE (13:54)
[2020-02-20] MEDS ORDERED: HEPARIN 25,000 UNITS/500 ML PREMIX IV SCH (14:00)
[2020-02-20 14:02] VITALS: BP 196/91
[2020-02-20] MEDS ORDERED: ASPIRIN CHEW 81 MG TABLET PO STA (14:03)
[2020-02-20] MEDS ORDERED: CLOPIDOGREL 300 MG TABLET PO STA (14:03)
[2020-02-20 14:04] LABS: ALBUMIN 4.1 g/dL (3.2-5.5); ALBUMIN/GLOBULIN RATIO 1.2 (1.0-2.2); CALCIUM 9.4 mg/dL (8.5-10.3); CREATININE 1.7 mg/dL (0.6-1.2); TOTAL PROTEIN 7.6 g/dL (6.7-8.2)
--- NOTE | 2020-02-20 14:12 | XRAY Report ---
PROCEDURE: Chest 1 View X-Ray INDICATIONS: chest pain TECHNIQUE: One view of the chest was acquired. COMPARISON: 01/29/2019. FINDINGS: Surgical changes and devices: None. Lungs and pleura: There is hyperinflation of the lungs with slight flattening of the hemidiaphragms compatible with COPD. No acute consolidation. No pleural effusions or pneumothorax. Mediastinum: A large hiatal hernia is redemonstrated. Heart size is normal. Bones and chest wall: No suspicious bony lesions. Overlying soft tissues appear unremarkable. IMPRESSION: 1. Findings compatible with COPD redemonstrated. 2. No definite acute cardiopulmonary disease. 3. Large hiatal hernia. Reviewed by: Carlos Valencia MD on 02/20/2020 2:11 PM PDT Approved by: Carlos Valencia MD on 02/20/2020 2:11 PM PDT Station ID: [id number]
[2020-02-20] MEDS ORDERED: HEPARIN 25000UNITS/500ML (D5W) 25,000 UNIT/500 ML BAG IV SCH (15:00)
== END 2020-02-20 14:10 | disposition short-term general hospital (02) ==
LOC: ED 13:12
DX: I21.19 ST elevation (STEMI) myocardial infarction involving other coronary artery of inferior wall (principal); I10 Essential (primary) hypertension; E11.42 Type 2 diabetes mellitus with diabetic polyneuropathy; Z79.84 Long term (current) use of oral hypoglycemic drugs
CPT/HCPCS: 36415; 71045; 80053; 83690; 84484; 85025; 93005; 96374; 99284; 99285; A9270

== ENCOUNTER 2020-02-20 14:00 | Outpatient (CLI) | payer MEDICARE, BC | END 2020-02-20 14:01 | disposition short-term general hospital (02) | LOC: EMS 14:00 | PROVIDERS: ATTEND Surgery | DX: I21.19 ST elevation (STEMI) myocardial infarction involving other coronary artery of inferior wall (principal) | CPT/HCPCS: A0425; A0426 ==

== ENCOUNTER 2020-09-01 10:24 | Outpatient (CLI) | payer MEDICARE, BC ==
[2020-09-01 18:25] LABS: BASOPHILS % (AUTO) 0.6 %; EOSINOPHILS # (AUTO) 0.1 10^3/uL (0.0-0.7); EOSINOPHILS % (AUTO) 1.6 %; HCT - HEMATOCRIT 43.1 % (42.0-52.0); HGB - HEMOGLOBIN 14.4 g/dL (14.0-18.0); LYMPHOCYTES # (AUTO) 1.4 10^3/uL (1.5-3.5); LYMPHOCYTES % (AUTO) 19.9 %; MEAN CORPUSCULAR HEMOGLOBIN 30.3 pg (27.0-31.0); MEAN CORPUSCULAR HGB CONC 33.4 g/dL (32.0-36.0); MEAN CORPUSCULAR VOLUME 90.5 fL (80.0-94.0); MEAN PLATELET VOLUME 10.6 fL (7.4-11.4); MONOCYTES # (AUTO) 0.5 10^3/uL (0.0-1.0); MONOCYTES % (AUTO) 6.8 %; NEUTROPHILS # (AUTO) 4.8 10^3/uL (1.5-6.6); NEUTROPHILS % (AUTO) 70.8 %; PLT - PLATELET COUNT 191 10^3/uL (130-450); RED BLOOD COUNT 4.76 10^6/uL (4.70-6.10); RED CELL DISTRIBUTION WIDTH 13.3 % (12.0-15.0); WHITE BLOOD COUNT 6.8 x10^3/uL (4.8-10.8)
[2020-09-01 18:30] LABS: CREATININE,URINE 132.1 mg/dL; MICROALBUM/CREATININE RATIO,UR 44.7 ug/mg (<30.0); MICROALBUMIN,URINE 5.9 mg/dL (0-300.0)
[2020-09-01 18:43] LABS: ALBUMIN 4.2 g/dL (3.2-5.5); ALBUMIN/GLOBULIN RATIO 1.6 (1.0-2.2); ALKALINE PHOSPHATASE 81 IU/L (42-121); ALT ALANINE AMINOTRANSFERASE 19 IU/L (10-60); AST ASPARTATE AMINOTRANSFERASE 18 IU/L (10-42); BILIRUBIN,TOTAL 0.9 mg/dL (0.2-1.0); BUN - BLOOD UREA NITROGEN 17 mg/dL (6-20); CARBON DIOXIDE - CO2 25 mmol/L (21-32); CHLORIDE 106 mmol/L (101-111); CHOL/HDL RATIO 2.1 (<5.0); CHOLESTEROL 101 mg/dL; CREATININE 0.9 mg/dL (0.6-1.2); GFR - MDRD 82 (>89); GLUCOSE 202 mg/dL (70-100); HDL CHOLESTEROL 47 mg/dL; LDL CHOLESTEROL,CALCULATED 38 mg/dL; LDL/HDL RATIO 0.8 (<3.6); POTASSIUM 4.1 mmol/L (3.5-5.0); SODIUM 139 mmol/L (135-145); TOTAL PROTEIN 6.9 g/dL (6.7-8.2); TRIGLYCERIDES 79 mg/dL; VLDL CHOLESTEROL 16 mg/dL
[2020-09-01 18:51] LABS: THYROID STIMULATING HORMONE 1.48 uIU/mL (0.34-5.60)
[2020-09-01 20:25] LABS: ESTIMATED AVERAGE GLUCOSE 143 mg/dL (70-100); HEMOGLOBIN A1c% 6.6 % (4.27-6.07)
== END 2020-09-01 23:59 | disposition home or self-care (01) ==
LOC: LAB.WCP 10:24
PROVIDERS: ATTEND Family Medicine
DX: E11.9 Type 2 diabetes mellitus without complications (principal); I25.10 Atherosclerotic heart disease of native coronary artery without angina pectoris
CPT/HCPCS: 36415; 80053; 80061; 82043; 82570; 83036; 83721; 84443; 85025

== ENCOUNTER 2020-11-30 08:00 | Outpatient (CLI) | payer MEDICARE, BC ==
[2020-11-30 18:31] LABS: CALCIUM 8.8 mg/dL (8.5-10.3); CREATININE 1.2 mg/dL (0.6-1.2); POTASSIUM 4.1 mmol/L (3.5-5.0)
== END 2020-11-30 23:59 | disposition home or self-care (01) ==
LOC: LAB.WCP 08:00
PROVIDERS: ATTEND Family Medicine
DX: I10 Essential (primary) hypertension (principal); R60.0 Localized edema
CPT/HCPCS: 36415; 80048

== ENCOUNTER 2021-03-18 10:06 | Outpatient (CLI) | payer MEDICARE, BC ==
[2021-03-18 12:25] LABS: CREATININE 0.9 mg/dL (0.6-1.2); POTASSIUM 4.4 mmol/L (3.5-5.0)
[2021-03-18 12:40] LABS: ESTIMATED AVERAGE GLUCOSE 174 mg/dL (70-100); HEMOGLOBIN A1c% 7.7 % (4.27-6.07)
== END 2021-03-18 23:59 | disposition home or self-care (01) ==
LOC: LAB.WCP 10:06
PROVIDERS: ATTEND Internal Medicine
DX: E11.42 Type 2 diabetes mellitus with diabetic polyneuropathy (principal)
CPT/HCPCS: 36415; 80048; 83036

== ENCOUNTER 2021-03-29 16:57 | Outpatient (CLI) | payer MEDICARE, BC | END 2021-03-29 16:58 | disposition critical access hospital (66) | LOC: EMS 16:57 | DX: S09.93XA Unspecified injury of face, initial encounter (principal); R41.0 Disorientation, unspecified; W18.39XA Other fall on same level, initial encounter; Y93.01 Activity, walking, marching and hiking; Y92.009 Unspecified place in unspecified non-institutional (private) residence as the place of occurrence of the external cause; R53.1 Weakness; R32 Unspecified urinary incontinence | CPT/HCPCS: A0425; A0429 ==

== ENCOUNTER 2021-03-29 17:10 | Emergency (ER) | payer MEDICARE, BC ==
--- NOTE | 2021-03-29 18:16 | ED Physician Documentation ---
History of Present Illness - Stated complaint Stated Complaint: HEAD LAC - Chief complaint Chief Complaint: Trauma Hd/Nk - History obtained from History obtained from: Patient, EMS - History of Present Illness Pain level max: 5 Pain level now: 5 - Additonal information Additional information: Patient is a 75-year-old male who is brought in by EMS today. He reportedly suffered a ground-level fall and could not get up off the ground. Has a laceration to the forehead. Patient states that he walked outside to his yard when he tripped fell and struck his head. Does not believe he lost consciousness. States his head and face are sore. No numbness or tingling. No low back pain. No hip pain or knee pain. Bite feels normal Review of Systems Ten Systems: 10 systems reviewed and negative Constitutional: denies: Fever, Chills Respiratory: denies: Cough GI: denies: Nausea, Vomiting, Diarrhea Skin: denies: Rash Musculoskeletal: denies: Neck pain, Back pain Neurologic: reports: Confused (Per EMS patient was initially confused on scene). denies: Syncope, Seizure PD PAST MEDICAL HISTORY - Past Medical History Cardiovascular: Hypertension Respiratory: Sleep apnea Neuro: Peripheral neuropathy, Other Endocrine/Autoimmune: Type 2 diabetes GI: GERD, Colon polyps, Ulcerative colitis : Benign prostate hypertrophy, Nocturia, Kidney stones Psych: Depression, Anxiety Musculoskeletal: Osteoarthritis Derm: None - Past Surgical History Past Surgical History: Yes General: Colonoscopy Ortho: Other - Present Medications Home Medications: Ambulatory Orders Medication Instructions Recorded Confirmed metFORMIN [Glucophage] 1,000 mg PO BIDWM 09/03/17 01/31/19 Atorvastatin Calcium 40 mg PO QPM 01/30/19 01/31/19 Gabapentin 300 - 600 mg PO TID PRN 01/30/19 01/31/19 Metoprolol Tartrate [Lopressor] 50 mg PO BID 01/30/19 01/31/19 HYDROcod/ACETAM 5/325 [[place] 5/325] 1 - 2 ea PO Q6H PRN #15 tablet 01/31/19 fentaNYL [Fentanyl 25mcg patch] 1 each TD Q3D PRN #2 patch.td72 01/31/19 glipiZIDE [Glipizide] 10 mg PO DAILY #10 tablet 01/31/19 - Allergies Allergies/Adverse Reactions: Allergies Allergy/AdvReac Type Severity Reaction Status Date / Time oxycodone AdvReac Mild Hallucinati Verified 03/29/21 17:15 ons - Social History Does the pt smoke?: No Smoking Status: Never smoker Does the pt drink ETOH?: Yes Does the pt have substance abuse?: No - Immunizations Immunizations are current?: Yes - POLST Patient has POLST: No POLST Status: Limited Interventions (he's willing to have surgeries, abx, or blood transfusions but if has arrhythmia with or severe stoke with plegia, let him go) PD ED PE NORMAL - Vitals Vital signs reviewed: Yes - General General: Alert and oriented X 3, No acute distress, Well developed/nourished - HEENT HEENT: Atraumatic (Laceration to the left eyebrow. No palpable skull fractures. Bruising and swelling in the left periorbital region.), PERRL, EOMI, Ears normal, Moist mucous membranes, Pharynx benign, Other (Pupils are normal. 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, No motor deficit, No sensory deficit, Normal speech Eye Opening: Spontaneous Motor: Obeys Commands Verbal: Oriented GCS Score: 15 - Psych Psych: Normal mood, Normal affect Results - Vitals Vitals: Vital Signs - 24 hr 03/29/21 03/29/21 03/29/21 17:15 17:34 19:34 Temperature 36.8 C 36.4 C L Heart Rate 69 69 62 Respiratory 18 18 15 Rate Blood Pressure 188/104 H 175/80 H 195/94 H O2 Saturation 100 97 100 03/29/21 20:35 Temperature 36.5 C Heart Rate 71 Respiratory 20 Rate Blood Pressure 155/85 H O2 Saturation 98 Oxygen O2 Source Room air - EKG (time done) 1753 Rate: Rate (enter#) (69) Rhythm: NSR [place]: Normal Intervals: Normal PA Ischemia: Q waves (III), Non specific changes - Labs Labs: Laboratory Tests 03/29/21 03/29/21 03/29/21 18:31 18:31 18:31 WBC 6.6 RBC 4.69 L Hgb 14.1 Hct 40.9 L MCV 87.2 MCH 30.1 MCHC 34.5 RDW 12.8 Plt Count 181 MPV 9.8 Neut # (Auto) 4.7 Lymph # (Auto) 1.2 L [place] # (Auto) 0.6 Eos # (Auto) 0.1 Baso # (Auto) 0.0 Absolute Nucleated RBC 0.00 Nucleated RBC % 0.0 Sodium 139 Potassium 3.8 Chloride 106 Carbon Dioxide 25 Anion Gap 8.0 BUN 16 Creatinine 0.8 Estimated GFR (MDRD) 94 Glucose 125 H Calcium 9.1 Total Bilirubin 0.8 AST 14 ALT 10 Alkaline Phosphatase 77 Troponin I High Sens 5.8 Total Protein 6.9 Albumin 3.9 Globulin 3.0 Albumin/Globulin Ratio 1.3 Lipase 28 Ethyl Alcohol < 5.0 - Rads (name of study) Head CT Radiology: Final report received, EMP read contemporaneously, See rad report (No acute intracranial disease process.) Maxillofacial Ct Radiology: Final report received, EMP read contemporaneously, See rad report (No fracture.) Cervical spine CT Radiology: Final report received, EMP read contemporaneously, See rad report (No fracture.) Procedures - Laceration (location) L eyebrow Length in cm: 1.5 Wound type: Curved, Irregular, Into subcut fat, Clean Neurovascular status: Sensory intact, Motor intact, Vascular intact Anesthesia: LET, Lidocaine 1% with epi Wound preparation: Irrigated copiously NS, Wound explored, To the base Skin layer closure: Nylon, Running, Size #-0 - enter number (5), Sutures - enter # (2) Other: Patient tolerated well, No complications, Neurovascular intact, Dressing applied, Tetanus UTD PD MEDICAL DECISION MAKING - ED course Complexity details: reviewed results, re-evaluated patient, considered differential, d/w patient ED course: Eyebrow laceration was repaired. Tolerated well. Does have left periorbital swelling and bruising. Pupils are normal. No hyphema. Vision is normal. Patient distinctly remembers falling and denies syncope. He does not believe he lost consciousness but it is not 100% sure of this. No acute findings on head CT, cervical spine CT or maxillofacial CT. No significant lab abnormalities. No acute findings on telemetry. We will have him follow-up with his doctor for further care. Patient request to go home at this time. Ambulating without difficulty here. Patient counseled regarding signs and symptoms for which I believe and urgent re-evaluation would be necessary. Patient with good understanding of and agreement to plan and is comfortable going home at this time This document was made in part using voice recognition software. While efforts are made to proofread this document, sound alike and grammatical errors may occur. Departure - Departure Disposition: Home, Self Care Clinical Impression: Fall Qualifiers: Encounter type: initial encounter Qualified Code(s): W19.XXXA - Unspecified fall, initial encounter Head injury Qualifiers: Encounter type: initial encounter Qualified Code(s): S09.90XA - Unspecified injury of head, initial encounter Facial laceration Qualifiers: Encounter type: initial encounter Qualified Code(s): S01.81XA - Laceration without foreign body of other part of head, initial encounter Condition: Good Instructions: ED Head Injury Closed, ED Laceration Facial Sutr Tape Follow-Up: Salvador Juan MD [Primary Care Provider] - Within 1 week Comments: Thankfully your head CT, CT scan of your face and CT scan of your neck do not show any fractures. The 2 stitches will need to be removed with your doctor in about 1 week. Please return if you worsen. You can use Motrin or Tylenol as needed for pain. Ice will help with the swelling on your face. Change the outer bandages daily. Return if you notice redness, swelling or drainage from the wound. Keep the wound clean. Discharge Date/Time: 03/29/21 20:45
[2021-03-29 18:38] LABS: BASOPHILS % (AUTO) 0.6 %; EOSINOPHILS # (AUTO) 0.1 10^3/uL (0.0-0.7); EOSINOPHILS % (AUTO) 1.4 %; HCT - HEMATOCRIT 40.9 % (42.0-52.0); HGB - HEMOGLOBIN 14.1 g/dL (14.0-18.0); LYMPHOCYTES # (AUTO) 1.2 10^3/uL (1.5-3.5); LYMPHOCYTES % (AUTO) 17.8 %; MEAN CORPUSCULAR HEMOGLOBIN 30.1 pg (27.0-31.0); MEAN CORPUSCULAR HGB CONC 34.5 g/dL (32.0-36.0); MEAN CORPUSCULAR VOLUME 87.2 fL (80.0-94.0); MEAN PLATELET VOLUME 9.8 fL (7.4-11.4); MONOCYTES # (AUTO) 0.6 10^3/uL (0.0-1.0); MONOCYTES % (AUTO) 9.2 %; NEUTROPHILS # (AUTO) 4.7 10^3/uL (1.5-6.6); NEUTROPHILS % (AUTO) 70.7 %; PLT - PLATELET COUNT 181 10^3/uL (130-450); RED BLOOD COUNT 4.69 10^6/uL (4.70-6.10); RED CELL DISTRIBUTION WIDTH 12.8 % (12.0-15.0); WHITE BLOOD COUNT 6.6 x10^3/uL (4.8-10.8)
--- NOTE | 2021-03-29 18:45 | CT Report ---
PROCEDURE: HEAD WO INDICATIONS: fall, head injury TECHNIQUE: Noncontrast 4.5 mm thick angled axial sections acquired from the foramen magnum to the vertex. For r adiation dose reduction, the following was used: automated exposure control, adjustment of mA and/or kV according to patient size. COMPARISON: 03/31/2018 and 11/07/2017. FINDINGS: Image quality: Excellent. CSF spaces: Basal cisterns are patent. No extra-axial fluid collections. The ventricles are symmet therese in size and shape. Brain: No intracranial bleeds or masses. There is cerebral volume loss for age, with resultant vent ricular and sulcal prominence. There are periventricular and deep white matter chronic small vessel ischemic changes. Small chronic right basal ganglia lacunar infarcts. There is intracranial internal carotid artery and vertebral artery atherosclerosis. Skull and face: Calvarium and visualized facial bones appear intact, without suspicious lesions. La rge left frontal scalp/left periorbital facial soft tissue hematoma noted. Sinuses: Visualized sinuses and mastoids are clear. IMPRESSION: No acute intracranial disease process. Reviewed by: Clara Boudreaux MD, PhD on 03/29/2021 5:44 PM AKDT Approved by: Clara Boudreaux MD, PhD on 03/29/2021 5:44 PM AKDT Station ID: [id number]
--- NOTE | 2021-03-29 18:50 | CT Report ---
PROCEDURE: CERVICAL SPINE WO INDICATIONS: fall, neck pain TECHNIQUE: Noncontrast 3 mm thick sections acquired from the skull base to the T4 level. Sagittal and coronal r eformats were then constructed. For radiation dose reduction, the following was used: automated exp osure control, adjustment of mA and/or kV according to patient size. COMPARISON: None. FINDINGS: Image quality: Excellent. Bones: No fractures or dislocations. Visualized superior ribs are intact. Spine degenerative disc d isease and facet arthropathy are noted. Soft tissues: Prevertebral soft tissues are normal in thickness. No paravertebral hematomas. No ap ical pneumothoraces. IMPRESSION: No fracture. No acute osseous lesion. If there is continued clinical concern for pathology, then MRI should be considered for further evaluation. Reviewed by: Clara Boudreaux MD, PhD on 03/29/2021 5:49 PM YUE Approved by: Clara Boudreaux MD, PhD on 03/29/2021 5:49 PM YUE Station ID: [id number]
[2021-03-29 18:51] LABS: ALBUMIN 3.9 g/dL (3.2-5.5); ALBUMIN/GLOBULIN RATIO 1.3 (1.0-2.2); ALKALINE PHOSPHATASE 77 IU/L (42-121); ALT ALANINE AMINOTRANSFERASE 10 IU/L (10-60); AST ASPARTATE AMINOTRANSFERASE 14 IU/L (10-42); BILIRUBIN,TOTAL 0.8 mg/dL (0.2-1.0); BUN - BLOOD UREA NITROGEN 16 mg/dL (6-20); CALCIUM 9.1 mg/dL (8.5-10.3); CARBON DIOXIDE - CO2 25 mmol/L (21-32); CHLORIDE 106 mmol/L (101-111); CREATININE 0.8 mg/dL (0.6-1.2); ETOH - ETHANOL < 5.0 mg/dL; GFR - MDRD 94 (>89); GLUCOSE 125 mg/dL (70-100); LIPASE 28 U/L (22-51); POTASSIUM 3.8 mmol/L (3.5-5.0); SODIUM 139 mmol/L (135-145); TOTAL PROTEIN 6.9 g/dL (6.7-8.2)
--- NOTE | 2021-03-29 18:58 | CT Report ---
PROCEDURE: MAXILLOFACIAL WO INDICATIONS: fall, facial pain/lacerations TECHNIQUE: Noncontrast 1.5 mm thick axial images acquired from the mandible through the frontal sinuses, with co savita and sagittal reformatting. For radiation dose reduction, the following was used: automated ex posure control, adjustment of mA and/or kV according to patient size. COMPARISON: None. FINDINGS: Image quality: Excellent. Bones and teeth: Orbital blanton are intact. Sinus blanton show no fracture or deformity. Nasal bones and septum are intact. Visualized portions of the mandible demonstrate no fractures or subluxation. Zygomatic arches are intact. Pterygoid plates are intact. Visualized portions of the skull base an d auditory canals are intact. Multiple dental caries are noted. Multiple absent teeth noted. Sinuses: Mild mucosal thickening noted in the left maxillary sinus. Small mucous retention cyst versu s polyp noted in the right maxillary sinus. Mastoid air cells are aerated. Soft tissues: Large left periorbital/left scalp hematoma noted. No enlarged lymph nodes. No soft tis teressa lacerations or debris. Vascular: Visualized vascular structures appear normal in the absence of contrast. Atherosclerotic c alcifications noted in the cavernous and clinoid segments of the internal carotid arteries bilaterall y. Bony vascular foramina and canals are intact. IMPRESSION: No fracture. Reviewed by: Clara Boudreaux MD, PhD on 03/29/2021 5:57 PM YUE Approved by: Clara Boudreaux MD, PhD on 03/29/2021 5:57 PM [id number] Station ID: [id number]
[2021-03-29] MEDS ORDERED: LIDOCAINE-EPINEPH-TETRACAINE 3 ML SYRINGE TOP STA (19:27)
[2021-03-29] MEDS ORDERED: LIDOCAINE 1%-EPI 1:100000 20 ML MDV SUBQ STA (19:48)
[2021-03-29] MEDS ORDERED: BACITRACIN ZINC OINT 1 PACKET TOP STA (20:05)
[2021-03-29 20:36] VITALS: BP 155/85
== END 2021-03-29 20:45 | disposition home or self-care (01) ==
LOC: ED 17:10
DX: S09.90XA Unspecified injury of head, initial encounter (principal); S01.112A Laceration without foreign body of left eyelid and periocular area, initial encounter; W01.0XXA Fall on same level from slipping, tripping and stumbling without subsequent striking against object, initial encounter; Y92.007 Garden or yard of unspecified non-institutional (private) residence as the place of occurrence of the external cause; I10 Essential (primary) hypertension; E11.42 Type 2 diabetes mellitus with diabetic polyneuropathy; Z79.84 Long term (current) use of oral hypoglycemic drugs
CPT/HCPCS: 12011; 36415; 70450; 70486; 72125; 80053; 83690; 84484; 85025; 93005; 99283; 99284; A9270; G0480; 80320

== ENCOUNTER 2021-04-03 12:19 | Emergency (ER) | payer MEDICARE, BC ==
--- NOTE | 2021-04-03 13:05 | ED Physician Documentation ---
PD HPI HEAD INJURY - Stated complaint Stated Complaint: VOMITTING/HEADACHE - Chief complaint Chief Complaint: Neuro - History obtained from History obtained from: Patient - History of Present Illness Mechanism of head injury: Fell Where head injury occurred: Home Timing - onset: How many days ago (5) Location of injury: Left, Front Quality of pain: Pain Associated symptoms: AMS, Nausea / vomiting, Neck pain Symptoms improve with: Rest Symptoms worsen with: Palpation, Movement Contributing factors: No: Anticoagulated Similar symptoms before: Diagnosis (concussion) Recently seen: Emergency Dept - Additional information Additional information: 75-year-old male with advancing cognitive decline has had a ground-level fall outside of his home 5 days ago. He did not have loss of consciousness and he was evaluated here by Dr. Caballero and CT of the head and neck were obtained is laceration was sutured and he was discharged home. He indicates that he has developed vomiting beginning in the middle of the night and he has had uncontrolled vomiting throughout the night and has a worsening headache. Review of Systems Constitutional: denies: Fever Eyes: denies: Decreased vision Ears: denies: Ear pain Nose: denies: Congestion Throat: denies: Sore throat Cardiac: denies: Chest pain / pressure, Palpitations Respiratory: denies: Dyspnea, Cough GI: reports: Nausea, Vomiting. denies: Abdominal Pain : denies: Dysuria, Frequency Skin: denies: Rash Musculoskeletal: reports: Neck pain. denies: Back pain, Extremity pain Neurologic: reports: Confused, Headache, Head injury. denies: Generalized weakness, Focal weakness, Numbness PD PAST MEDICAL HISTORY - Past Medical History Cardiovascular: Hypertension Respiratory: Sleep apnea Neuro: Peripheral neuropathy, Other Endocrine/Autoimmune: Type 2 diabetes GI: GERD, Colon polyps, Ulcerative colitis : Benign prostate hypertrophy, Nocturia, Kidney stones Psych: Depression, Anxiety Musculoskeletal: Osteoarthritis Derm: None - Past Surgical History Past Surgical History: Yes General: Colonoscopy Ortho: Other - Present Medications Home Medications: Ambulatory Orders Medication Instructions Recorded Confirmed metFORMIN [Glucophage] 1,000 mg PO BIDWM 09/03/17 01/31/19 Atorvastatin Calcium 40 mg PO QPM 01/30/19 01/31/19 Gabapentin 300 - 600 mg PO TID PRN 01/30/19 01/31/19 Metoprolol Tartrate [Lopressor] 50 mg PO BID 01/30/19 01/31/19 HYDROcod/ACETAM 5/325 [[place] 5/325] 1 - 2 ea PO Q6H PRN #15 tablet 01/31/19 fentaNYL [Fentanyl 25mcg patch] 1 each TD Q3D PRN #2 patch.td72 01/31/19 glipiZIDE [Glipizide] 10 mg PO DAILY #10 tablet 01/31/19 - Allergies Allergies/Adverse Reactions: Allergies Allergy/AdvReac Type Severity Reaction Status Date / Time oxycodone AdvReac Mild Hallucinati Verified 04/03/21 12:40 ons - Social History Does the pt smoke?: No Smoking Status: Never smoker Does the pt drink ETOH?: Yes Does the pt have substance abuse?: No - Immunizations Immunizations are current?: Yes - POLST Patient has POLST: No POLST Status: Limited Interventions (he's willing to have surgeries, abx, or blood transfusions but if has arrhythmia with or severe stoke with plegia, let him go) PD ED PE NORMAL - Vitals Vital signs reviewed: Yes - General General: No acute distress, Well developed/nourished, Other (ecchymosis to left maritza-orbital prefers to lay with eyes closed obeys commands has speech latency and delay in execution of motor commands. ) - HEENT HEENT: PERRL, EOMI, Other (ecchymosis and tenderness to the left maritza-orbital and cheek. ) - Neck Neck: Supple, no meningeal sign, No bony TTP, Other (able to touch chin to chest. 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6 L [place] # (Auto) 0.3 Eos # (Auto) 0.0 Baso # (Auto) 0.0 Absolute Nucleated RBC 0.00 Nucleated RBC % 0.0 Sodium 138 Potassium 4.1 Chloride 103 Carbon Dioxide 26 Anion Gap 9.0 BUN 15 Creatinine 1.1 Estimated GFR (MDRD) 65 L Glucose 172 H Calcium 8.7 Total Bilirubin 1.0 AST 16 ALT 13 Alkaline Phosphatase 72 Total Protein 6.8 Albumin 4.2 Globulin 2.6 Albumin/Globulin Ratio 1.6 Lipase 25 - Rads (name of study) CT head Radiology: Prelim report reviewed (Impression: No intracranial hemorrhage is seen. No significant intracranial abnormality is seen. Age-appropriate brain parenchymal volume loss and chronic small vessel ischemic change can be seen), EMP read indepedently, See rad report PD MEDICAL DECISION MAKING - ED course Complexity details: reviewed results, re-evaluated patient, considered differential, d/w patient, d/w family ED course: 75-year-old male with some early cognitive decline has had a head injury 5 days ago and last night woke up with nausea vomiting and a headache. He has a severe headache and has a history of migraine. Today we rescanned the patient's head without signs of intracranial hemorrhage. We are now undertaking treatment of migraine headache with a migraine cocktail consisting of Compazine Benadryl Toradol dexamethasone and saline. He has improvement in treatment. Departure - Departure Disposition: 01 Home, Self Care Clinical Impression: Migraine Qualifiers: Migraine type: without aura Status migrainosus presence: without status migrainosus Intractability: not intractable Qualified Code(s): G43.009 - Migraine without aura, not intractable, without status migrainosus Condition: Stable Instructions: ED Headache Migraine Follow-Up: [facility] [Provider Group] Discharge Date/Time: 04/03/21 16:03
[2021-04-03] MEDS ORDERED: SODIUM CHLORIDE 0.9% 1,000 ML IV STA (13:22)
[2021-04-03] MEDS ORDERED: ONDANSETRON 4 MG/2 ML VIAL IVP STA (13:22)
[2021-04-03 13:28] LABS: BASOPHILS % (AUTO) 0.3 %; HCT - HEMATOCRIT 43.1 % (42.0-52.0); HGB - HEMOGLOBIN 14.5 g/dL (14.0-18.0); LYMPHOCYTES # (AUTO) 0.6 10^3/uL (1.5-3.5); LYMPHOCYTES % (AUTO) 6.9 %; MEAN CORPUSCULAR HEMOGLOBIN 29.7 pg (27.0-31.0); MEAN CORPUSCULAR HGB CONC 33.6 g/dL (32.0-36.0); MEAN CORPUSCULAR VOLUME 88.1 fL (80.0-94.0); MEAN PLATELET VOLUME 10.2 fL (7.4-11.4); MONOCYTES # (AUTO) 0.3 10^3/uL (0.0-1.0); MONOCYTES % (AUTO) 3.6 %; NEUTROPHILS # (AUTO) 8.2 10^3/uL (1.5-6.6); NEUTROPHILS % (AUTO) 88.9 %; PLT - PLATELET COUNT 219 10^3/uL (130-450); RED BLOOD COUNT 4.89 10^6/uL (4.70-6.10); RED CELL DISTRIBUTION WIDTH 12.8 % (12.0-15.0); WHITE BLOOD COUNT 9.2 x10^3/uL (4.8-10.8)
--- NOTE | 2021-04-03 13:37 | CT Report ---
PROCEDURE: HEAD WO INDICATIONS: trauma, confusion vomiting TECHNIQUE: Noncontrast 4.5 mm thick angled axial sections acquired from the foramen magnum to the vertex. For r adiation dose reduction, the following was used: automated exposure control, adjustment of mA and/or kV according to patient size. COMPARISON: 03/29/2021, 03/31/2018, 11/07/2017 FINDINGS: Image quality: Excellent. CSF spaces: Basal cisterns are patent. No extra-axial fluid collections. Ventricles are normal in size and shape. Brain: No midline shift. No intracranial masses or hemorrhage. Mcneil-white matter interface is norm al. Skull and face: Calvarium and visualized facial bones are intact, without suspicious lesions. Sinuses: Visualized sinuses and mastoids are clear. IMPRESSION: No intracranial hemorrhage is seen. No significant intracranial abnormality is seen. Age-appropriate brain parenchymal volume loss and chronic small vessel ischemic change can be seen. Reviewed by: Jesse Zhang MD on 04/03/2021 12:36 PM [place] Approved by: Jesse Zhang MD on 04/03/2021 12:36 PM [place] Station ID: [id number]
[2021-04-03 13:38] LABS: ALBUMIN 4.2 g/dL (3.2-5.5); ALBUMIN/GLOBULIN RATIO 1.6 (1.0-2.2); CALCIUM 8.7 mg/dL (8.5-10.3); CREATININE 1.1 mg/dL (0.6-1.2); POTASSIUM 4.1 mmol/L (3.5-5.0); TOTAL PROTEIN 6.8 g/dL (6.7-8.2)
[2021-04-03] MEDS ORDERED: PROCHLORPERAZINE 10 MG/2 ML VIAL IVP STA (13:52)
[2021-04-03] MEDS ORDERED: diphenhydrAMINE INJ 50 MG/ML VIAL IVP STA (13:52)
[2021-04-03] MEDS ORDERED: DEXAMETHASONE 10 MG/ML VIAL IVP STA (13:52)
[2021-04-03] MEDS ORDERED: KETOROLAC 30 MG/ML VIAL IVP STA (13:52)
[2021-04-03 15:43] VITALS: BP 182/89
== END 2021-04-03 16:03 | disposition home or self-care (01) ==
LOC: ED 12:19
DX: G43.009 Migraine without aura, not intractable, without status migrainosus (principal)
CPT/HCPCS: 36415; 70450; 80053; 83690; 85025; 96374; 96375; 99284; 99285; J1200

== ENCOUNTER 2021-04-10 20:27 | Outpatient (CLI) | payer MEDICARE, BC | END 2021-04-10 20:28 | disposition critical access hospital (66) | LOC: EMS 20:27 | DX: R41.0 Disorientation, unspecified (principal); R47.81 Slurred speech | CPT/HCPCS: A0425; A0429 ==

== ENCOUNTER 2021-04-10 20:35 | Observation (INO) | payer MEDICARE, BC ==
--- NOTE | 2021-04-10 21:03 | ED Physician Documentation ---
PD HPI FOCAL NEURO - Stated complaint Stated Complaint: CONFUSION; SLURRED SPEECH - Chief complaint Chief Complaint: Neuro - History obtained from History obtained from: Patient, Family (spouse) - History of Present Illness Timing - onset: Enter time (noticed at 19:45 although last known normal is 13:30 (see narrative, below)), Today Severity of deficit: Moderate Associated symptoms: No: Headache, Seizure, Syncope, Fall, Head injury, Chest pain, Fever Baseline status: positive: Mildly confused Recently seen: Emergency Dept (T+R 03/29/21, fell and had CT head/neck/facial bones, facial laceration repaired. Returned 04/03/21 due to vomiting, headache, CTH performed without acute/concerning findings) - Additional information Additional information: BIBA. is in ED at bedside and provides HPI (patient contradicts her information, says he did not have confusion today). Per , patient took a nap at 1:30 PM today, awoke at approximately 7:45 PM this evening. He walked out into the living room where there were multiple family members and he didn't recognize any of them ( did not ascertain whether he recognized her because she was already very concerned with his not recognizing anyone in the family, which she says is entirely abnormal for him). says he appeared confused, "just staring" (per ) and when he did try to talk, she describes word salad (she understood the words he was saying but that it was gibberish). The speech abnormality has resolved [employer]ING CLE[employer]ER. He is still exhibiting mild confusion on my exam, but says this is his baseline. Review of Systems Constitutional: denies: Fever Eyes: reports: Reviewed and negative Cardiac: reports: Reviewed and negative Respiratory: reports: Reviewed and negative GI: reports: Reviewed and negative : denies: Dysuria Neurologic: reports: Difficulty speaking (resolved [employer]ING [employer]ER), Confused, Altered mental status. denies: Generalized weakness, Focal weakness, Numbness, Syncope, Seizure, Unresponsive, LOC PD PAST MEDICAL HISTORY - Past Medical History Past Medical History: Yes Cardiovascular: Hypertension Respiratory: Sleep apnea Neuro: Peripheral neuropathy, Other Endocrine/Autoimmune: Type 2 diabetes GI: GERD, Colon polyps, Ulcerative colitis : Benign prostate hypertrophy, Nocturia, Kidney stones Psych: Depression, Anxiety Musculoskeletal: Osteoarthritis Derm: None - Past Surgical History Past Surgical History: Yes General: Colonoscopy Ortho: Other - Present Medications Home Medications: Ambulatory Orders Medication Instructions Recorded Confirmed metFORMIN [Glucophage] 1,000 mg PO BIDWM 09/03/17 01/31/19 Atorvastatin Calcium 40 mg PO QPM 01/30/19 01/31/19 Gabapentin 300 - 600 mg PO TID PRN 01/30/19 01/31/19 Metoprolol Tartrate [Lopressor] 50 mg PO BID 01/30/19 01/31/19 HYDROcod/ACETAM 5/325 [[place] 5/325] 1 - 2 ea PO Q6H PRN #15 tablet 01/31/19 fentaNYL [Fentanyl 25mcg patch] 1 each TD Q3D PRN #2 patch.td72 01/31/19 glipiZIDE [Glipizide] 10 mg PO DAILY #10 tablet 01/31/19 Lisinopril [Zestril] tab PO DAILY 04/10/21 - Allergies Allergies/Adverse Reactions: Allergies Allergy/AdvReac Type Severity Reaction Status Date / Time oxycodone AdvReac Mild Hallucinati Verified 04/10/21 20:49 ons - Social History Does the pt smoke?: No Smoking Status: Never smoker Does the pt drink ETOH?: Yes Does the pt have substance abuse?: No - Immunizations Immunizations are current?: Yes - POLST Patient has POLST: No POLST Status: Limited Interventions (he's willing to have surgeries, abx, or blood transfusions but if has arrhythmia with or severe stoke with plegia, let him go) PD ED PE NORMAL - Vitals Vital signs reviewed: Yes - General General: No acute distress, Well developed/nourished, Other (oriented to person, month. he cannot identify where he is at the time of the HPI nor why he is here ( says this would be c/w his baseline mental status)) - HEENT HEENT: PERRL, EOMI, Other (small left infraorbital echymosis, apperas old (purple/yellow color, nontender)) - Neck Neck: Supple, no meningeal sign - Cardiac Cardiac: RRR, No murmur - Respiratory Respiratory: No respiratory distress, Clear bilaterally - Abdomen Abdomen: Soft, Non tender - Derm Derm: Warm and dry - Extremities Extremities: Normal ROM s pain - Neuro Neuro: hose wrapper 2-12 intact, No motor deficit, No sensory deficit, Normal speech Eye Opening: Spontaneous Motor: Obeys Commands Verbal: Confused GCS Score: 14 PD ED PE EXPANDED - Extremities Extremities: Pedal edema bilateral - Psych Psych: Other (seems aggravated/annoyed at times during H+P, at one point insists I accused him of being an alcoholic (we had not discussed alcohol at any point but this might be related to questions asked by ED RN at time of triage)) NIHSS - Level of Consciousness Level of consciousness: (0) Alert, Keenly responsive LOC Questions: (0) Answers both Q's correct ((identifies the month as "the month after February", and age is correct although he then says he "took a guess" because he doesn't celebrate his birthday so wasn't sure within 1 year) LOC Commands: (0) Performs both correctly - Gaze Best Gaze: (0) Normal - Visual Visual: (0) No loss - Facial Palsy Facial Palsy: (0) Normal, symmetrical movement - Motor Arms (both separate) Motor Arm (right): (0) No drift Motor Arm (left): (0) No drift - Motor Legs (both separate) Motor Leg (right): (0) No drift Motor Leg (left): (0) No drift - Limb Ataxia Limb Ataxia: (0) Absent - Sensory Sensory: (0) Normal - Best Language Best Language: (0) No aphasia - Dysarthria Dysarthria: (0) Normal - Extinction and Inattention (formally neg Extinction and inattention: (0) No abnormality - Total Score/Results Total Score/Result: 0 Results - Vitals Vitals: Vital Signs - 24 hr 04/10/21 04/10/21 04/10/21 20:35 21:24 21:37 Temperature 37.1 C Heart Rate 66 61 66 Respiratory 23 15 15 Rate Blood Pressure 190/100 H 182/86 H 176/85 H O2 Saturation 97 97 98 04/10/21 04/10/21 04/10/21 22:02 23:01 23:38 Temperature Heart Rate 62 62 60 Respiratory 19 15 15 Rate Blood Pressure 200/93 H 208/101 H 199/99 H O2 Saturation 99 99 99 04/11/21 00:19 Temperature 35.9 C L Heart Rate 67 Respiratory 16 Rate Blood Pressure 191/94 H O2 Saturation 100 Oxygen O2 Source Room air - Labs Labs: Laboratory Tests 04/10/21 04/10/21 04/10/21 20:23 21:40 21:40 WBC 7.2 RBC 4.68 L Hgb 14.1 Hct 40.8 L MCV 87.2 MCH 30.1 MCHC 34.6 RDW 13.1 Plt Count 196 MPV 9.8 Neut # (Auto) 4.8 Lymph # (Auto) 1.5 G[place] # (Auto) 0.6 Eos # (Auto) 0.2 Baso # (Auto) 0.1 Absolute Nucleated RBC 0.00 Nucleated RBC % 0.0 PT 12.5 INR 1.1 Sodium Potassium Chloride Carbon Dioxide Anion Gap BUN Creatinine Estimated GFR (MDRD) Glucose Calcium Total Bilirubin AST ALT Alkaline Phosphatase Total Protein Albumin Globulin Albumin/Globulin Ratio Lipase Urine Color YELLOW Urine Clarity CLEAR Urine pH 6.5 Ur Specific [place] 1.010 Urine Protein NEGATIVE Urine Glucose (UA) NEGATIVE Urine Ketones NEGATIVE Urine Occult Blood LARGE H Urine Nitrite NEGATIVE Urine Bilirubin NEGATIVE Urine Urobilinogen 0.2 (NORMAL) Ur Leukocyte Esterase NEGATIVE Urine RBC TNTC H Urine WBC 0-3 Ur Squamous Epith Cells NONE SEEN Urine Bacteria Rare Ur Microscopic Review INDICATED Urine Culture Comments NOT INDICATED Nasal Adenovirus (PCR) Nasal B. parapertussis DNA (PCR) Nasal Coronavir 229E PCR Nasal Coronavir HKU1 PCR Nasal Coronavir NL63 PCR Nasal Coronavir OC43 PCR Nasal Enterovir/Rhinovir PCR Nasal Influenza B PCR Nasal Influenza A PCR Nasal Parainfluen 1 PCR Nasal Parainfluen 2 PCR Nasal Parainfluen 3 PCR Nasal Parainfluen 4 PCR Nasal RSV (PCR) Nasal B.pertussis DNA PCR Nasal C.pneumoniae (PCR) Artur Human Metapneumo PCR Nasal M.pneumoniae (PCR) Nasal SARS-CoV-2 (PCR) Ethyl Alcohol 04/10/21 04/11/21 21:40 00:20 WBC RBC Hgb Hct MCV MCH MCHC RDW Plt Count MPV Neut # (Auto) Lymph # (Auto) Gilliam # (Auto) Eos # (Auto) Baso # (Auto) Absolute Nucleated RBC Nucleated RBC % PT INR Sodium 138 Potassium 4.0 Chloride 103 Carbon Dioxide 28 Anion Gap 7.0 BUN 19 Creatinine 0.8 Estimated GFR (MDRD) 94 Glucose 136 H Calcium 8.4 L Total Bilirubin 0.9 AST 14 ALT 12 Alkaline Phosphatase 75 Total Protein 6.5 L Albumin 3.7 Globulin 2.8 Albumin/Globulin Ratio 1.3 Lipase 28 Urine Color Urine Clarity Urine pH Ur Specific [place] Urine Protein Urine Glucose (UA) Urine Ketones Urine Occult Blood Urine Nitrite Urine Bilirubin Urine Urobilinogen Ur Leukocyte Esterase Urine RBC Urine WBC Ur Squamous Epith Cells Urine Bacteria Ur Microscopic Review Urine Culture Comments Nasal Adenovirus (PCR) NOT DETECTED Nasal B. parapertussis DNA (PCR) NOT DETECTED Nasal Coronavir 229E PCR NOT DETECTED Nasal Coronavir HKU1 PCR NOT DETECTED Nasal Coronavir NL63 PCR NOT DETECTED Nasal Coronavir OC43 PCR NOT DETECTED Nasal Enterovir/Rhinovir PCR DETECTED A Nasal Influenza B PCR NOT DETECTED Nasal Influenza A PCR NOT DETECTED Nasal Parainfluen 1 PCR NOT DETECTED Nasal Parainfluen 2 PCR NOT DETECTED Nasal Parainfluen 3 PCR NOT DETECTED Nasal Parainfluen 4 PCR NOT DETECTED Nasal RSV (PCR) NOT DETECTED Nasal B.pertussis DNA PCR NOT DETECTED Nasal C.pneumoniae (PCR) NOT DETECTED Artur Human Metapneumo PCR NOT DETECTED Nasal M.pneumoniae (PCR) NOT DETECTED Nasal SARS-CoV-2 (PCR) NOT DETECTED Ethyl Alcohol < 5.0 - Rads (name of study) CTA head Radiology: Prelim report reviewed, See rad report CTA neck Radiology: Prelim report reviewed, See rad report PD MEDICAL DECISION MAKING - ED course Complexity details: reviewed old records, reviewed results, re-evaluated patient, considered differential, d/w patient, d/w family ED course: patient is confused on my H+P although his , at beside in ED, says this is his baseline mental status. She says the difficulty with speech and inability to recognize any of multiple family members that were at the house tonight was clearly off from his baseline mental status. His CTA head shows only chronic changes/findings. CTA neck is interpreted by radiologist as "1. No hemodynamically significant stenosis is seen in bilateral carotid arteries. 2. 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 No hemodynamically significant stenosis is seen in right vertebral artery. Normal basal artery." I discussed the case with neurology mental retardation nurse at [facility] (Dr. Orozco). Although the CTA neck findings likely do not represent an acute finding (nor would the symptoms/signs he had prior to arrival be c/w CVA in vertebral arterial distribution), she recommends admission for MRI in the morning, considering multiple risk factors for CVA. Departure - Departure Disposition: ED Place in Observation Clinical Impression: Stroke-like symptoms Condition: Stable Discharge Date/Time: 04/11/21 01:05
[2021-04-10] MEDS ORDERED: IOVERSOL 320 100 ML VIAL IVP ONE ×2 (21:04→21:25)
--- NOTE | 2021-04-10 21:51 | CT Report ---
PROCEDURE: ANGIO HEAD W/WO INDICATIONS: TIA sx CONTRAST: IV CONTRAST: Optiray 320 ml: 100 PO CONTRAST: *NO PO CONTRAST TECHNIQUE: Precontrast 4.5 mm thick angled axial sections acquired from the foramen magnum to the vertex. Afte r the administration of intravenous contrast, 1 mm thick sections acquired through the [place] of [place] is. Postcontrast 4.5 mm thick sections then re-acquired from the foramen magnum to the vertex. 3-di mensional hrgboxd-[id number]-gctmobuhno (MIP) and/or volume rendering reformats were acquired of the c entral intracranial vasculature. For radiation dose reduction, the following was used: automated ex posure control, adjustment of mA and/or kV according to patient size. COMPARISON: CT of head dated 04/03/2021 FINDINGS: Image quality: Excellent. Anterior circulation: Mild to moderate amount of atherosclerotic calcifications are noted involving b ilateral intracranial portion of internal carotid arteries with less than 50% stenosis. The flow with in the paired anterior cerebral arteries is normal and symmetric. The flow within the middle cerebra l arteries is normal and symmetric. The anterior communicating artery is seen. No aneurysms are see n. Posterior circulation: Moderate amount of atherosclerotic disease is seen involving distal intracran ial portion of bilateral distal vertebral arteries more prominent on the left side with focal area of moderate grade stenosis best seen on series 13 image 16. Rest of the visualized portions of the vert ebral arteries demonstrate normal caliber, and join to form a normal appearing basilar artery. Flow within the posterior cerebral arteries is normal and symmetric. No aneurysms are seen. CSF spaces: Ventricles are normal in size and shape. Basal cisterns are patent. No extra-axial flu id collections. Brain: No midline shift. No intracranial bleeds or masses. Mild to moderate periventricular and mookie p white matter chronic small vessel ischemic changes are again seen. Mcneil-white matter interface appe ars intact. There is no area of abnormal intracranial enhancement. Skull and face: Calvarium and facial bones appear intact, without suspicious lesions. Sinuses: Visualized sinuses and mastoids are clear. IMPRESSION: 1. 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 2. Mild to moderate atherosclerotic disease involving bilateral intracranial portion of distal verteb ral arteries with focal moderate grade stenosis involving left distal vertebral artery. 3. No hemodynamically significant stenosis or aneurysm is seen in rest of the intracranial circulatio n. 4. No CT evidence of acute intracranial pathology. No area of abnormal intracranial contrast enhancem ent. Reviewed by: Minh Henderson MD on 04/10/2021 9:50 PM PST Approved by: Minh Henderson MD on 04/10/2021 9:50 PM [facility] Station ID: [id number]
[2021-04-10 21:52] LABS: BASOPHILS # (AUTO) 0.1 10^3/uL (0.0-0.1); BASOPHILS % (AUTO) 0.8 %; EOSINOPHILS # (AUTO) 0.2 10^3/uL (0.0-0.7); EOSINOPHILS % (AUTO) 2.5 %; HCT - HEMATOCRIT 40.8 % (42.0-52.0); HGB - HEMOGLOBIN 14.1 g/dL (14.0-18.0); LYMPHOCYTES # (AUTO) 1.5 10^3/uL (1.5-3.5); LYMPHOCYTES % (AUTO) 20.9 %; MEAN CORPUSCULAR HEMOGLOBIN 30.1 pg (27.0-31.0); MEAN CORPUSCULAR HGB CONC 34.6 g/dL (32.0-36.0); MEAN CORPUSCULAR VOLUME 87.2 fL (80.0-94.0); MEAN PLATELET VOLUME 9.8 fL (7.4-11.4); MONOCYTES # (AUTO) 0.6 10^3/uL (0.0-1.0); MONOCYTES % (AUTO) 8.8 %; NEUTROPHILS # (AUTO) 4.8 10^3/uL (1.5-6.6); NEUTROPHILS % (AUTO) 66.7 %; PLT - PLATELET COUNT 196 10^3/uL (130-450); RED BLOOD COUNT 4.68 10^6/uL (4.70-6.10); RED CELL DISTRIBUTION WIDTH 13.1 % (12.0-15.0); WHITE BLOOD COUNT 7.2 x10^3/uL (4.8-10.8)
--- NOTE | 2021-04-10 21:56 | CT Report ---
PROCEDURE: ANGIO NECK W INDICATIONS: TIA sx CONTRAST: IV CONTRAST: Optiray 320 ml: 100 PO CONTRAST: *NO PO CONTRAST TECHNIQUE: After the administration of intravenous contrast, 1.5 mm axial sections acquired from the aortic arch to the [place] of [place]. Coronal 3-D maximum intensity projection (MIP) and/or volume rendering ref ormats were then performed. For radiation dose reduction, the following was used: automated exposur e control, adjustment of mA and/or kV according to patient size. COMPARISON: None. FINDINGS: Image quality: Excellent. Carotid system: The great vessels demonstrate a conventional anatomy as they arise from the aortic a rch. The origins of the common carotid arteries appear patent. The common carotid arteries demonstr ate normal calibers and courses. The bifurcation regions appear normal bilaterally. The internal ca rotid arteries demonstrate normal caliber and course. Posterior circulation: There is suggestion of high-grade stenosis to occlusion of left vertebral alberto ry at its origin. The origins of the right vertebral artery appears patent. There is nonvisualization of extracranial portion of left vertebral artery with diseased appearing distal left vertebral arter y likely supplied from right vertebral artery. The more superior portions of the right vertebral alberto ry demonstrate normal course and caliber. There is a normal-appearing basilar artery. Soft tissues: Visualized neck soft tissues demonstrate no suspicious abnormalities. The thyroid is normal in size and there are no incidental findings. Bones: No suspicious bony lesions. Visualized cervical spine appears normally aligned. IMPRESSION: 1. No hemodynamically significant stenosis is seen in bilateral carotid arteries. 2. 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 No hemodynamically significant stenosis is seen in right vertebral artery. Normal basal artery. The estimate of stenosis included in the report of the imaging study was calculated using the NASCET method CLINICAL RECOMMENDATION STATEMENTS: In patients <35 years with an ITN detected on CT, MRI, or extrathyroidal ultrasound, the Committee re commends further evaluation with dedicated thyroid ultrasound if the nodule is "e1 cm and has no susp icious imaging features, and if the patient has normal life expectancy. In patients "e35 years with an ITN detected on CT, MRI, or extrathyroidal ultrasound, the Committee r ecommends further evaluation with dedicated thyroid ultrasound if the nodule is "e1.5 cm and has no s uspicious imaging features, and if the patient has normal life expectancy. (ACR, 2014) Reviewed by: Minh Henderson MD on 04/10/2021 9:54 PM PST Approved by: Minh Henderson MD on 04/10/2021 9:54 PM PST Station ID: [id number]
[2021-04-10 21:58] LABS: INR 1.1 (0.8-1.2); PT - PROTHROMBIN TIME 12.5 secs (9.9-12.6)
[2021-04-10 22:06] LABS: ALBUMIN 3.7 g/dL (3.2-5.5); ALBUMIN/GLOBULIN RATIO 1.3 (1.0-2.2); ALKALINE PHOSPHATASE 75 IU/L (42-121); ALT ALANINE AMINOTRANSFERASE 12 IU/L (10-60); AST ASPARTATE AMINOTRANSFERASE 14 IU/L (10-42); BILIRUBIN,TOTAL 0.9 mg/dL (0.2-1.0); BUN - BLOOD UREA NITROGEN 19 mg/dL (6-20); CALCIUM 8.4 mg/dL (8.5-10.3); CARBON DIOXIDE - CO2 28 mmol/L (21-32); CHLORIDE 103 mmol/L (101-111); CREATININE 0.8 mg/dL (0.6-1.2); ETOH - ETHANOL < 5.0 mg/dL; GFR - MDRD 94 (>89); GLUCOSE 136 mg/dL (70-100); LIPASE 28 U/L (22-51); SODIUM 138 mmol/L (135-145); TOTAL PROTEIN 6.5 g/dL (6.7-8.2)
[2021-04-10 22:37] LABS: BILIRUBIN,URINE NEGATIVE (NEGATIVE); CLARITY,URINE CLEAR (CLEAR); GLUCOSE, URINE (UA) NEGATIVE (NEGATIVE); KETONES,URINE (UA) NEGATIVE (NEGATIVE); LEUKOCYTE ESTERASE, URINE NEGATIVE (NEGATIVE); NITRITE,URINE NEGATIVE (NEGATIVE); OCCULT BLOOD,URINE LARGE (NEGATIVE); PH,URINE 6.5 PH (5.0-7.5); PROTEIN,URINE NEGATIVE (NEGATIVE); UROBILINOGEN,URINE 0.2 (NORMAL) E.U./dL (NORMAL)
[2021-04-10 22:50] LABS: BACTERIA,URINE Rare /HPF (None Seen); RBC,URINE TNTC /HPF (0-5); SQUAMOUS EPITHELIAL CELL,UR NONE SEEN (<= Few); WBC,URINE 0-3 /HPF (0-3)
[2021-04-10] MEDS ORDERED: lisinopriL 5 MG TABLET PO STA (23:15)
[2021-04-11] MEDS ORDERED: SODIUM CHLORIDE FLUSH 0.9% 10 ML SYRINGE IVP PRN (00:54)
[2021-04-11] MEDS ORDERED: ACETAMINOPHEN 325 MG TABLET PO PRN (00:54)
[2021-04-11] MEDS ORDERED: ONDANSETRON 4 MG/2 ML VIAL IVP PRN (00:54)
[2021-04-11 01:21] LABS: B. PARAPERTUSSIS- RESP PCR PAN NOT DETECTED; B. PERTUSSIS- RESP PCR PANEL NOT DETECTED; C. PNEUMONIAE- RESP PCR PANEL NOT DETECTED; CORONAVIRUS 229E-RESP PCR NOT DETECTED; CORONAVIRUS HKU1-RESP PCR NOT DETECTED; CORONAVIRUS NL63-RESP PCR NOT DETECTED; CORONAVIRUS OC43-RESP PCR NOT DETECTED; HUMAN METAPNEUMOVIRUS NOT DETECTED; INFLUENZA A- RESP PCR PANEL NOT DETECTED; INFLUENZA B - RESP PCR PANEL NOT DETECTED; M. PNEUMONIAE- RESP PCR PANEL NOT DETECTED; PARAINFLUENZA VIRUS 1 NOT DETECTED; PARAINFLUENZA VIRUS 2 NOT DETECTED; PARAINFLUENZA VIRUS 3 NOT DETECTED; PARAINFLUENZA VIRUS 4 NOT DETECTED; RHINOVIRUS/ENTEROVIRUS DETECTED; RSV- RESP PCR PANEL NOT DETECTED; SARS-CoV-2 -RESP PCR PANEL NOT DETECTED
--- NOTE | 2021-04-11 01:30 | HISTORY & PHYSICAL EXAMINATION ---
Chief Complaint - Chief Complaint Chief Complaint: "word salad" according to History of Present Illness - Admitted From Admitted From:: ED - History Obtained From History obtained from: ED provider and chart review - History of Present Illness HPI Comment/Other: This is a 75-year-old white male with a history of hypertension, diabetes, prior TIAs and a stroke causing intermittent confusion and poor memory. He lives with his . He has admitted to forgetting to take meds in the past and has refused to be on Insulin. He has had several falls, once causing rib fractures and occasionally complains of dizziness, once had syncope. The patient presented now after he awoke from an afternoon nap and entered a room where there were several family members including a visiting infant grandchild and his speech was comprehensible (the said it sounded like a "word salad"). He was disoriented to time and place and did not recognize family or "the baby". On presentation to the ED, his speech had normalized but he was still confused. The , at the ED bedside, told the ED provider that this confusion is his baseline however. 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 BP in the ER was as high as 200 systolic. The ED provider reached out to Neurologist on-call who recommended that the patient be placed in Observation for brain MRI. He would like selective treatment, and wishes to be a DNR, per our records. History - Past Medical History Cardiovascular: reports: Hypertension Respiratory: reports: Sleep apnea Neuro: reports: Peripheral neuropathy, Other Endocrine/Autoimmune: reports: Type 2 diabetes GI: reports: GERD, Colon polyps, Ulcerative colitis : reports: Benign prostate hypertrophy, Nocturia, Kidney stones Psych: reports: Depression, Anxiety Musculoskeletal: reports: Osteoarthritis Derm: reports: None MRSA Hx?: No - Past Surgical History General: reports: Colonoscopy Ortho: reports: Other - Family & Social History Family History: Other family: Mental Illness Family History Comment/Other: He denies a family history of heart disease, stroke, diabetes, and syncope. He reports no known family history. He has 2 ad opted sons and one is schizophrenic. Living arrangement: At home Living Situation: With spouse/s.o. Social History Notes: Born and raised in [place], came to [facility] to work 25 years ago then moved here about 15 years ago. 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 He has been for over 50 years. Reported remote prior cigarette smoking in his teens and 20's. He drinks rare alcohol. No Hx of recreational substance abuse. - Substance History Use: Uses substance without health or social issues: NONE - POLST Patient has POLST: No POLST Status: Limited Interventions (he's willing to have surgeries, abx, or blood transfusions but if has arrhythmia with or severe stoke with plegia, let him go) Meds/Allgy - Home Medications Home Medications: Ambulatory Orders Medication Instructions Recorded Confirmed metFORMIN [Glucophage] 1,000 mg PO BIDWM 09/03/17 01/31/19 Atorvastatin Calcium 40 mg PO QPM 01/30/19 01/31/19 Gabapentin 300 - 600 mg PO TID PRN 01/30/19 01/31/19 Metoprolol Tartrate [Lopressor] 50 mg PO BID 01/30/19 01/31/19 HYDROcod/ACETAM 5/325 [[place] 5/325] 1 - 2 ea PO Q6H PRN #15 tablet 01/31/19 fentaNYL [Fentanyl 25mcg patch] 1 each TD Q3D PRN #2 patch.[id number] 01/31/19 glipiZIDE [Glipizide] 10 mg PO DAILY #10 tablet 01/31/19 Lisinopril [Zestril] tab PO DAILY 04/10/21 - Allergies Allergies/Adverse Reactions: Allergies Allergy/AdvReac Type Severity Reaction Status Date / Time oxycodone AdvReac Mild Hallucinati Verified 04/10/21 20:49 ons Review of Systems - All Other Systems All Other Systems: reports: Other (Very incompltete due to his poor memory.) Exam - Vital Signs Reviewed Vital Signs: Yes Vital Signs: Vital Signs x48h Temp Pulse Resp BP Pulse Ox 04/11/21 00:52 68 21 136/90 H 97 04/11/21 00:50 36.9 C 71 16 151/87 H 97 04/11/21 00:19 35.9 C L 67 16 191/94 H 100 04/10/21 23:38 60 15 199/99 H 99 04/10/21 23:01 62 15 208/101 H 99 04/10/21 22:02 62 19 200/93 H 99 04/10/21 21:37 66 15 176/85 H 98 04/10/21 21:24 61 15 182/86 H 97 04/10/21 20:35 37.1 C 66 23 190/100 H 97 - Physical Exam General Appearance: positive: No acute distress Eyes Bilateral: positive: Normal inspection, EOMI ENT: positive: ENT inspection nml, No signs of dehydration Neck: positive: Nml inspection, No JVD ((-_ carotid bruit) Respiratory: positive: No respiratory distress, Breath sounds nml Cardiovascular: positive: Regular rate & rhythm Skin: positive: Warm, Dry Extremities: positive: Non-tender, No pedal edema Neurologic/Psychiatric: positive: Disoriented to place, Disoriented to time, Other (Poor memory. Speedch is normal. Motor exam non-focal) Babinski Reflex: Right: Down, Left: Down Conclusion/Plan - Problem List (1) TIA (transient ischemic attack) Conclusion/Plan: Because of his risk factors of age, gender, poorly controlled hypertension, diabetes, hyperlipidemia and prior stroke/TIA, the on-call Meurologist recommended that the patient be placed in Observation for neuro checks and to obtain a brain MRI in the morning. We will obtain an Echo w/ bubble study to evaluate for a possible cardiac source of embolus. We will put on telemetry to watch for atrial fib. We will allow permissive hypertension. We will resume his blood pressure meds and cholesterol meds tomorrow. Check a lipid panel, and treat aggressively per guidelines, to achieve an LDL under 70. Will order a daily aspirin (his med list does not have aspirin listed but it is not yet reconciled) (2) History of CVA (cerebrovascular accident) Conclusion/Plan: The residual effect is poor memory plus intermittent confusion. At present, he is still overall able to function at home, living with his . Patient and have admitted in the past that he forgets some of his meds. Will request social work to determine if more help is needed at home. We will continue his statin and order a daily aspirin (his med list does not have aspirin listed but it is not yet reconciled) (3) Type 2 diabetes mellitus, uncontrolled, with neuropathy Conclusion/Plan: Will hold his Metformin while here. We will begin a carb controlled diet, sliding scale insulin coverage for fingerstick glucose checks. Check A1c in the morning. Nutrition consult for more detailed evaluation of probable poor glucose control and any recommendations. Will resume Gabapentin in a.m. (4) HTN (hypertension) Conclusion/Plan: He recieved Lisinopril in the ED and blood pressure has returned into a normal range. We will resume his lisinopril and a beta-jin dose in the morning - Lab Results Fish Bones: 04/10/21 21:40 04/10/21 21:40
[2021-04-11] MEDS: SODIUM CHLORIDE FLUSH 0.9% 10 ML SYRINGE IVP SCH ×2 (02:09→08:37)
[2021-04-11] MEDS: GABAPENTIN 100 MG CAPSULE PO SCH ×2 (05:54→13:45)
[2021-04-11 06:25] LABS: BUN - BLOOD UREA NITROGEN 17 mg/dL (6-20); CALCIUM 8.8 mg/dL (8.5-10.3); CARBON DIOXIDE - CO2 27 mmol/L (21-32); CHLORIDE 99 mmol/L (101-111); CHOL/HDL RATIO 3.9 (<5.0); CHOLESTEROL 168 mg/dL; CREATININE 0.9 mg/dL (0.6-1.2); GFR - MDRD 82 (>89); GLUCOSE 182 mg/dL (70-100); HDL CHOLESTEROL 43 mg/dL; LDL CHOLESTEROL,CALCULATED 102 mg/dL; LDL/HDL RATIO 2.4 (<3.6); MAGNESIUM 2.1 mg/dL (1.7-2.8); POTASSIUM 3.9 mmol/L (3.5-5.0); SODIUM 133 mmol/L (135-145); TRIGLYCERIDES 114 mg/dL; VLDL CHOLESTEROL 23 mg/dL
[2021-04-11] MEDS: INSULIN ASPART 300 UNIT/3 ML PEN SUBQ SCH ×2 (08:35→12:13)
[2021-04-11 08:42] LABS: ESTIMATED AVERAGE GLUCOSE 166 mg/dL (70-100); HEMOGLOBIN A1c% 7.4 % (4.27-6.07)
[2021-04-11] MEDS ORDERED: ASPIRIN EC 81 MG TABLET PO SCH (09:00)
[2021-04-11] MEDS ORDERED: METOPROLOL SUCCINATE 25 MG TABLET PO SCH (09:00)
[2021-04-11] MEDS ORDERED: lisinopriL 20 MG TABLET PO SCH (09:00)
--- NOTE | 2021-04-11 11:05 | PHARMACY PROGRESS NOTE ---
- Best Possible Medication History Admit Date and Time: 04/11/21 0041 Processed by: Pharmacy Medication History completed: Yes Patient Interview: Completed (Pt states he is not very compliant with drug therapy. List reflects his prescribed regimen.) Secondary Source(s): Physician records, Pharmacy records As the person ultimately responsible for medication therapy, providers are able to order a medication from an existing home medication list in [facility] via the "Reconcile Routine" prior to Confirmation of that medication by data support specialist. Such practice is discouraged except when the physician, in their clinical judgment, deems that a medical need exists for a medication without regard to previous use.
--- NOTE | 2021-04-11 14:56 | Discharge Plan ---
Discharge Plan Problem Reviewed?: Yes Disposition: Home, Self Care Condition: Stable Diet: Cardiac Activity Restrictions: Activity as Tolerated Shower Restrictions: No Driving Restrictions: Yes (no driving) Health Concerns: You have a history of strokes, and transient ischemic attacks which is the symptoms before you have a stroke. You've been left with poor memory and intermittent confusion. You have episodes where you have word salad. You had an admission for this in 2018 where he had an MRI and an echocardiogram. You now present with the same symptoms of confusion and word salad. You've had a CT of the head which is negative. And you've had a echocardiogram, ultrasound of the heart, that is also normal. However this is a preliminary finding and you need to have your doctor review that echocardiogram to make sure the final report is in your chart. We then attempted to do an MRI of your head but the power went out. The MRI machine can no longer be used today. I have already emailed your doctor to order an MRI for you. While you were here, you also were telling me that you were very tired of all of this. You did not want to come to the hospital anymore and you wanted us to stop doing "all of these things" to you. You have said this to your in the past. Plan of Treatment: 1. I have emailed Dr. Juan to schedule an MRI of the head for you in follow-up if you want to follow through for work-up of possible stroke 2. I have spoken to your and let her know that you are voicing your tiredness, and really didn't want to be doing a lot of x-rays or admissions to the hospital anymore. I strongly encourage you and your to sit down and discuss what you really want. After you decide, make sure you discuss this with Dr. Juan so that he can then make appropriate decisions and judgments. 3. A good resource to use is something called a palliative care consultation. Have Dr. Meier refer you to see palliative care. They will be able to see you in your home and discuss a lot of this with your and you to help you decide what is important to you or what is not so important. Care Goals: Right now you tell me you don't want to be resuscitated. You don't want to come back to the hospital. And you really don't think you want to do the MRI. But please follow through with seeing Dr. Juan and getting an MRI and having conversations with your and Dr. Juan Assessment: Patient has confusion and memory loss. I have discussed this with his and I have advised that she start giving him his medications. And that they follow- up with Dr. Juan No Smoking: If you smoke, Please STOP! Call for help.
[2021-04-11 16:28] VITALS: BP 150/90
[2021-04-11] MEDS ORDERED: ATORVASTATIN 40 MG TABLET PO SCH (21:00)
--- NOTE | 2021-04-19 22:51 | DISCHARGE SUMMARY ---
Discharge Summary Admit Date: 04/10/21 Discharge Date: 04/11/21 Condition at Discharge: Stable Discharge Disposition: 01 Home, Self Care - DIAGNOSES Discharge Diagnoses with Status of Each Condition: 1. TIA, resolved 2. History of stroke with residual cognitive deficit 3. Type 2 diabetes mellitus, uncontrolled with neuropathy 4. Hypertension - HPI History of Present Illness: This is a 75-year-old white male with a history of hypertension, diabetes, prior TIAs and a stroke causing intermittent confusion and poor memory. He lives with his . He has admitted to forgetting to take meds in the past and has refused to be on Insulin. He has had several falls, once causing rib fractures and occasionally complains of dizziness, once had syncope. The patient presented now after he awoke from an afternoon nap and entered a room where there were several family members including a visiting infant grandchild and his speech was comprehensible (the said it sounded like a "word salad"). He was disoriented to time and place and did not recognize family or "the baby". On presentation to the ED, his speech had normalized but he was still confused. The , at the ED bedside, told the ED provider that this confusion is his baseline however. 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 BP in the ER was as high as 200 systolic. The ED provider reached out to Neurologist on-call who recommended that the patient be placed in Observation for brain MRI. He would like selective treatment, and wishes to be a DNR, per our records. - Past Medical History Cardiovascular: reports: Hypertension Respiratory: reports: Sleep apnea Neuro: reports: Peripheral neuropathy, Other Endocrine/Autoimmune: reports: Type 2 diabetes GI: reports: GERD, Colon polyps, Ulcerative colitis : reports: Benign prostate hypertrophy, Nocturia, Kidney stones Psych: reports: Depression, Anxiety Musculoskeletal: reports: Osteoarthritis Derm: reports: None MRSA Hx?: No - Past Surgical History General: reports: Colonoscopy - CONSULTS | PROCEDURES Procedures: 1. Head CT angiogram with mild atherosclerotic disease involving bilateral distal intracranial portion of internal carotids. Mild to moderate arteriosclerotic disease involving bilateral intracranial portion of distal vertebral arteries with focal moderate grade stenosis involving left distal vertebral artery. No hemodynamically significant stenosis or aneurysm seen in the rest of the intracranial circulation. Brain had mild to moderate periventricular and deep white matter chronic small vessel ischemic changes. There were no areas of abnormal intracranial enhancement. 2. Neck CT angiogram without hemodynamically significant stenosis in bilateral carotid arteries. Suggestion of occluded left vertebral artery at its origin with disease appearing distal intracranial left vertebral artery likely supplied by right vertebral artery. 3. Echocardiogram with technically difficult study due to acoustic windows being poor. Normal LV size and systolic function. Normal RV size and systolic funct ion. No significant valvular pathology. No shunt. - HOSPITAL COURSE Hospital Course: Patient was placed in observation for a TIA. This is a mirror image admitted from previous admit. He has baseline cognitive deficit. He was back to baseline by the time he got to [facility]. There were no further episodes of word salad. We were unable to schedule an MRI and as such I have asked him to make sure he follows up with his primary care provider to get an MRI in the outpatient setting. I let he, his , and Dr. Juan know this. The patient stated that he no longer wanted to keep on doing these admissions. He no longer wanted to have evaluations. He wanted to stress of staying at home, and having" natural progression" of his disease. As such I spoke to his about his wishes. And recommended the patient have a palliative care consultation visit with the palliative care service. At discharge temperature is 37.1. Heart rate 65. Blood pressure 150/90. Respirations 16. 99% on room air. He is a 5 foot 7 inch white male who weighs 95 kg. He was oriented to person, place, and knew the month and year but not day of the week. At times word finding was difficult for him. But his states, after speaking to him on the phone, this is his baseline. He was brought in because of severe deterioration in that baseline. Neck is supple and I do not hear bruits. Lungs are clear to auscultation and percussion. He has a regular rate and rhythm. The abdomen is soft, nontender. There are no focal neurological deficits. No facial droop, no dysarthria, just word finding difficulty. He ambulates in the room with standby assist. He does need help with prompting with regards to self-care but he is able to complete that. He is discharged in stable condition to follow-up with Dr. Juan about getting an MRI, and a palliative care consultation. There were no changes in his medications for discharge. - ALLERGIES Allergies/Adverse Reactions: Allergies Allergy/AdvReac Type Severity Reaction Status Date / Time oxycodone AdvReac Mild Hallucinati Verified 04/10/21 20:49 ons - MEDICATIONS Home Medications: Ambulatory Orders Medication Instructions Recorded Confirmed metFORMIN [Glucophage] 1,000 mg PO BIDWM 09/03/17 04/11/21 Atorvastatin Calcium 40 mg PO QPM 01/30/19 04/11/21 Lisinopril [Zestril] 20 mg PO DAILY 04/10/21 04/11/21 Aspirin [Aspirin EC] 81 mg PO DAILY 04/11/21 04/11/21 Clopidogrel [Plavix] 75 mg PO DAILY 04/11/21 04/11/21 Metoprolol Succinate 100 mg PO DAILY 04/11/21 04/11/21 amLODIPine [Norvasc] 5 mg PO DAILY 04/11/21 04/11/21 - LABS Result Diagrams: 04/10/21 21:40 04/11/21 05:45
== END 2021-04-11 16:30 | disposition home or self-care (01) ==
LOC: EDUNIT# → ED 20:35 → MS2 04-11 00:41
PROVIDERS: ADMIT Internal Medicine; ATTEND Specialist
DX: G45.9 Transient cerebral ischemic attack, unspecified (principal); I69.319 Unspecified symptoms and signs involving cognitive functions following cerebral infarction; I10 Essential (primary) hypertension; E11.65 Type 2 diabetes mellitus with hyperglycemia; E11.42 Type 2 diabetes mellitus with diabetic polyneuropathy; Z91.81 History of falling; G47.30 Sleep apnea, unspecified; N40.1 Benign prostatic hyperplasia with lower urinary tract symptoms; R35.1 Nocturia; Z87.891 Personal history of nicotine dependence; I67.2 Cerebral atherosclerosis; Z66 Do not resuscitate; K21.9 Gastro-esophageal reflux disease without esophagitis; Z20.822 Contact with and (suspected) exposure to COVID-19
CPT/HCPCS: 36415; 70496; 70498; 80048; 80053; 80061; 81001; 83036; 83690; 83735; 85025; 85610; 87631; 93005; 93306; 99284; 99285; A9270; G0378; G0480; Q9967; 0202U; 80320; 81003; 83721; 87086

== ENCOUNTER 2021-05-05 13:21 | Outpatient (CLI) | payer MEDICARE, BC ==
--- NOTE | 2021-05-05 15:01 | MRI Report ---
PROCEDURE: Brain W/O INDICATIONS: LACUNAR INFARCTION TECHNIQUE: Noncontrast axial T1 spin echo, axial T2 fast spin echo, sagittal and axial FLAIR, coronal T2 fast sp in echo, axial gradient echo, axial diffusion and ADC through the brain. COMPARISON: Prior brain MRI examinations, 01/30/2019 and 11/08/2017 Correlation is made with prior head CT angiogram, 04/10/2021. FINDINGS: Image quality: Excellent. CSF Spaces: Basal cisterns are patent. No extra-axial fluid collections. Ventricles are normal in size and shape. Brain: No intracranial masses or hemorrhage. Mcneil/white matter interface is normal. Brainstem appe ars normal. Diffusion-weighted images demonstrate no acute ischemic insult. Normal intravascular fl ow voids are present. Age-appropriate brain parenchymal volume loss and relatively prominent chronic small vessel ischemic change can be seen. Prominent perivascular spaces are incidentally noted. Skull and face: Calvarium has normal marrow signal. Orbits appear normal. Incidental note is made of bilateral lens replacements. Sinuses: Sinuses and mastoids are clear. IMPRESSION: No findings of acute or subacute infarction are seen. Brain parenchymal loss and relatively prominent chronic small vessel ischemic change can be seen. Reviewed by: Jesse Zhang MD on 05/05/2021 2:00 PM [facility] Approved by: Jesse Zhang MD on 05/05/2021 2:00 PM [facility] Station ID: [id number]
== END 2021-05-05 13:22 | disposition home or self-care (01) ==
LOC: DI 13:21
PROVIDERS: ATTEND Internal Medicine
DX: R41.82 Altered mental status, unspecified (principal); Z86.73 Personal history of transient ischemic attack (TIA), and cerebral infarction without residual deficits; I67.82 Cerebral ischemia

== ENCOUNTER 2021-08-17 14:14 | Outpatient (CLI) | payer MEDICARE, BC ==
[2021-08-17 17:54] LABS: BASOPHILS # (AUTO) 0.1 10^3/uL (0.0-0.1); BASOPHILS % (AUTO) 0.9 %; EOSINOPHILS # (AUTO) 0.3 10^3/uL (0.0-0.7); EOSINOPHILS % (AUTO) 4.1 %; HCT - HEMATOCRIT 39.6 % (42.0-52.0); HGB - HEMOGLOBIN 13.3 g/dL (14.0-18.0); LYMPHOCYTES # (AUTO) 1.4 10^3/uL (1.5-3.5); LYMPHOCYTES % (AUTO) 22.5 %; MEAN CORPUSCULAR HEMOGLOBIN 29.8 pg (27.0-31.0); MEAN CORPUSCULAR HGB CONC 33.6 g/dL (32.0-36.0); MEAN CORPUSCULAR VOLUME 88.6 fL (80.0-94.0); MEAN PLATELET VOLUME 10.5 fL (7.4-11.4); MONOCYTES # (AUTO) 0.6 10^3/uL (0.0-1.0); NEUTROPHILS # (AUTO) 4.1 10^3/uL (1.5-6.6); NEUTROPHILS % (AUTO) 63.3 %; PLT - PLATELET COUNT 206 10^3/uL (130-450); RED BLOOD COUNT 4.47 10^6/uL (4.70-6.10); RED CELL DISTRIBUTION WIDTH 13.8 % (12.0-15.0); WHITE BLOOD COUNT 6.4 x10^3/uL (4.8-10.8)
[2021-08-17 18:03] LABS: CREATININE,URINE 106.5 mg/dL; MICROALBUMIN,URINE 3.2 mg/dL (0-300.0)
[2021-08-17 18:20] LABS: ALBUMIN 4.1 g/dL (3.2-5.5); ALBUMIN/GLOBULIN RATIO 1.4 (1.0-2.2); ALKALINE PHOSPHATASE 81 IU/L (42-121); ALT ALANINE AMINOTRANSFERASE 13 IU/L (10-60); AST ASPARTATE AMINOTRANSFERASE 19 IU/L (10-42); BILIRUBIN,TOTAL 0.9 mg/dL (0.2-1.0); BUN - BLOOD UREA NITROGEN 21 mg/dL (6-20); CALCIUM 9.2 mg/dL (8.5-10.3); CARBON DIOXIDE - CO2 27 mmol/L (21-32); CHLORIDE 104 mmol/L (101-111); CHOL/HDL RATIO 2.3 (<5.0); CHOLESTEROL 87 mg/dL; GFR - MDRD 73 (>89); GLUCOSE 122 mg/dL (70-100); HDL CHOLESTEROL 38 mg/dL; LDL CHOLESTEROL,CALCULATED 33 mg/dL; LDL/HDL RATIO 0.9 (<3.6); POTASSIUM 4.6 mmol/L (3.5-5.0); SODIUM 140 mmol/L (135-145); THYROID STIMULATING HORMONE 1.83 uIU/mL (0.34-5.60); TOTAL PROTEIN 7.1 g/dL (6.7-8.2); TRIGLYCERIDES 82 mg/dL; VLDL CHOLESTEROL 16 mg/dL
[2021-08-17 20:42] LABS: ESTIMATED AVERAGE GLUCOSE 140 mg/dL (70-100); HEMOGLOBIN A1c% 6.5 % (4.27-6.07)
== END 2021-08-17 14:15 | disposition home or self-care (01) ==
LOC: LAB.N 14:14
PROVIDERS: ATTEND Internal Medicine
DX: I10 Essential (primary) hypertension (principal); I25.10 Atherosclerotic heart disease of native coronary artery without angina pectoris; E11.42 Type 2 diabetes mellitus with diabetic polyneuropathy; F41.9 Anxiety disorder, unspecified; F32.A Depression, unspecified
CPT/HCPCS: 36415; 80053; 80061; 82043; 82570; 83036; 83721; 84443; 85025

== ENCOUNTER 2021-12-28 09:59 | Outpatient (CLI) | payer MEDICARE, BC ==
[2021-12-28 10:27] LABS: BUN - BLOOD UREA NITROGEN 24 mg/dL (6-20); CALCIUM 9.4 mg/dL (8.5-10.3); CARBON DIOXIDE - CO2 27 mmol/L (21-32); CHLORIDE 102 mmol/L (101-111); CHOL/HDL RATIO 2.6 (<5.0); CHOLESTEROL 113 mg/dL; CREATININE 1.1 mg/dL (0.6-1.2); GFR - MDRD 65 (>89); GLUCOSE 136 mg/dL (70-100); HDL CHOLESTEROL 43 mg/dL; LDL CHOLESTEROL,CALCULATED 55 mg/dL; LDL/HDL RATIO 1.3 (<3.6); POTASSIUM 4.4 mmol/L (3.5-5.0); SODIUM 139 mmol/L (135-145); TRIGLYCERIDES 73 mg/dL; VLDL CHOLESTEROL 15 mg/dL
[2021-12-28 12:56] LABS: ESTIMATED AVERAGE GLUCOSE 134 mg/dL (70-100); HEMOGLOBIN A1c% 6.3 % (4.27-6.07)
== END 2021-12-28 10:00 | disposition home or self-care (01) ==
LOC: LAB 09:59
PROVIDERS: ATTEND Internal Medicine
DX: E11.42 Type 2 diabetes mellitus with diabetic polyneuropathy (principal); E78.5 Hyperlipidemia, unspecified
CPT/HCPCS: 36415; 80048; 80061; 83036; 83721

== ENCOUNTER 2022-04-17 10:44 | Outpatient (CLI) | payer MEDICARE, BC ==
[2022-04-17 10:59] LABS: BASOPHILS # (AUTO) 0.1 10^3/uL (0.0-0.1); BASOPHILS % (AUTO) 1.1 %; EOSINOPHILS # (AUTO) 0.3 10^3/uL (0.0-0.7); EOSINOPHILS % (AUTO) 3.6 %; HCT - HEMATOCRIT 40.6 % (42.0-52.0); LYMPHOCYTES # (AUTO) 1.6 10^3/uL (1.5-3.5); LYMPHOCYTES % (AUTO) 21.5 %; MEAN CORPUSCULAR HEMOGLOBIN 29.8 pg (27.0-31.0); MEAN CORPUSCULAR HGB CONC 34.5 g/dL (32.0-36.0); MEAN CORPUSCULAR VOLUME 86.4 fL (80.0-94.0); MEAN PLATELET VOLUME 9.9 fL (7.4-11.4); MONOCYTES # (AUTO) 0.6 10^3/uL (0.0-1.0); MONOCYTES % (AUTO) 7.7 %; NEUTROPHILS % (AUTO) 65.8 %; PLT - PLATELET COUNT 219 10^3/uL (130-450); RED CELL DISTRIBUTION WIDTH 13.1 % (12.0-15.0); WHITE BLOOD COUNT 7.6 x10^3/uL (4.8-10.8)
[2022-04-17 11:18] LABS: ALBUMIN 4.4 g/dL (3.2-5.5); ALBUMIN/GLOBULIN RATIO 1.5 (1.0-2.2); ALKALINE PHOSPHATASE 92 IU/L (42-121); ALT ALANINE AMINOTRANSFERASE 13 IU/L (10-60); AST ASPARTATE AMINOTRANSFERASE 15 IU/L (10-42); BUN - BLOOD UREA NITROGEN 28 mg/dL (6-20); CALCIUM 9.1 mg/dL (8.5-10.3); CARBON DIOXIDE - CO2 24 mmol/L (21-32); CHLORIDE 103 mmol/L (101-111); CHOL/HDL RATIO 2.5 (<5.0); CHOLESTEROL 102 mg/dL; CREATININE 1.4 mg/dL (0.6-1.2); GFR - MDRD 49 (>89); GLUCOSE 118 mg/dL (70-100); HDL CHOLESTEROL 41 mg/dL; LDL CHOLESTEROL,CALCULATED 46 mg/dL; LDL/HDL RATIO 1.1 (<3.6); POTASSIUM 4.4 mmol/L (3.5-5.0); SODIUM 140 mmol/L (135-145); TOTAL PROTEIN 7.4 g/dL (6.7-8.2); TRIGLYCERIDES 77 mg/dL; VLDL CHOLESTEROL 15 mg/dL
[2022-04-17 12:37] LABS: ESTIMATED AVERAGE GLUCOSE 143 mg/dL (70-100); HEMOGLOBIN A1c% 6.6 % (4.27-6.07)
== END 2022-04-17 10:45 | disposition home or self-care (01) ==
LOC: LAB 10:44
PROVIDERS: ATTEND Internal Medicine
DX: I10 Essential (primary) hypertension (principal); E11.42 Type 2 diabetes mellitus with diabetic polyneuropathy
CPT/HCPCS: 36415; 80053; 80061; 83036; 83721; 85025

== ENCOUNTER 2022-04-21 13:19 | Outpatient (CLI) | payer MEDICARE, BC ==
--- NOTE | 2022-04-21 15:40 | CT Report ---
PROCEDURE: HEAD WO INDICATIONS: NECK PAIN, HEADACHE TECHNIQUE: Noncontrast 4.5 mm thick angled axial sections acquired from the foramen magnum to the vertex. For r adiation dose reduction, the following was used: automated exposure control, adjustment of mA and/or kV according to patient size. COMPARISON: Brain MRI dated 05/05/2021, head CT dated 04/03/2021. FINDINGS: Image quality: Excellent. CSF spaces: Basal cisterns are patent. No extra-axial fluid collections. Ventricles are normal in size and shape. Brain: No midline shift. No intracranial masses or hemorrhage. Mcneil-white matter interface is norm al. Age-related volume loss and severe small vessel ischemic change. Old bilateral basal ganglia lac unar infarctions. Skull and face: Calvarium and visualized facial bones are intact, without suspicious lesions. Sinuses: Minimal lobulated soft tissue in the dependent portion of the right maxillary sinus. Otherwi se unremarkable. IMPRESSION: 1. Age-related volume loss and severe small vessel ischemic change. Old bilateral lacunar infarctions . 2. No evidence acute intracranial abnormality. Reviewed by: Valentin Mesa MD on 04/21/2022 3:39 PM PST Approved by: Valentin Mesa MD on 04/21/2022 3:39 PM PST Station ID: [id number]
--- NOTE | 2022-04-21 15:44 | CT Report ---
PROCEDURE: CERVICAL SPINE WO INDICATIONS: NECK PAIN TECHNIQUE: Noncontrast 3 mm thick sections acquired from the skull base to the T4 level. Sagittal and coronal r eformats were then constructed. For radiation dose reduction, the following was used: automated exp osure control, adjustment of mA and/or kV according to patient size. COMPARISON: 03/29/2021. FINDINGS: Image quality: Excellent. Bones: No fractures or dislocations. Visualized superior ribs are intact. Severe cervical spondyli tic change. There is degenerative anterolisthesis of C4 on C5 measuring approximately 4 mm. There is trace anterolisthesis of C5 on C6 and of C7 on T1. There is multilevel facet arthropathy, most notabl y involving the right C4-C5 and C5-C6 facets. There is multilevel uncovertebral joint hypertrophy and multilevel bony foraminal narrowing. Soft tissues: Prevertebral soft tissues are normal in thickness. No paravertebral hematomas. No ap ical pneumothoraces. Dense bilateral distal vertebral artery atherosclerotic calcifications. IMPRESSION: 1. No evidence acute cervical fracture or dislocation. 2. Diffuse cervical spondylitic change. 3. ASCVD. Reviewed by: Valentin Mesa MD on 04/21/2022 3:43 PM PST Approved by: Valentin Mesa MD on 04/21/2022 3:43 PM PST Station ID: [id number]
== END 2022-04-21 13:20 | disposition home or self-care (01) ==
LOC: DI 13:19
PROVIDERS: ATTEND Internal Medicine
DX: M47.812 Spondylosis without myelopathy or radiculopathy, cervical region (principal); I25.10 Atherosclerotic heart disease of native coronary artery without angina pectoris; I67.82 Cerebral ischemia; R51.9 Headache, unspecified; Z86.73 Personal history of transient ischemic attack (TIA), and cerebral infarction without residual deficits

== ENCOUNTER 2022-09-28 10:17 | Outpatient (CLI) | payer MEDICARE, BC ==
[2022-09-28 10:43] LABS: BASOPHILS # (AUTO) 0.1 10^3/uL (0.0-0.1); EOSINOPHILS # (AUTO) 0.2 10^3/uL (0.0-0.7); EOSINOPHILS % (AUTO) 3.2 %; HCT - HEMATOCRIT 43.5 % (42.0-52.0); HGB - HEMOGLOBIN 14.4 g/dL (14.0-18.0); LYMPHOCYTES # (AUTO) 1.7 10^3/uL (1.5-3.5); LYMPHOCYTES % (AUTO) 23.6 %; MEAN CORPUSCULAR HEMOGLOBIN 29.5 pg (27.0-31.0); MEAN CORPUSCULAR HGB CONC 33.1 g/dL (32.0-36.0); MEAN CORPUSCULAR VOLUME 89.1 fL (80.0-94.0); MONOCYTES # (AUTO) 0.5 10^3/uL (0.0-1.0); MONOCYTES % (AUTO) 6.8 %; NEUTROPHILS # (AUTO) 4.8 10^3/uL (1.5-6.6); NEUTROPHILS % (AUTO) 65.3 %; PLT - PLATELET COUNT 228 10^3/uL (130-450); RED BLOOD COUNT 4.88 10^6/uL (4.70-6.10); RED CELL DISTRIBUTION WIDTH 13.2 % (12.0-15.0); WHITE BLOOD COUNT 7.3 x10^3/uL (4.8-10.8)
[2022-09-28 10:54] LABS: ESTIMATED AVERAGE GLUCOSE 151 mg/dL (70-100); HEMOGLOBIN A1c% 6.9 % (4.27-6.07)
[2022-09-28 13:05] LABS: ALBUMIN 4.5 g/dL (3.2-5.5); ALBUMIN/GLOBULIN RATIO 1.5 (1.0-2.2); ALKALINE PHOSPHATASE 87 IU/L (42-121); ALT ALANINE AMINOTRANSFERASE 17 IU/L (10-60); AST ASPARTATE AMINOTRANSFERASE 16 IU/L (10-42); BILIRUBIN,TOTAL 0.7 mg/dL (0.2-1.0); BUN - BLOOD UREA NITROGEN 21 mg/dL (6-20); CALCIUM 9.4 mg/dL (8.5-10.3); CARBON DIOXIDE - CO2 27 mmol/L (21-32); CHLORIDE 108 mmol/L (101-111); CHOL/HDL RATIO 2.4 (<5.0); CHOLESTEROL 104 mg/dL; GFR - MDRD 72 (>89); GLUCOSE 148 mg/dL (70-100); HDL CHOLESTEROL 43 mg/dL; LDL CHOLESTEROL,CALCULATED 41 mg/dL; POTASSIUM 4.6 mmol/L (3.5-5.0); SODIUM 140 mmol/L (135-145); TOTAL PROTEIN 7.6 g/dL (6.7-8.2); TRIGLYCERIDES 101 mg/dL; VLDL CHOLESTEROL 20 mg/dL
[2022-09-28 14:21] LABS: CREATININE,URINE 91.7 mg/dL; MICROALBUM/CREATININE RATIO,UR 41.4 ug/mg (<30.0); MICROALBUMIN,URINE 3.8 mg/dL (0-300.0)
== END 2022-09-28 10:18 | disposition home or self-care (01) ==
LOC: LAB 10:17
PROVIDERS: ATTEND Internal Medicine
DX: E11.42 Type 2 diabetes mellitus with diabetic polyneuropathy (principal); I25.10 Atherosclerotic heart disease of native coronary artery without angina pectoris; I10 Essential (primary) hypertension
CPT/HCPCS: 36415; 80053; 80061; 82043; 82570; 83036; 83721; 85025

== ENCOUNTER 2023-03-07 11:12 | Outpatient (CLI) | payer MEDICARE, BC ==
[2023-03-07 11:49] LABS: CALCIUM 9.4 mg/dL (8.5-10.3); CREATININE 1.4 mg/dL (0.6-1.3); POTASSIUM 4.2 mmol/L (3.5-4.5)
[2023-03-07 11:55] LABS: ESTIMATED AVERAGE GLUCOSE 154 mg/dL (70-100)
== END 2023-03-07 11:13 | disposition home or self-care (01) ==
LOC: LAB 11:12
PROVIDERS: ATTEND Internal Medicine
DX: E11.42 Type 2 diabetes mellitus with diabetic polyneuropathy (principal)
CPT/HCPCS: 36415; 80048; 83036

== ENCOUNTER 2023-06-06 12:14 | Outpatient (CLI) | payer MEDICARE, BC ==
[2023-06-06 12:36] LABS: BASOPHILS # (AUTO) 0.1 10^3/uL (0.0-0.1); BASOPHILS % (AUTO) 1.1 %; EOSINOPHILS # (AUTO) 0.2 10^3/uL (0.0-0.7); EOSINOPHILS % (AUTO) 2.9 %; HCT - HEMATOCRIT 37.3 % (42.0-52.0); LYMPHOCYTES # (AUTO) 1.2 10^3/uL (1.5-3.5); MEAN CORPUSCULAR HEMOGLOBIN 28.7 pg (27.0-31.0); MEAN CORPUSCULAR HGB CONC 32.2 g/dL (32.0-36.0); MEAN CORPUSCULAR VOLUME 89.2 fL (80.0-94.0); MEAN PLATELET VOLUME 9.6 fL (7.4-11.4); MONOCYTES # (AUTO) 0.5 10^3/uL (0.0-1.0); MONOCYTES % (AUTO) 8.4 %; NEUTROPHILS # (AUTO) 4.3 10^3/uL (1.5-6.6); NEUTROPHILS % (AUTO) 68.4 %; PLT - PLATELET COUNT 247 10^3/uL (130-450); RED BLOOD COUNT 4.18 10^6/uL (4.70-6.10); WHITE BLOOD COUNT 6.2 x10^3/uL (4.8-10.8)
[2023-06-06 13:05] LABS: ALBUMIN 4.1 g/dL (3.2-5.5); ALBUMIN/GLOBULIN RATIO 1.5 (1.0-2.2); ALKALINE PHOSPHATASE 88 IU/L (42-121); ALT ALANINE AMINOTRANSFERASE 6 IU/L (10-60); AST ASPARTATE AMINOTRANSFERASE 10 IU/L (10-42); BILIRUBIN,TOTAL 0.6 mg/dL (0.2-1.0); BUN - BLOOD UREA NITROGEN 51 mg/dL (6-20); CALCIUM 9.2 mg/dL (8.5-10.3); CARBON DIOXIDE - CO2 20 mmol/L (21-32); CHLORIDE 107 mmol/L (101-111); CHOL/HDL RATIO 2.9 (<5.0); CHOLESTEROL 120 mg/dL; CREATININE 3.6 mg/dL (0.6-1.3); GFR - MDRD 16 (>89); GLUCOSE 102 mg/dL (74-104); HDL CHOLESTEROL 41 mg/dL; LDL CHOLESTEROL,CALCULATED 45 mg/dL; LDL/HDL RATIO 1.1 (<3.6); LIPASE 28 U/L (11-82); POTASSIUM 4.9 mmol/L (3.5-4.5); SODIUM 138 mmol/L (135-145); TOTAL PROTEIN 6.8 g/dL (6.4-8.9); TRIGLYCERIDES 171 mg/dL (48-352); VLDL CHOLESTEROL 34 mg/dL
[2023-06-06 13:17] LABS: THYROID STIMULATING HORMONE 2.58 uIU/mL (0.34-5.60)
[2023-06-06 13:39] LABS: ESTIMATED AVERAGE GLUCOSE 128 mg/dL (70-100); HEMOGLOBIN A1c% 6.1 % (4.27-6.07)
== END 2023-06-06 12:15 | disposition home or self-care (01) ==
LOC: LAB 12:14
PROVIDERS: ATTEND Internal Medicine
DX: I25.10 Atherosclerotic heart disease of native coronary artery without angina pectoris (principal); R63.4 Abnormal weight loss; E11.42 Type 2 diabetes mellitus with diabetic polyneuropathy
CPT/HCPCS: 36415; 80053; 80061; 83036; 83690; 83721; 84443; 85025

== ENCOUNTER 2023-07-03 12:16 | Outpatient (CLI) | payer MEDICARE, BC ==
[2023-07-03 12:42] LABS: HCT - HEMATOCRIT 39.7 % (42.0-52.0); HGB - HEMOGLOBIN 12.6 g/dL (14.0-18.0); MEAN CORPUSCULAR HEMOGLOBIN 29.2 pg (27.0-31.0); MEAN CORPUSCULAR HGB CONC 31.7 g/dL (32.0-36.0); MEAN CORPUSCULAR VOLUME 92.1 fL (80.0-94.0); MEAN PLATELET VOLUME 10.6 fL (7.4-11.4); RED BLOOD COUNT 4.31 10^6/uL (4.70-6.10); RED CELL DISTRIBUTION WIDTH 14.6 % (12.0-15.0); WHITE BLOOD COUNT 7.3 x10^3/uL (4.8-10.8)
[2023-07-03 13:05] LABS: CALCIUM 9.2 mg/dL (8.5-10.3); CREATININE 4.2 mg/dL (0.6-1.3); POTASSIUM 4.8 mmol/L (3.5-4.5)
== END 2023-07-03 12:17 | disposition home or self-care (01) ==
LOC: LAB 12:16
PROVIDERS: ATTEND Surgery
DX: D64.9 Anemia, unspecified (principal)
CPT/HCPCS: 36415; 80048; 85027

== ENCOUNTER 2023-07-17 14:43 | Outpatient (CLI) | payer MEDICARE, BC ==
[2023-07-17 11:04] LABS: CREATININE,URINE 111.3 mg/dL; PROTEIN/CREATININE RATIO,URINE 0.4 (<=0.2)
[2023-07-17 11:04] LABS: CALCIUM 9.6 mg/dL (8.5-10.3); CREATININE 3.8 mg/dL (0.6-1.3); PHOSPHORUS 3.5 mg/dL (2.5-5.0); POTASSIUM 4.7 mmol/L (3.5-4.5)
--- NOTE | 2023-07-17 17:30 | Ultrasound Report ---
PROCEDURE: Renal (Retroperitoneal) INDICATIONS: CHERRI TECHNIQUE: Real-time scanning was performed of the retroperitoneal organs, with image documentation. COMPARISON: None. FINDINGS: Kidneys: Kidneys are normal in size. Right kidney measures 11.0 cm long; left kidney measures 9.3 c m long. Right renal cortical thickness is 0.7 cm; left renal cortical thickness is 0.7 cm. Nonobstru ctive right renal calculi measures up to 1.7 cm. Largest right renal cyst measures 3.8 cm. Left renal cyst multiple noted measuring up to 3.6 cm Bladder: Pre-void bladder volume is 46.9 mL. Post-void residual is 0 mL. Pre-void images demonstra te no intraluminal masses or stones. On pre-void images, left ureteral jets are noted with color Dop pler interrogation. (Of note, ureteral jets may not be detectable in up to 25% of cases due to insuf ficient differences in specific gravity between ureteral and bladder urine). Miscellaneous: Prostate measures 4.2 x 4.8 x 5.0 IMPRESSION: Nonobstructing right renal calculi. No hydronephrosis bilaterally. Simple bilateral renal cysts Reviewed by: Mono Bond MD on 07/17/2023 4:29 PM [place] Approved by: Mono Bond MD on 07/17/2023 4:29 PM AKST Station ID: [id number]
[2023-07-18 03:11] LABS: COMPLEMENT C3 118 mg/dL (82-167); COMPLEMENT C4 30 mg/dL (12-38)
[2023-07-19 13:11] LABS: ATYPICAL pANCA <1:20 titer (Neg:<1:20); CYTOPLASMIC (C-ANCA) <1:20 titer (Neg:<1:20); PERINUCLEAR (P-ANCA) <1:20 titer (Neg:<1:20)
[2023-07-19 15:09] LABS: A/G RATIO 1.4 (0.7-1.7); ALBUMIN 3.9 g/dL (2.9-4.4); ALPHA-1-GLOBULIN 0.2 g/dL (0.0-0.4); ALPHA-2-GLOBULIN 0.9 g/dL (0.4-1.0); GAMMA GLOBULIN 0.8 g/dL (0.4-1.8); GLOBULIN TOTAL 2.8 g/dL (2.2-3.9); IMMUNOGLOBULIN A (IGA) 293 mg/dL (61-437); IMMUNOGLOBULIN G (IGG) 823 mg/dL (603-1613); IMMUNOGLOBULIN M (IGM) 28 mg/dL (15-143); M-SPIKE Not Observed g/dL (Not Observed); PROTEIN TOTAL 6.7 g/dL (6.0-8.5)
[2023-07-19 17:09] LABS: MYELOPEROXIDASE (MPO) AB <0.2 units (0.0-0.9); PROTEINASE 3 (PR-3) AB <0.2 units (0.0-0.9)
== END 2023-07-17 14:44 | disposition home or self-care (01) ==
LOC: DI 14:43
PROVIDERS: ATTEND Internal Medicine Nephrology
DX: N20.0 Calculus of kidney (principal); N17.9 Acute kidney failure, unspecified; E11.9 Type 2 diabetes mellitus without complications; N05.9 Unspecified nephritic syndrome with unspecified morphologic changes; N25.81 Secondary hyperparathyroidism of renal origin; R80.9 Proteinuria, unspecified; D47.2 Monoclonal gammopathy; D89.89 Other specified disorders involving the immune mechanism, not elsewhere classified; L93.2 Other local lupus erythematosus; M31.30 Wegener's granulomatosis without renal involvement; N00.9 Acute nephritic syndrome with unspecified morphologic changes; I77.6 Arteritis, unspecified
CPT/HCPCS: 36415; 80048; 82570; 82784; 83516; 83970; 84100; 84155; 84156; 84165; 86038; 86160; 86334

== ENCOUNTER 2023-08-03 09:56 | Outpatient (CLI) | payer MEDICARE, BC ==
[2023-08-03 10:42] LABS: CALCIUM 9.1 mg/dL (8.5-10.3); CREATININE 4.1 mg/dL (0.6-1.3); POTASSIUM 4.4 mmol/L (3.5-4.5)
== END 2023-08-03 09:57 | disposition home or self-care (01) ==
LOC: LAB 09:56
PROVIDERS: ATTEND Internal Medicine Nephrology
DX: E11.9 Type 2 diabetes mellitus without complications (principal); N05.9 Unspecified nephritic syndrome with unspecified morphologic changes
CPT/HCPCS: 36415; 80048

== ENCOUNTER 2023-08-17 15:01 | Outpatient (CLI) | payer MEDICARE, BC ==
[2023-08-17 15:46] LABS: CALCIUM 8.7 mg/dL (8.5-10.3); POTASSIUM 5.1 mmol/L (3.5-4.5)
== END 2023-08-17 15:02 | disposition home or self-care (01) ==
LOC: LAB 15:01
PROVIDERS: ATTEND Internal Medicine Nephrology
DX: N05.9 Unspecified nephritic syndrome with unspecified morphologic changes (principal)
CPT/HCPCS: 36415; 80048

== ENCOUNTER 2023-08-24 14:56 | Outpatient (CLI) | payer MEDICARE, BC ==
[2023-08-24 15:30] LABS: CALCIUM 9.6 mg/dL (8.5-10.3); CREATININE 4.1 mg/dL (0.6-1.3); POTASSIUM 5.1 mmol/L (3.5-4.5)
== END 2023-08-24 14:57 | disposition home or self-care (01) ==
LOC: LAB 14:56
PROVIDERS: ATTEND Internal Medicine Nephrology
DX: N05.9 Unspecified nephritic syndrome with unspecified morphologic changes (principal)
CPT/HCPCS: 36415; 80048

== ENCOUNTER 2023-11-22 13:34 | Outpatient (CLI) | payer MEDICARE, BC ==
[2023-11-22 13:47] LABS: BASOPHILS # (AUTO) 0.1 10^3/uL (0.0-0.1); EOSINOPHILS # (AUTO) 0.1 10^3/uL (0.0-0.7); EOSINOPHILS % (AUTO) 0.8 %; HGB - HEMOGLOBIN 11.3 g/dL (14.0-18.0); LYMPHOCYTES # (AUTO) 1.5 10^3/uL (1.5-3.5); LYMPHOCYTES % (AUTO) 19.4 %; MEAN CORPUSCULAR HEMOGLOBIN 29.1 pg (27.0-31.0); MEAN CORPUSCULAR HGB CONC 31.4 g/dL (32.0-36.0); MEAN CORPUSCULAR VOLUME 92.8 fL (80.0-94.0); MEAN PLATELET VOLUME 9.9 fL (7.4-11.4); MONOCYTES # (AUTO) 0.7 10^3/uL (0.0-1.0); MONOCYTES % (AUTO) 9.7 %; NEUTROPHILS # (AUTO) 5.2 10^3/uL (1.5-6.6); NEUTROPHILS % (AUTO) 68.2 %; PLT - PLATELET COUNT 265 10^3/uL (130-450); RED BLOOD COUNT 3.88 10^6/uL (4.70-6.10); RED CELL DISTRIBUTION WIDTH 13.9 % (12.0-15.0); WHITE BLOOD COUNT 7.6 x10^3/uL (4.8-10.8)
[2023-11-22 13:57] LABS: CALCIUM 9.3 mg/dL (8.5-10.3); CREATININE 3.4 mg/dL (0.6-1.3); POTASSIUM 4.9 mmol/L (3.5-4.5)
== END 2023-11-22 13:35 | disposition home or self-care (01) ==
LOC: LAB 13:34
PROVIDERS: ATTEND Internal Medicine Nephrology
DX: N05.9 Unspecified nephritic syndrome with unspecified morphologic changes (principal); I50.32 Chronic diastolic (congestive) heart failure; N25.81 Secondary hyperparathyroidism of renal origin; D70.9 Neutropenia, unspecified; D63.1 Anemia in chronic kidney disease
CPT/HCPCS: 36415; 80048; 83970; 84100; 85025

== ENCOUNTER 2024-01-30 08:01 | Emergency (ER) | payer MEDICARE, BC ==
[2024-01-30 08:25] VITALS: BP 132/50; O2SAT 100
--- NOTE | 2024-01-30 08:44 | XRAY Report ---
PROCEDURE: Ankle 3+V RT INDICATIONS: pain /inj TECHNIQUE: 3 views of the ankle were acquired. COMPARISON: None. FINDINGS: Bones: No fractures or dislocations. Remote ORIF of the distal ulna with no evidence of hardware lee lure or loosening. 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 Ankle mortise is normally aligned. No suspicious bony lesions. Soft tissues: No tibiotalar joint effusion. Achilles tendon appears normal. Diffuse small vessel c alcifications typically indicate long-standing diabetes. Medial soft tissue swelling. IMPRESSION: Mild posttraumatic degenerative arthritis. No acute bony abnormality. Reviewed by: Valentin Mesa MD on 01/30/2024 8:43 AM PDT Approved by: Valentin Mesa MD on 01/30/2024 8:43 AM PDT Station ID: [id number]
--- NOTE | 2024-01-30 09:08 | ED Physician Documentation ---
PD HPI LOWER EXT INJURY - Stated complaint Stated Complaint: RT ANKLE PAIN - Chief complaint Chief Complaint: Trauma Ext - History obtained from History obtained from: Patient - Additional information Additional information: The patient comes to the emergency department chief complaint of trauma to his right lower leg. He states that he was putting his laundry away yesterday when he pulled the full drawer out and fell out of the dresser, striking his anterior right leg just above the ankle joint. He states that he has had "46 hours of surgery" in his life and had bone sticking out of his body and its never hurt as bad as what the pain he is experiencing from this injury. He states that is causing pain to shoot up through his entire body into his neck and into his head. He states is causing his eyes to be swollen. He denies any injuries what so ever of any other kind anytime recently. He has not been ill with anything. He states he felt fine before the drawer made contact with his leg. Normally uses a cane, but states that has been hurting to bear weight on the right leg. No other complaints at this time. PD PAST MEDICAL HISTORY - Past Medical History Cardiovascular: Hypertension Respiratory: Sleep apnea Neuro: Peripheral neuropathy, Other Endocrine/Autoimmune: Type 2 diabetes GI: GERD, Colon polyps, Ulcerative colitis : Benign prostate hypertrophy, Nocturia, Kidney stones Psych: Depression, Anxiety Musculoskeletal: Osteoarthritis Derm: None - Past Surgical History Past Surgical History: Yes General: Colonoscopy Ortho: Other - Present Medications Home Medications: Ambulatory Orders Medication Instructions Recorded Confirmed metFORMIN [Glucophage] 1,000 mg PO BIDWM 09/03/17 04/11/21 Atorvastatin Calcium 40 mg PO QPM 01/30/19 04/11/21 Lisinopril [Zestril] 20 mg PO DAILY 04/10/21 04/11/21 Aspirin [Aspirin EC] 81 mg PO DAILY 04/11/21 04/11/21 Clopidogrel [Plavix] 75 mg PO DAILY 04/11/21 04/11/21 Metoprolol Succinate 100 mg PO DAILY 04/11/21 04/11/21 amLODIPine [Norvasc] 5 mg PO DAILY 04/11/21 04/11/21 HYDROcod/ACETAM 5/325 [[place] 5/325] 1 - 2 tablet PO Q6H PRN #7 tablet 01/30/24 - Allergies Allergies/Adverse Reactions: Allergies Allergy/AdvReac Type Severity Reaction Status Date / Time oxycodone AdvReac Mild Hallucinati Verified 01/30/24 08:15 ons - Social History Does the pt smoke?: No Smoking Status: Never smoker Does the pt drink ETOH?: Yes Does the pt have substance abuse?: No - Immunizations Immunizations are current?: Yes - POLST Patient has POLST: No POLST Status: Limited Interventions (he's willing to have surgeries, abx, or blood transfusions but if has arrhythmia with or severe stoke with plegia, let him go) PD ED PE NORMAL - Vitals Vital signs reviewed: Yes - General General: Alert and oriented X 3, No acute distress, Well developed/nourished - HEENT HEENT: Atraumatic, EOMI, Moist mucous membranes - Neck Neck: Supple, no meningeal sign - Cardiac Cardiac: Strong equal pulses - Respiratory Respiratory: No respiratory distress - Derm Derm: Warm and dry, No rash, Other (3 x 4 cm contusion overlying the distal right anterior tibial area toward the medial aspect. Contusion is approximately 2 cm superior to the ankle joint.) - Extremities Extremities: No deformity, No calf tenderness / cord, Other (Contusion with mild edema as noted above. No deformity. Exquisitely tender to palpation over right lower extremity contused area. Full range of motion right ankle joint.) - Neuro Neuro: Alert and oriented X 3 - Psych Psych: Normal mood, Normal affect Results - Vitals Vitals: Vital Signs - 24 hr 01/30/24 08:08 Temperature 36.1 C L Heart Rate 83 Respiratory 20 Rate Blood Pressure 132/50 H O2 Saturation 100 Oxygen O2 Source Room air - Rads (name of study) Right ankle x-ray series Relevant Findings:: Final report received, See rad report (Negative other than arthritis) PD Medical Decision Making - ED course Complexity details: reviewed results, re-evaluated patient, considered differential, d/w patient ED course: The patient was convinced that he had sustained a fracture and that this was affecting his entire body all the way up to his head. He adamantly denied any other injuries or symptoms prior to hitting his leg with the door. His x-ray was negative and I have advised the patient of this. I am not sure what is causing his other symptoms other than that perhaps he has been tensing up overnight because of the discomfort and slept poorly or in the wrong position. The patient has been offered a walker, but states he does not want one because "I am independent". Even when I have explained that this will just be a temporary measure to help him get around until his leg is feeling better, he has declined to receive one in the emergency department. He would like some pain medicine to take at home and I have prescribed this. We have discussed the usual indications for follow-up and return. Departure - Departure Disposition: 01 Home, Self Care Clinical Impression: Contusion of leg, right Qualifiers: Encounter type: initial encounter Qualified Code(s): S80.11XA - Contusion of right lower leg, initial encounter Condition: Stable Instructions: ED Contusion Lower Ext Prescriptions: HYDROcod/ACETAM 5/325 [[place] 5/325] 1 - 2 tablet PO Q6H PRN #7 tablet PRN Reason: Pain Comments: You have a bruise over your lower adams bone. Your x-ray other than some arthritis looks good. There is no evidence of any broken bones or any other significant damage from the injury you sustained yesterday. You may have hit one of the nerves as it comes up from your foot and assigns your your leg and this may be why you are having the shooting pains. I do not know why you are having discomfort in your head and neck, as these are not in any way anatomically related to your leg, but perhaps you have been tensing up because of the discomfort in your leg. Whatever the case, there is nothing more that can be done other than to wait for your body to heal. You may apply ice packs as needed and take [id number] ibuprofen and Tylenol to help with the discomfort. I have prescribed medication for your pain and sent it to the [facility] here in [place]. You have declined to have a walker to help with getting around, but if you change your mind, you can pick 1 up either at the [facility] or one of the freestanding pharmacies, and use it until you are feeling better.
== END 2024-01-30 09:29 | disposition home or self-care (01) ==
LOC: ED 08:01
DX: S80.11XA Contusion of right lower leg, initial encounter (principal); W20.8XXA Other cause of strike by thrown, projected or falling object, initial encounter; Y93.E2 Activity, laundry; Y92.009 Unspecified place in unspecified non-institutional (private) residence as the place of occurrence of the external cause
CPT/HCPCS: 99283